=== PATIENT | female | born 1940 | race Caucasian/White ===

== ENCOUNTER 2018-02-19 08:33 | Inpatient (IN) | payer OTHER ==
[2018-01-24 14:17] VITALS: Ht 160 cm; Wt 70.4 kg
--- NOTE | 2018-01-24 14:53 | PAT Medication Instructions ---
Service Date Jan 24, 2018. Current Home Medication List Acetaminophen (Tylenol), 1 TAB PO TID Alendronate Sodium (Fosamax), 70 MG PO WK Aspirin (Aspirin Ec), 81 MG PO QAM Calcium Carbonate (Tums), 1 TAB PO QD PRN for Indigestion Cholecalciferol (Vitamin D3), 1,000 INTER.UNIT PO QAM Fluticasone Propionate (Cutivate), 1 APPLN EX QD PRN for SKIN IRRITATION Gabapentin (Neurontin), 300 MG PO BID Glimepiride (Glimepiride), 1 TAB PO DAILYBL Hctz/Losartan (Hyzaar 25MG/100MG), 1 TAB PO QPM Magnesium Hydroxide (Milk Of Magnesia), 30 ML PO QD PRN for Constipation Magnesium Oxide (Mag-Ox), 400 MG PO BID Metformin Hcl (Glucophage), 500 MG PO BID Metoprolol Succinate (Metoprolol Succinate ER), 50 MG PO QAM Multiple Vitamins W/ Minerals (Centrum Adults), 1 TAB PO QDD Nitroglycerin (Nitrostat), 0.4 MG UT UD Omeprazole (Prilosec), 20 MG PO BID Simvastatin (Zocor), 40 MG PO HS Warfarin Sodium (Warfarin Sodium), 2.5 MG PO QPM Warfarin Sodium (Warfarin Sodium), 1.25 MG PO QPM Medication Instructions For Your Scheduled Surgery -Continue as directed: Alendronate Sodium (Fosamax), 70 MG PO WK Nitroglycerin (Nitrostat), 0.4 MG UT UD -Contact your event marketing intern and/or prescriber for instructions for: Warfarin Sodium (Warfarin Sodium), 2.5 MG PO QPM Warfarin Sodium (Warfarin Sodium), 1.25 MG PO QPM - Hold the following medications 24 hours prior to surgery: Fluticasone Propionate (Cutivate), 1 APPLN EX QD PRN for SKIN IRRITATION - Hold the following medications the night before surgery: Hctz/Losartan (Hyzaar 25MG/100MG), 1 TAB PO QPM - Hold the following medications the morning of surgery: Calcium Carbonate (Tums), 1 TAB PO QD PRN for Indigestion Cholecalciferol (Vitamin D3), 1,000 INTER.UNIT PO QAM Magnesium Hydroxide (Milk Of Magnesia), 30 ML PO QD PRN for Constipation Magnesium Oxide (Mag-Ox), 400 MG PO BID - Take the following medications the morning of surgery with a sip of water: Acetaminophen (Tylenol), 1 TAB PO TID Aspirin (Aspirin Ec), 81 MG PO QAM Gabapentin (Neurontin), 300 MG PO BID Metoprolol Succinate (Metoprolol Succinate ER), 50 MG PO QAM Omeprazole (Prilosec), 20 MG PO BID - Take the following medications as scheduled the night before surgery: Acetaminophen (Tylenol), 1 TAB PO TID Calcium Carbonate (Tums), 1 TAB PO QD PRN for Indigestion (if needed) Gabapentin (Neurontin), 300 MG PO BID Glimepiride (Glimepiride), 1 TAB PO DAILYBL Magnesium Hydroxide (Milk Of Magnesia), 30 ML PO QD PRN for Constipation (if needed) Magnesium Oxide (Mag-Ox), 400 MG PO BID Metformin Hcl (Glucophage), 500 MG PO BID Multiple Vitamins W/ Minerals (Centrum Adults), 1 TAB PO QDD Omeprazole (Prilosec), 20 MG PO BID Simvastatin (Zocor), 40 MG PO HS If you have any questions please call us at [phone] or [phone] or [phone]
[2018-01-24 15:44] LABS: BASO % 0.2 %; BASO ABS # 0.01 K/uL (0-0.2); EOS % 1.4 %; EOS ABS # 0.09 K/uL (0-0.5); HEMATOCRIT 39.1 % (37-47); HEMOGLOBIN 13.4 g/dL (12.0-16.0); LYMPH % 31.8 %; LYMPH ABS # 2.03 K/uL (1.2-3.4); MEAN CELL VOLUME 91.1 fL (80-100); MEAN CORPUSCULAR HEMOGLOBIN 31.2 pg (25-34); MEAN CORPUSCULAR HGB CONC 34.3 g/dl (32-36); MEAN PLATELET VOLUME 9.8 fL (7.4-10.4); MONO % 15.4 %; MONO ABS # 0.98 K/uL (0.11-0.59); NEUT % 51.2 %; NEUT ABS # 3.27 K/uL (1.4-6.5); PLATELET COUNT 373 K/uL (130-400); RED CELL DISTRIBUTION WIDTH CV 12.8 % (11.5-14.5); RED CELL DISTRIBUTION WIDTH SD 42.5 fL (36.4-46.3); WHITE BLOOD COUNT 6.38 K/uL (4.8-10.8)
--- NOTE | 2018-01-24 15:46 | DIAGNOSTIC IMAGING REPORT ---
CHEST 2 VIEWS ROUTINE CLINICAL HISTORY: Preoperative chest COMPARISON STUDY: October 2015 FINDINGS: The heart is borderline enlarged. There is no failure. There is no focal pulmonary consolidation. There are no pleural effusions. There is a suspected small hiatal hernia.[ IMPRESSION: No active disease in the chest. Electronically signed by: Jhon Edwards M.D. 01/24/2018 3:45 PM Dictated Date/Time: 01/24/2018 3:44 PM
[2018-01-24 16:42] LABS: CALCIUM 9.4 mg/dl (8.5-10.1); CREATININE 0.75 mg/dl (0.60-1.20)
[~2018-02-19] VITALS: Ht 160 cm; Wt 70.4 kg
[2018-02-19] VITALS (9 sets, daily range): BP systolic 135–188; BP diastolic 75–89; PULSE 60–82; TEMP 36.3–36.4; O2SAT 93–100
[~2018-02-19 08:33] MED LIST: ACET-1256 PO; ACETAMINOPHEN 500 MG TAB PO SCH; ALEN70TA4 PO; ASPI81TA28 PO; CALC500C3 PO; CHOL1000 PO; CLINDAMYCIN 600 MG/54 ML D5W 54 ML IV SCH; CeleBREX 200 MG CAP PO SCH; FLUT0.0533 EX; GABA-113 PO; GABAPENTIN 300 MG CAP PO SCH; GLC/500 PO; GLIM1TAB2 PO; HYZAAR PO; LACTATED RINGER'S 1000ML 1,000 ML IV SCH; MAGN400T6 PO; MOML PO; MULT-610 PO; NTRGSL/4 UT; PRLSR20 PO; SIMV40TA4 PO; TPRSR/25 PO; WARF-280 PO
[2018-02-19 09:20] LABS: PTT PATIENT 23.7 SECONDS (21.0-31.0)
--- NOTE | 2018-02-19 10:02 | History & Physical Bridge Note ---
H&P Re-Evaluation Bridge Note: I have examined the patient, reviewed the History & Physical and in the interval since the performance of the History & Physical I have noted the following changes of clinical significance: No changes noted
--- NOTE | 2018-02-19 10:03 | History and Physical ---
History & Physical Date Feb 19, 2018. Chief Complaint Back and leg pain History of Present Illness The patient is a 77 year old female with complaints of back and leg pain Past Medical/Surgical History Medical Problems: (1) Atrial fibrillation (2) Diabetes Additional History Hepatic Disease: No Endocrine Disorder: No Kidney Disease: No Hypertension: Yes Heart Disease: No Bleeding Tendencies: No Infectious Diseases: No Allergies Coded Allergies: Morphine (Verified Allergy, Unknown, HALLUCINATES, 02/19/18) Penicillins (Verified Allergy, Unknown, Hives, 02/19/18) Meperidine (Verified Adverse Reaction, Mild, "nausea and vomiting", 02/19/18 ) Home Medications Scheduled Acetaminophen (Tylenol), 1 TAB PO TID Alendronate Sodium (Fosamax), 70 MG PO WK Aspirin (Aspirin Ec), 81 MG PO QAM Cholecalciferol (Vitamin D3), 1,000 INTER.UNIT PO QAM Gabapentin (Neurontin), 300 MG PO BID Glimepiride (Glimepiride), 1 TAB PO DAILYBL Magnesium Oxide (Mag-Ox), 400 MG PO BID Metformin Hcl (Glucophage), 500 MG PO BID Metoprolol Succinate (Metoprolol Succinate ER), 50 MG PO QAM Multiple Vitamins W/ Minerals (Centrum Adults), 1 TAB PO QDD Nitroglycerin (Nitrostat), 0.4 MG UT UD Omeprazole (Prilosec), 20 MG PO BID Simvastatin (Zocor), 40 MG PO HS Warfarin Sodium (Warfarin Sodium), 2.5 MG PO QPM Warfarin Sodium (Warfarin Sodium), 1.25 MG PO QPM [Hyzaar], 1 TAB PO QPM Scheduled PRN Calcium Carbonate (Tums), 1 TAB PO QD PRN for Indigestion Fluticasone Propionate (Cutivate), 1 APPLN EX QD PRN for SKIN IRRITATION Magnesium Hydroxide (Milk Of Magnesia), 30 ML PO QD PRN for Constipation Physical Examination Skin: warm/dry, no rash Eyes: normal inspection, EOMI, sclerae normal ENT: normal ENT inspection, pharynx normal Head: normocephalic, atraumatic Neck: supple, no adenopathy, trachea midline Respiratory/Chest: lungs clear, normal breath sounds, no respiratory distress Cardiovascular: regular rate, rhythm, no edema, no murmur Abdomen / GI: normal bowel sounds, non tender Back: normal inspection Extremities: normal inspection, normal range of motion Neurologic/Psych: no motor/sensory deficits, alert, normal reflexes, oriented x 3 Plan of Treatment Hardware removal L4-S1, L3-L4 decompression and fusion
[2018-02-19] MEDS ORDERED: FENTANYL CITRATE INJ 50 MCG/1 ML 2 ML VIAL ONE ×2 (10:11→10:39)
[2018-02-19] MEDS ORDERED: MIDAZOLAM HCL 1 MG/ML 2ML VIAL ONE (10:11)
[2018-02-19] MEDS ORDERED: BUPIVACAINE/EPINEPHRINE 0.5% MPF 1:200,000 30 ML VIAL ONE (10:12)
[2018-02-19] MEDS ORDERED: BACITRACIN 50000 UNIT VIAL ONE (10:12)
[2018-02-19] MEDS ORDERED: FENTANYL CITRATE INJ 50 MCG/1 ML 2 ML VIAL IV PRN (11:00)
[2018-02-19] MEDS ORDERED: HYDROmorphone INJ 0.5 MG/0.5 ML SYR IV PRN (11:00)
[2018-02-19] MEDS ORDERED: PROMETHAZINE HCL INJ 6.25 MG in SODIUM CHLORIDE 0.9% 50ML 50 ML IV PRN (11:00)
[2018-02-19] MEDS ORDERED: ONDANSETRON INJ 2 MG/ML 2 ML VIAL IV PRN ×2 (11:00→12:30)
[2018-02-19] MEDS ORDERED: EpHEDrine SULFATE INJ 50 MG/ML AMP IV PRN (11:00)
[2018-02-19] MEDS ORDERED: ATROPINE SULFATE 0.1 MG/ML 5ML SYR IV PRN (11:00)
[2018-02-19] MEDS ORDERED: HYDROmorphone INJ 2 MG/ML SYR/VIAL ONE ×2 (11:01→12:09)
[2018-02-19] MEDS ORDERED: DURASEAL DURAL SEALANT 5ML TOP ONE (11:44)
[2018-02-19] MEDS ORDERED: FLOSEAL HEMOSTATIC MATRIX 10ML TOP ONE (11:54)
[2018-02-19] MEDS ORDERED: PROPOFOL IV EMULSION 10 MG/ML 20 ML VIAL IV ONE (12:09)
[2018-02-19] MEDS ORDERED: ESMOLOL HCL 10 MG/ML 10 ML VIAL ONE (12:09)
[2018-02-19] MEDS ORDERED: GLYCOPYRROLATE INJ 0.2 MG/ML VIAL ONE (12:09)
[2018-02-19] MEDS ORDERED: PHENYLEPHRINE 100MCG/ML 5ML SYR ONE (12:09)
[2018-02-19] MEDS ORDERED: ONDANSETRON INJ 2 MG/ML 2 ML VIAL ONE (12:09)
[2018-02-19] MEDS ORDERED: NEOSTIGMINE METHYLSULFATE 1 MG/ML 10ML VIAL ONE (12:09)
[2018-02-19] MEDS ORDERED: DEXAMETHASONE SOD INJ 4 MG/ML VIAL ONE (12:09)
[2018-02-19] MEDS ORDERED: LIDOCAINE HCL 2% 2 ML VIAL (20MG/ML) ONE (12:09)
[2018-02-19] MEDS ORDERED: KETOROLAC TROMETHAMINE 30 MG/ML VIAL ONE (12:09)
[2018-02-19] MEDS ORDERED: ROCURONIUM BROMIDE 10 MG/ML 5 ML VIAL IV ONE (12:09)
--- NOTE | 2018-02-19 12:20 | [facility] Operative Report ---
Operative Report Operative Date Feb 19, 2018. Pre-Operative Diagnosis Previous Lumbar Fusion L4-L5, L5-S1, Spinal Stenosis L3-L4 Post-Operative Diagnosis Previous Lumbar Fusion L4-L5, L5-S1, Spinal Stenosis L3-L4 Procedure(s) Performed 1. Removal posterior segmental instrumentation L4-5 L5-S1. #2 expiration of fusion L4-5 L5-S1. #3 lumbar decompression medial facetectomies foraminotomies L3-4. #4 posterior spinal fusion L3-4. #5 placement of posterior instrumentation L3-4. #6 placement of locally harvested morselized autograft in the posterior lateral gutters. #7 placement of infuse collagen sponge combined with mass graft and ostial amp in the posterior lateral gutters. Surgeon Dr. Hernandez Pipe Finisher Surgeon(s) none Estimated Blood Loss 175 ml Findings Severe spinal stenosis Specimens A. Removed Hardware L4-S1 Anesthesia Type General Description of Procedure Patient was met with preoperatively case discussed all questions addressed. After informed consent obtained patient was taken to the operative suite underwent intubation and placed in a prone position the Randolph table on top of the Kaiser frame. All bony prominences were well-padded the eyes inspected to ensure no external pressure placed upon them. This point the lumbar spine was prepped and draped in normal sterile fashion. Sharp dissection with the assistance of Bovie cautery was performed down to and exposing the lamina of L3 and the instrumentation at the L4-L5 and S1 levels bilaterally. I then proceeded remove the hardware at L4-L5 and S1 explain the fusion mass noted to be intact. I then performed a complete laminectomy of L3 addressing severe lateral recess stenosis and foraminal disease. Marked adhesions to the dura were noted it was extremely thin. Subsequently did elect to place a cc of DuraSeal over this region. After this complete complete pedicle screws were placed in L3 and L4 bilaterally with the assistance of fluoroscopy and appropriately sized teagan placed and locked into position. Transverse processes of L3 and L4 were then burred to subcortical bleeding bone. Infuse collagen sponge master graft and locally harvested Campbell's allograft was then placed in the posterior lateral gutters. This includes ostial amp. A 15 round MAGALI drain inserted. The incision was then closed with 1 Vicryl fascia 2-0 Vicryl subcutaneously and 4-0 Monocryl for final skin closure Steri-Strips sterile dressings placed. Patient would continue to PACU stable condition. I attest to the content of the Intraoperative Record and any orders documented therein. Any exceptions are noted below.
[2018-02-19] MEDS ORDERED: SODIUM CHLORIDE 0.9% 1000ML 1,000 ML IV SCH (12:21)
[2018-02-19] MEDS ORDERED: FAMOTIDINE 20 MG TAB PO PRN (12:30)
[2018-02-19] MEDS ORDERED: ACETAMINOPHEN IV 100 ML IV PRN (12:30)
[2018-02-19] MEDS ORDERED: DO NOT ADMINISTER PNEUMOCOCCAL VACCINE PRN (12:30)
[2018-02-19] MEDS ORDERED: LORAZEPAM INJ 0.5 MG in SYRINGE 0.75 ML IV PRN (12:30)
[2018-02-19] MEDS ORDERED: MAGNESIUM HYDROXIDE SUSP 30 ML UDC PO PRN ×2 (12:30)
[2018-02-19] MEDS ORDERED: NITROGLYCERIN 0.4 MG SL PER TAB CHARGE UT PRN (12:30)
[2018-02-19] MEDS ORDERED: ALUMINUM/MAGNESIUM SUSP 30 ML UDC PO PRN (12:30)
[2018-02-19] MEDS ORDERED: METOCLOPRAMIDE HCL INJ 5 MG/ML 2 ML VIAL IV PRN (12:30)
[2018-02-19] MEDS ORDERED: hydrOXYzine HCL 25 MG TAB PO PRN (12:30)
[2018-02-19] MEDS ORDERED: NALOXONE HCL 0.4 MG/1 ML VIAL/CARP IV PRN ×2 (12:30)
[2018-02-19] MEDS ORDERED: BISACODYL 10 MG SUPP PR PRN (12:30)
[2018-02-19] MEDS ORDERED: DO NOT ADMINISTER FLU VACCINE PRN (12:30)
[2018-02-19] MEDS ORDERED: PROMETHAZINE HCL INJ 12.5 MG in SODIUM CHLORIDE 0.9% 50ML 50 ML IV PRN (12:30)
[2018-02-19] MEDS ORDERED: ACETAMINOPHEN 500 MG TAB PO PRN (12:30)
[2018-02-19] MEDS ORDERED: SOD PHOSPHATE/SOD BIPHOSPHATE ENEMA 132 ML BTL PR PRN (12:30)
[2018-02-19] MEDS ORDERED: LORAZEPAM 0.5 MG TAB PO PRN (12:30)
[2018-02-19] MEDS ORDERED: HYDROmorphone HCL 0.5MG/ML 50 ML CASSETTE ONE (12:31)
--- NOTE | 2018-02-19 13:20 | DIAGNOSTIC IMAGING REPORT ---
INTRAOPERATIVE RADIOGRAPHS CLINICAL HISTORY: L3-L4 spinal fusion. Hardware removal. Fluoroscopy time: 8 seconds. FINDINGS: 2 spot fluoroscopic views of the lumbar spine are presented. There is postlaminectomy change seen throughout the lumbar spine. Interpedicular screws are seen at L3-L4 with fusion at this level. The hardware appears intact. There is been discectomy at L4-L5 and L5-S1. IMPRESSION: Intraoperative images from L3-L4 spinal fusion as above. Electronically signed by: Trent Liz M.D. 02/19/2018 1:18 PM Dictated Date/Time: 02/19/2018 1:17 PM
--- NOTE | 2018-02-19 13:34 | Anesthesiology Progress Note ---
Anesthesia Post Op Note Date & Time Feb 19, 2018 at 13:34 Vital Signs Pain Intensity: 3 Vital Signs Past 12 Hours Date Time Temp Pulse Resp B/P (MAP) Pulse Ox O2 Delivery O2 Flow Rate FiO2 02/19/18 13:19 68 16 136/71 100 Oxymask 4 02/19/18 13:05 36.2 63 14 145/90 100 Oxymask 4 02/19/18 12:55 63 13 153/81 100 Oxymask 4 02/19/18 12:45 70 14 153/91 100 Oxymask 10 02/19/18 12:35 71 14 149/88 100 Oxymask 10 02/19/18 12:26 36.7 66 14 145/77 100 Oxymask 10 02/19/18 09:15 36.3 82 20 188/89 99 Room Air Notes Mental Status: alert / awake / arousable, participated in evaluation Pt Amnestic to Procedure: Yes Nausea / Vomiting: adequately controlled Pain: adequately controlled Airway Patency, RR, SpO2: stable & adequate BP & HR: stable & adequate Hydration State: stable & adequate Anesthetic Complications: no major complications apparent
[2018-02-19] MEDS ORDERED: GLUCOSE 10 TABS/TUBE PO PRN (14:30)
[2018-02-19] MEDS ORDERED: DEXTROSE 50% 50 ML SYR IV PRN (14:30)
[2018-02-19] MEDS ORDERED: GLUCAGON FOR INJ 1 MG VIAL SQ PRN (14:30)
[2018-02-19] MEDS ORDERED: GLUCOSE 40% GEL 15 GM TUBE PO PRN (14:30)
--- NOTE | 2018-02-19 14:34 | Medical Consult ---
Consultation Date of Consultation: Feb 19, 2018. Attending Physician: Otis Hernandez D.O. Reason for Consultation: post-op medical management History of Present Illness This is a 77yo F with a PMH of DM II, HTN, HLD, chronic A Fib and spinal stenosis with neurogenic claudication who is POD #0 s/p L4-S1 hardware removal and L3-L4 decompression fusion by Dr. Hernandez. Patient is doing well post- operatively. States that back pain is a 0/10. Denies any pain, fever, chills, lightheadedness, headache, visual changes, CP, SOB, abdominal pain, nausea, vomiting, dysuria or LE swelling. PCP is Dr. Soler. Has DM II. Most recent hgb a1c was 6.6 in Oct 2017. Takes metformin and glimepiride. Has a history of A fib with a CHADS2 score of 3, for which she is on Coumadin. Was instructed by cardiology clinic to stop Coumadin 5 days pre-operatively without need for Lovenox bridge. Denies any personal history of CHF, DVT/PE or CVA. Past Medical/Surgical History Medical Problems: (1) Atrial fibrillation Status: Chronic (2) Diabetes mellitus, type II Status: Chronic (3) GERD (gastroesophageal reflux disease) Status: Chronic (4) HLD (hyperlipidemia) Status: Chronic (5) HTN (hypertension) Status: Chronic (6) Lumbar stenosis with neurogenic claudication Status: Chronic (7) Osteoarthritis Status: Chronic (8) Osteoporosis Status: Chronic Surgical Problems: (1) H/O Spinal surgery Permanent Comment: Sep 2009: Lumbar decompression and fusion, February 2018: L4-S1 hardware removal, L3-L4 decompression and fusion. Status: Chronic Family History Diabetes mellitus Heart disease Social History Smoking Status: Never Smoker Alcohol Use: none Drug Use: none Marital Status: Housing Status: lives with significant other Occupation Status: retired Allergies Coded Allergies: Penicillins (Verified Allergy, Unknown, Hives, 02/19/18) Meperidine (Verified Adverse Reaction, Mild, "nausea and vomiting", 02/19/18 ) Morphine (Verified Adverse Reaction, Unknown, HALLUCINATES, 02/19/18) Home Medications Reported Home Medications Medications Dose Route/Sig Max Daily Dose Days Date Category Dose Instructions [Hyzaar] 1 Tab PO QPM 02/18/18 Reported 12.5/100 MG DOSE Centrum Adults (Multiple Vitamins W/ Minerals) 1 Tab Tab 1 Tab PO QDD 01/24/18 Reported Tylenol (Acetaminophen) 500 Mg Tab 1 Tab PO TID 3 01/24/18 Reported Milk Of Magnesia (Magnesium Hydroxide) 30 Ml Susp 30 Ml PO QD PRN 01/24/18 Reported Cutivate (Fluticasone Propionate) 0.05 % Cre 1 Appln EX QD PRN 01/24/18 Reported Tums (Calcium Carbonate) 500 Mg Chew 1 Tab PO QD PRN 01/24/18 Reported Mag-Ox (Magnesium Oxide) 400 Mg Tab 400 Mg PO BID 01/24/18 Reported Vitamin D3 (Cholecalciferol) 1,000 Unit Tab 1,000 Inter.unit PO QAM 11/02/15 Reported Glimepiride 1 Mg Tab 1 Tab PO DAILYBL 11/02/15 Reported Warfarin Sodium 2.5 Mg Tab 1.25 Mg PO QPM 11/02/15 Reported TAKE HALF A TABLET (1.25 MG) SUNDAY AND SUNDAY Warfarin Sodium 2.5 Mg Tab 2.5 Mg PO QPM 11/02/15 Reported TAKE 2.5 MG EVERY SUNDAY,SUNDAY,SUNDAY,SUNDAY AND SUNDAY OR OTHERWISE DIRECTED TO TAKE BY ANTICOAGULATION CLINIC//MD. Fosamax (Alendronate Sodium) 70 Mg Tab 70 Mg PO WK 11/02/15 Reported TAKE THIS MEDICATION EVERY SUNDAY 30 MINUTES BEFORE FIRST MEAL OF THE DAY WITH 8 OUNCES OF WATER. REMAIN UPRIGHT FOR 30 MINUTES AFTER TAKING. Metoprolol Succinate ER (Metoprolol Succinate) 25 Mg Tabcr 50 Mg PO QAM 11/02/15 Reported Glucophage (Metformin Hcl) 500 Mg Tab 500 Mg PO BID 11/02/15 Reported Zocor (Simvastatin) 40 Mg Tab 40 Mg PO HS 11/02/15 Reported Aspirin Ec (Aspirin) 81 Mg Tab 81 Mg PO QAM 11/02/15 Reported Prilosec (Omeprazole) 20 Mg Capcr 20 Mg PO BID 08/24/09 Reported TAKES BEFORE BREAKFAST AND DINNER Neurontin (Gabapentin) 300 Mg Cap 300 Mg PO BID 08/24/09 Reported Nitrostat (Nitroglycerin) 0.4 Mg Tab 0.4 Mg UT UD 08/24/[address] ONE TABLET UNDER THE TONGUE EVERY 5 MINUTES FOR UP TO 3 DOSES OVER 15 MINUTES IF NEEDED FOR CHEST PAIN. Current Inpatient Medications Current Inpatient Medications Medications (Trade) Dose Ordered Sig/Aly Route Start Time Stop Time Status Last Admin Dose Admin Fentanyl Citrate (Fentanyl Inj) 50 mcg Q5M PRN IV 02/19/18 11:00 02/19/18 16:00 Hydromorphone HCl (Dilaudid Inj) 0.5 mg Q5M PRN IV 02/19/18 11:00 02/19/18 16:00 Ondansetron HCl (Zofran Inj) 4 mg ONE PRN IV 02/19/18 11:00 02/19/18 16:00 Promethazine HCl 6.25 mg/Sodium Chloride 50.25 ml @ 202 mls/hr ONE PRN IV 02/19/18 11:00 02/19/18 16:00 Ephedrine Sulfate (EpHEDrine SULFATE INJ) 5 mg Q5M PRN IV 02/19/18 11:00 02/19/18 16:00 Atropine Sulfate (Atropine Sulfate 0.1mg/ml Inj) 0.5 mg Q1M PRN IV 02/19/18 11:00 02/19/18 16:00 Clindamycin Phosphate 600 mg/ Dextrose 54 ml @ 100 mls/hr Q8H IV 02/19/18 18:00 02/20/18 02:33 Promethazine HCl 12.5 mg/Sodium Chloride 50.5 ml @ 202 mls/hr Q6H PRN IV 02/19/18 12:30 03/21/18 12:29 Ondansetron HCl (Zofran Inj) 4 mg Q6H PRN IV 02/19/18 12:30 03/21/18 12:29 Metoclopramide HCl (Reglan Inj) 10 mg Q6H PRN IV 02/19/18 12:30 03/21/18 12:29 Lorazepam (Ativan Tab) 0.5 mg Q8H PRN PO 02/19/18 12:30 03/21/18 12:29 Lorazepam 0.5 mg/ Syringe 1 ml @ 1 mls/min Q8H PRN IV 02/19/18 12:30 03/21/18 12:29 Pneumococcal Polysaccharide Vaccine 1 ea PRN PRN N/A 02/19/18 12:30 03/21/18 12:29 Influenza Virus Vacc Triv Types A&B 1 ea PRN PRN N/A 02/19/18 12:30 03/21/18 12:29 Polyethylene (Miralax Powder Packet) 17 gm Q6 PO 02/21/18 06:00 03/23/18 05:59 Bisacodyl (Dulcolax Supp) 10 mg DAILY PRN DC 02/19/18 12:30 03/21/18 12:29 Magnesium Hydroxide (Milk Of Magnesia Susp) 30 ml DAILY PRN PO 02/19/18 12:30 03/21/18 12:29 Hydromorphone HCl (Dilaudid Inj) 0.5 mg Q3H PRN IV 02/20/18 06:00 03/06/18 05:59 Oxycodone HCl (Roxicodone Immediate Rel Tab) 5-10mg prn moderate to sev... Q4H PRN PO 02/20/18 06:00 03/06/18 05:59 Sodium Chloride 1,000 ml @ 150 mls/hr Q6H40M IV 02/19/18 12:21 03/21/18 12:20 Acetaminophen (Tylenol Tab) 1,000 mg Q8H PRN PO 02/19/18 12:30 03/21/18 12:29 Acetaminophen 100 ml @ 400 mls/hr Q8H PRN IV 02/19/18 12:30 03/21/18 12:29 Naloxone HCl (Narcan Inj) 0.1 mg Q5M PRN IV 02/19/18 12:30 03/21/18 12:29 Senna/Docusate Sodium (Senokot S Tab) 2 tab HS PO 02/19/18 21:00 03/21/18 20:59 Sodium Biphosphate/ Sodium Phosphate (Fleet Enema) 132 ml ONE PRN DC 02/19/18 12:30 03/21/18 12:29 Hydroxyzine HCl (Vistaril Tab) 25 mg Q8H PRN PO 02/19/18 12:30 03/21/18 12:29 Al Hydroxide/Mg Hydroxide (Maalox Susp) 30 ml Q6H PRN PO 02/19/18 12:30 03/21/18 12:29 Famotidine (Pepcid Tab) 20 mg Q12 PRN PO 02/19/18 12:30 03/21/18 12:29 Diphenhydramine HCl (Benadryl Cap) 25 mg Q6H PRN PO 02/19/18 12:30 03/21/18 12:29 Miscellaneous Information (Discontinue DIRECT MAIL MARKETER) 1 ea TODAY@0600 N/A 02/20/18 06:00 02/20/18 06:01 Naloxone HCl (Narcan Inj) 0.1 mg Q5M PRN IV 02/19/18 12:30 02/20/18 06:00 Hydromorphone HCl (Dilaudid Roller Repairer) 25 mg PRN PRN IV 02/19/18 12:30 02/20/18 06:00 Sodium Chloride 1,000 ml @ 15 mls/hr Q24H IV 02/19/18 12:21 02/20/18 06:00 Aspirin (Ecotrin Tab) 81 mg QAM PO 02/20/18 09:00 03/22/18 08:59 Gabapentin (Neurontin Cap) 300 mg BID PO 02/19/18 21:00 03/21/18 20:59 Magnesium Oxide (Mag-Ox Tab) 400 mg BID PO 02/19/18 21:00 03/21/18 20:59 Metoprolol Succinate (Toprol Xl Tab) 50 mg QAM PO 02/20/18 09:00 03/22/18 08:59 Nitroglycerin (Nitrostat Tab) 0.4 mg UD PRN UT 02/19/18 12:30 03/21/18 12:29 Simvastatin (Zocor Tab) 40 mg HS PO 02/19/18 21:00 03/21/18 20:59 Pantoprazole Sodium (Protonix Tab) 40 mg BID PO 02/19/18 21:00 03/21/18 20:59 Losartan Potassium (coZAAR TAB) 100 mg QPM PO 02/19/18 21:00 03/21/18 20:59 Hydromorphone HCl (Dilaudid Inj) 1 mg Q3H PRN IV 02/20/18 06:00 03/06/18 05:59 Hydrochlorothiazide (Hydrochlorothiazide Tab) 12.5 mg QPM PO 02/19/18 21:00 03/21/18 20:59 Insulin Glargine (Lantus Solostar Pen) 6 units Q12 SC 02/19/18 21:00 03/21/18 20:59 UNV Insulin Aspart (novoLOG ASPART) SLIDING SCALE If C... ACHS SC 02/19/18 17:15 03/21/18 17:14 UNV Glucose (Glucose 40% Gel) 15-30 GRAMS 15 GRAMS... UD PRN PO 02/19/18 14:30 03/21/18 14:29 UNV Glucose (Glucose Chew Tab) 4-8 Tablets 4 Tabl... UD PRN PO 02/19/18 14:30 03/21/18 14:29 UNV Dextrose (Dextrose 50% 50ML Syringe) 25-50ML OF 50% DW IV FOR... UD PRN IV 02/19/18 14:30 03/21/18 14:29 UNV Glucagon (Glucagon Inj) 1 mg UD PRN SQ 02/19/18 14:30 03/21/18 14:29 UNV Review of Systems Ten systems reviewed and negative except as noted in the HPI. Physical Exam Date Time Temp Pulse Resp B/P (MAP) Pulse Ox O2 Delivery O2 Flow Rate FiO2 02/19/18 14:05 60 17 140/86 (104) 100 02/19/18 13:35 100 Nasal Cannula 4.0 02/19/18 13:35 Nasal Cannula 2.0 02/19/18 13:35 36.4 68 18 152/84 (106) 100 Nasal Cannula 4.0 02/19/18 13:19 68 16 136/71 100 Oxymask 4 02/19/18 13:05 36.2 63 14 145/90 100 Oxymask 4 02/19/18 12:55 63 13 153/81 100 Oxymask 4 02/19/18 12:45 70 14 153/91 100 Oxymask 10 02/19/18 12:35 71 14 149/88 100 Oxymask 10 02/19/18 12:26 36.7 66 14 145/77 100 Oxymask 10 02/19/18 09:15 36.3 82 20 188/89 99 Room Air General Appearance: WD/WN, no apparent distress Head: normocephalic, atraumatic Eyes: normal inspection, PERRL, sclerae normal ENT: normal ENT inspection, hearing grossly normal, pharynx normal (moist mucous membranes ) Neck: supple, no adenopathy, trachea midline Respiratory/Chest: chest non-tender, lungs clear, normal breath sounds, no respiratory distress, no accessory muscle use, + pertinent finding (Normal O2 saturation on 2L NC) Cardiovascular: no murmur, normal peripheral pulses, + irregularly irregular Abdomen/GI: non tender, soft, no organomegaly Back: + pertinent finding (Dressing in place. Clean, dry, intact. Drain visualized. ) Extremities/Musculoskelatal: normal inspection, no calf tenderness, no pedal edema Neurologic/Psych: no motor/sensory deficits, alert, normal mood/affect, oriented x 3 Skin: normal color, warm/dry Laboratory Results Last 24 Hours Test 02/19/18 09:03 02/19/18 09:47 02/19/18 12:30 Prothrombin Time 10.7 SECONDS Prothromb Time International Ratio 1.0 Activated Partial Thromboplast Time 23.7 SECONDS Partial Thromboplastin Ratio 0.9 Bedside Glucose 129 mg/dl 134 mg/dl Assessment & Plan This is a 77yo F with a PMH of DM II, HTN, HLD, chronic A Fib and spinal stenosis with neurogenic claudication who is POD #0 s/p L4-S1 hardware removal and L3-L4 decompression fusion by Dr. Hernandez. Spinal stenosis s/p hardware removal, decompression fusion: -POD #0 -L4-S1 hardware removal and L3-L4 decompression fusion by Dr. Hernandez. -Doing well post-operatively -Per ortho for pain control, wound care, anticoagulation and activities -Monitor H&H, continue incentive spirometry, PT/OT when appropriate DM II: -Hgb a1c was 6.6 in Oct 2017 -Repeat a1c is pending -Hold home oral agents -Received 12mg decadron intraoperatively -Insulin SSI /Basal bolus insulin per protocol while in-patient -BSG check AC HS HTN: -Continue hctz/losartan, metoprolol Chronic A Fib: -Continue metoprolol -Coumadin held 5 days pre-operatively, per cardio -CHADS2 score of 3 -Plan to resume post-operatively, per surgery HLD: -Cont statin PCP: Karlene Dispo: Per ortho Patient seen in collaboration with Dr. Trevizo. Please see addendum. Thank you for this consultation. We will follow the patient with you during their hospital stay. You can reach a member of the [facility] via pager @ . Patient is seen and examined at bedside Post OP. Doing well post operatively. Pain is controlled. Denies chest pain, SOB, dizziness. Medications reviewed. Agree with above management and documentation. Patient care is coordinated with Sari Rojas PA-C. Please call with any questions.
[2018-02-19] MEDS: CLINDAMYCIN IV 600 MG in DEXTROSE 5% 50ML 50 ML IV SCH (17:50)
[2018-02-19] MEDS: SODIUM CHLORIDE 0.9% 1000ML 1,000 ML IV SCH (17:50)
[2018-02-19] MEDS: INSULIN ASPART 100 UNITS/ML 3 ML PEN SC SCH ×2 (18:30→20:52)
[2018-02-19] MEDS: HYDROmorphone HCL 0.5MG/ML 50 ML CASSETTE IV PRN ×2 (19:02→22:58)
[2018-02-19] MEDS: HYDROCHLOROTHIAZIDE 25 MG TAB PO SCH (20:36)
[2018-02-19] MEDS: SIMVASTATIN 40 MG TAB PO SCH (20:43)
[2018-02-19] MEDS: GABAPENTIN 300 MG CAP PO SCH (20:44)
[2018-02-19] MEDS: DOCUSATE SODIUM/SENNA 50/8.6MG TAB PO SCH (20:44)
[2018-02-19] MEDS: PANTOprazole SOD 40 MG TAB PO SCH (20:44)
[2018-02-19] MEDS: LOSARTAN POTASSIUM 50 MG TAB PO SCH (20:44)
[2018-02-19] MEDS: MAGNESIUM OXIDE 400 MG TAB PO SCH (20:45)
[2018-02-19] MEDS: INSULIN GLARGINE SOLOSTAR 100 UNITS/ML 3 ML PEN SC SCH (20:58)
[2018-02-19] MEDS ORDERED: INSULIN GLARGINE SOLOSTAR 100 UNITS/ML 3 ML PEN SC SCH (21:00)
[2018-02-19] MEDS ORDERED: HYZ/10015 PO (21:38)
[2018-02-20] MEDS ORDERED: INSULIN ASPART 100 UNITS/ML 3 ML PEN SC ONE (01:00)
[2018-02-20] MEDS: CLINDAMYCIN IV 600 MG in DEXTROSE 5% 50ML 50 ML IV SCH (01:06)
[2018-02-20] MEDS: SODIUM CHLORIDE 0.9% 1000ML 1,000 ML IV SCH (01:07)
[2018-02-20 03:12] VITALS: BP 147/79; PULSE 88; TEMP 36.6; O2SAT 97
[2018-02-20] MEDS ORDERED: DC PCA SCH (06:00)
[2018-02-20] MEDS ORDERED: HYDROmorphone INJ 2 MG/ML SYR/VIAL IV PRN (06:00)
[2018-02-20] MEDS ORDERED: HYDROmorphone INJ 0.5 MG/0.5 ML SYR IV PRN (06:00)
[2018-02-20] MEDS ORDERED: NURSING DECISION MEDICATION ORDER SCH (06:00)
[2018-02-20 06:36] LABS: HEMATOCRIT 31.8 % (37-47); IG# 0.01 K/uL (0.00-0.02); LYMPH % 6.7 %; LYMPH ABS # 0.67 K/uL (1.2-3.4); MEAN CELL VOLUME 91.4 fL (80-100); MEAN CORPUSCULAR HEMOGLOBIN 31.6 pg (25-34); MEAN CORPUSCULAR HGB CONC 34.6 g/dl (32-36); MEAN PLATELET VOLUME 9.5 fL (7.4-10.4); MONO % 8.5 %; MONO ABS # 0.85 K/uL (0.11-0.59); NEUT % 84.7 %; NEUT ABS # 8.43 K/uL (1.4-6.5); PLATELET COUNT 262 K/uL (130-400); RED CELL DISTRIBUTION WIDTH CV 12.8 % (11.5-14.5); RED CELL DISTRIBUTION WIDTH SD 42.9 fL (36.4-46.3); WHITE BLOOD COUNT 9.96 K/uL (4.8-10.8)
[2018-02-20 07:12] LABS: CREATININE 0.64 mg/dl (0.60-1.20); POTASSIUM 4.2 mmol/L (3.5-5.1)
[2018-02-20 07:56] VITALS: BP 158/88; PULSE 80; TEMP 36.6; O2SAT 95
[2018-02-20] MEDS: OXYCODONE HCL IR 5 MG TAB (IMMEDIATE RELEASE) PO PRN ×3 (07:58→23:35)
[2018-02-20] MEDS: ASPIRIN 81 MG ECTAB PO SCH (08:19)
[2018-02-20] MEDS: MAGNESIUM OXIDE 400 MG TAB PO SCH ×2 (08:20→21:02)
[2018-02-20] MEDS: PANTOprazole SOD 40 MG TAB PO SCH ×2 (08:20→21:02)
[2018-02-20] MEDS: GABAPENTIN 300 MG CAP PO SCH ×2 (08:20→21:02)
[2018-02-20] MEDS: METOPROLOL SUCC 50MG EXT REL TAB PO SCH (08:21)
[2018-02-20 08:31] VITALS: O2SAT 95
[2018-02-20] MEDS: INSULIN ASPART 100 UNITS/ML 3 ML PEN SC SCH ×4 (08:39→21:11)
[2018-02-20] MEDS: INSULIN GLARGINE SOLOSTAR 100 UNITS/ML 3 ML PEN SC SCH ×2 (08:40→21:12)
--- NOTE | 2018-02-20 10:21 | Consultant Recommendations ---
Job Estimator Recommendations Date of Service Feb 20, 2018. Job Estimator Recommendations Subjective: Patient reports she is doing well after her back surgery. Denies acute pain. Physical Exam General: no acute distress, sitting in chair Back: able to lean forward on exam, there is a MAGALI drain collecting blood Lungs: CTABL, no wheezing Heart: heart rate and rhythm sounds regular Abdomen: soft, nontende,r + bowel sounds Extremities: no edema, able to raise both legs on her own power while sitting in chair. Job Estimator recommendations Patient with severe spinal stenosis s/p : Removal posterior segmental instrumentation L4-5 L5-S1. #2 expiration of fusion L4-5 L5-S1. #3 lumbar decompression medial facetectomies foraminotomies L3-4. #4 posterior spinal fusion L3-4. #5 placement of posterior instrumentation L3-4. #6 placement of locally harvested morselized autograft in the posterior lateral gutters. #7 placement of infuse collagen sponge combined with mass graft and ostial amp in the posterior lateral gutters. -Prior to surgery, patient had been on Coumadin at home for anticoagulation because of atrial fibrillation. Patient did stop taking coumadin during the days leading to the surgery. Would recommend that coumadin be restarted after MAGALI drain is removed and when orthopedics service deems that patient will be a low bleeding risk post-op. -Continue metoprolol for heart rate control -HTN history: Continue hctz/losartan -HLD: Cont statin -DM II: continue insulin for now. Restart home oral agents when near time for discharge -mild hyponatremia. outpatient baseline labs of serum sodium 133. in the hospital the serum sodium is 130 and then 129. recommend monitoring serum sodium levels for now. adding serum and urine osmolality labs DVT ppx as per orthopedics, restart coumadin later as per orthopedics
--- NOTE | 2018-02-20 10:47 | Anesthesiology Progress Note ---
Anesthesia Post Op Note Date & Time Feb 20, 2018 at 10:47 Vital Signs Vital Signs Past 12 Hours Date Time Temp Pulse Resp B/P (MAP) Pulse Ox O2 Delivery O2 Flow Rate FiO2 02/20/18 08:31 95 Room Air 02/20/18 08:03 Room Air 02/20/18 07:56 36.6 80 20 158/88 (111) 95 Room Air 02/20/18 03:12 36.6 88 16 147/79 (101) 97 Room Air 02/19/18 23:20 Room Air Notes Mental Status: alert / awake / arousable, participated in evaluation Pt Amnestic to Procedure: Yes Nausea / Vomiting: adequately controlled Pain: adequately controlled Airway Patency, RR, SpO2: stable & adequate BP & HR: stable & adequate Hydration State: stable & adequate Anesthetic Complications: no major complications apparent
[2018-02-20 11:57] VITALS: BP 144/84; PULSE 82; TEMP 36.4; O2SAT 96
[2018-02-20] MEDS ORDERED: RXC5 PO (13:44)
--- NOTE | 2018-02-20 13:45 | Discharge Instructions ---
Discharge Instructions Date of Service Feb 20, 2018. Admission Reason for Admission: Spinal Stenosis Discharge Discharge Diagnosis / Problem: lumbar stenosis Discharge Goals Goal(s): Improve function Activity Recommendations Activity Limitations: per Instructions/Follow-up section . Instructions / Follow-Up Instructions / Follow-Up ACTIVITY RECOMMENDATIONS: SELF CARE INSTRUCTIONS AFTER THORACIC/LUMBAR FUSIONS 1. You may walk to your tolerance. It is good exercise for your legs and back. Expect some back and intermittent leg aches and pains. 2. You may perform "counter-top" level activities (make a sandwich, brian with a project, etc.). 3. No bending or lifting of more than 10 pounds or back twisting of any nature (roll like a log when turning in bed). 4. You may ride in a car for 20-30 minutes at a time. No driving until after your first visit with your doctor. 5. Frequent changes of position and restricting sitting to 30 minutes at a time will help limit the amount of back spasms and stiffness you may experience. 6. You may discontinue the use of ambulatory aids (cane, crutches, etc.) once your strength and confidence allow. 7. You may leaf tinner the shower and let water strike your incision when you arrive home at least once daily. Do not take a tub bath, sit in a hot tub or go into a swimming pool until after your first recheck in the office. SPECIAL CARE INSTRUCTIONS: VERY IMPORTANT TO READ AND REVIEW A. Your surgical incision has been closed with a cosmetic suture under the skin that will dissolve in about 6 weeks. In 14 days, you can use a pair of clean scissors and cut the suture that is left outside of the skin at the ends of your incision. 1. The small skin tapes can be removed 7 days after surgery if they have not fallen off by that point. 2. You may keep the wound open to air as much as possible to promote healing after post-op day number 5 unless told otherwise by your doctor. 3. If you think the wound looks like it is becoming infected (redness or worsening drainage) and/or you are experiencing fever, chill or worsening back pain and muscle spasms, contact the office so that we may evaluate you as soon as possible. B. Complications are uncommon, but please contact us if you have any signs or symptoms of: 1. wound infection (fever higher than 102.5 degrees F, redness, separation of wound, drainage, or increasing pain from the incision) 2. blood clots in legs (pain, swelling, redness and warmth in legs) 3. urinary tract infection (fever higher than 102.5 degrees F, burning upon urination or increased frequency of urination) 4. nerve problems (inability to walk on your toes or heels, numbness, loss of bowel or bladder control) 5. any other symptoms that concern you C. Please call the office at if you have any concerns or questions about your operation or recovery. D. No smoking! Smoking drastically decreases the chance of a solid fusion. E. Do not take any anti-inflammatory medications (Indocin, Advil, Motrin, Aspirin, Naprosyn, etc.) as these may inhibit the chance of a solid fusion. Tylenol is okay to take for pain. MANAGING PAIN AFTER SPINAL SURGERY 1. Narcotic medication is intended for short-term use and will be provided for surgical pain. Surgical pain usually lasts for a period of 4-6 weeks. Narcotic medication includes Percocet, Vicodin, Darvocet, Tylenol #3 or Lortab. 2. Longer-term pain is more appropriately treated with non-narcotic medication such as Tylenol ES. 3. Muscle spasm is not appropriately treated with narcotics. Muscle relaxers such as Soma, Flexeril or Skelaxin can be used along with Tylenol ES. 4. Remember that we all live with some "aches and pains". This is not unusual or uncommon after an injury or as we get older. a. Back pain is expected and may include muscle spasms for 4 to 6 weeks after surgery. The pain should gradually improve. If the pain worsens for no apparent reason, please contact the office. b. Intermittent leg pain may also be experienced and should not be concerned about unless it worsens for no apparent reason. If so, please contact the office. 5. We will provide appropriate medication within the normal guidelines of their prescribed use. We will also be very cautious and aware of potential abuse and extended duration of patients' medication needs. a. Pain medications are for your comfort and to assist with sleep and rest so that the tissue can heal. They are not provided in order to return to normal activity and should not be used through the day. To do so or worsening pain at night can result from ongoing tissue damage and development of tolerance to the prescribed medicine. 6. Please allow 2-3 days to process refills. Prescriptions will not be mailed but must be picked up at the office. FOLLOW UP VISIT: Keep your scheduled follow-up appointment. Any questions, please call the office at . Current Hospital Diet Patient's current hospital diet: Diabetes Type 2 Diet Discharge Diet Recommended Diet: Regular Diet Procedures Procedures Performed: 1. Removal posterior segmental instrumentation L4-5 L5-S1. #2 expiration of fusion L4-5 L5-S1. #3 lumbar decompression medial facetectomies foraminotomies L3-4. #4 posterior spinal fusion L3-4. #5 placement of posterior instrumentation L3-4. #6 placement of locally harvested morselized autograft in the posterior lateral gutters. #7 placement of infuse collagen sponge combined with mass graft and ostial amp in the posterior lateral gutters. Pending Studies Studies pending at discharge: no Laboratory Results Hemoglobin A1c Test 02/20/18 05:55 Range/Units Estimated Average Glucose 154 mg/dl Hemoglobin A1c 7.0 H 4.5-5.6 % Medical Emergencies . Who to Call and When: Medical Emergencies: If at any time you feel your situation is an emergency, please call 911 immediately. . Non-Emergent Contact Non-Emergency issues call your: Primary Care Provider . "Provider Documentation" section prepared by Otis Hernandez. . [employer] Recommendations Line As[employer]er [employer] Recommendations: Subjective: Patient reports she is doing well after her back surgery. Denies acute pain. Physical Exam General: no acute distress, sitting in chair Back: able to lean forward on exam, there is a MAGALI drain collecting blood Lungs: CTABL, no wheezing Heart: heart rate and rhythm sounds regular Abdomen: soft, nontende,r + bowel sounds Extremities: no edema, able to raise both legs on her own power while sitting in chair. Line As[employer]er [employer] recommendations Patient with severe spinal stenosis s/p : Removal posterior segmental instrumentation L4-5 L5-S1. #2 expiration of fusion L4-5 L5-S1. #3 lumbar decompression medial facetectomies foraminotomies L3-4. #4 posterior spinal fusion L3-4. #5 placement of posterior instrumentation L3-4. #6 placement of locally harvested morselized autograft in the posterior lateral gutters. #7 placement of infuse collagen sponge combined with mass graft and ostial amp in the posterior lateral gutters. -Prior to surgery, patient had been on Coumadin at home for anticoagulation because of atrial fibrillation. Patient did stop taking coumadin during the days leading to the surgery. Would recommend that coumadin be restarted after MAGALI drain is removed and when orthopedics service deems that patient will be a low bleeding risk post-op. -Continue metoprolol for heart rate control -HTN history: Continue hctz/losartan -HLD: Cont statin -DM II: continue insulin for now. Restart home oral agents when near time for discharge -mild hyponatremia. outpatient baseline labs of serum sodium 133. in the hospital the serum sodium is 130 and then 129. recommend monitoring serum sodium levels for now. adding serum and urine osmolality labs DVT ppx as per orthopedics, restart coumadin later as per orthopedics
--- NOTE | 2018-02-20 14:22 | Progress Note ---
Progress Note Date of Service Feb 20, 2018. Progress Note Patient's back pain is controlled. Leg symptoms are markedly improved. Vital signs are stable. On exam she is in the chair at the bedside. She is excellent strength testing. She appears comfortable. Assessment status post lumbar decompression fusion. Plan at this time will continue physical therapy advance her bowel regimen anticipate home the next few days with home health.
[2018-02-20 15:07] VITALS: BP 128/72; PULSE 76; TEMP 36.7; O2SAT 95
[2018-02-20] MEDS: SIMVASTATIN 40 MG TAB PO SCH (21:02)
[2018-02-20] MEDS: DOCUSATE SODIUM/SENNA 50/8.6MG TAB PO SCH (21:02)
[2018-02-20] MEDS: LOSARTAN POTASSIUM 50 MG TAB PO SCH (21:03)
[2018-02-20] MEDS: HYDROCHLOROTHIAZIDE 25 MG TAB PO SCH (21:04)
[2018-02-20 22:58] VITALS: BP 143/84; PULSE 72; TEMP 36.9; O2SAT 95
[2018-02-21] MEDS: OXYCODONE HCL IR 5 MG TAB (IMMEDIATE RELEASE) PO PRN ×3 (03:38→18:14)
[2018-02-21] MEDS: POLYETHYLENE (MIRALAX) 17 GM PACK PO SCH ×3 (05:57→17:40)
[2018-02-21 07:07] VITALS: BP 107/66; PULSE 103; TEMP 37.8; O2SAT 96
[2018-02-21 07:45] VITALS: O2SAT 96
[2018-02-21] MEDS ORDERED: KETOROLAC TROMETHAMINE 15 MG/ML VIAL IV PRN (08:00)
[2018-02-21] MEDS ORDERED: KETOROLAC TROMETHAMINE 15 MG/ML VIAL IV. SCH (08:30)
[2018-02-21] MEDS: MAGNESIUM OXIDE 400 MG TAB PO SCH ×2 (08:44→21:04)
[2018-02-21] MEDS: PANTOprazole SOD 40 MG TAB PO SCH ×2 (08:45→21:04)
[2018-02-21] MEDS: METOPROLOL SUCC 50MG EXT REL TAB PO SCH (08:45)
[2018-02-21] MEDS: GABAPENTIN 300 MG CAP PO SCH ×2 (08:45→21:04)
[2018-02-21] MEDS: ASPIRIN 81 MG ECTAB PO SCH (08:46)
[2018-02-21] MEDS: INSULIN GLARGINE SOLOSTAR 100 UNITS/ML 3 ML PEN SC SCH ×2 (09:00→21:07)
[2018-02-21] MEDS: INSULIN ASPART 100 UNITS/ML 3 ML PEN SC SCH ×4 (09:01→21:08)
--- NOTE | 2018-02-21 10:24 | Progress Note ---
Progress Note Date of Service Feb 21, 2018. Progress Note Patient's mostly complaining of back pain. Again her leg symptoms are markedly improved. She is ambulating with assistance. On exam she is good strength testing. Assessment status post lumbar decompression fusion. Plan at this time we will add Toradol to her pain medications hopefully this will help with her lumbar soreness. We will continue to advance physical therapy as tolerated.
[2018-02-21 11:40] VITALS: TEMP 36.3
[2018-02-21 15:05] VITALS: BP 144/82; PULSE 93; TEMP 36.5; O2SAT 97
[2018-02-21] MEDS: SODIUM CHLORIDE 0.9% 1000ML 1,000 ML IV SCH (17:39)
--- NOTE | 2018-02-21 17:53 | Progress Note ---
Progress Note Date of Service Feb 21, 2018. Progress Note Subjective: Patient reports she is doing well after her back surgery. Denies acute pain. Physical Exam General: no acute distress, sitting in chair Back: able to lean forward on exam, there is a MAGALI drain collecting blood Lungs: CTABL, no wheezing Heart: heart rate and rhythm sounds regular Abdomen: soft, nontende,r + bowel sounds Extremities: no edema, able to raise both legs on her own power while sitting in chair. Hospitalist Phosphatic Fertilizer Supervisor recommendations Patient with severe spinal stenosis s/p : Removal posterior segmental instrumentation L4-5 L5-S1. #2 expiration of fusion L4-5 L5-S1. #3 lumbar decompression medial facetectomies foraminotomies L3-4. #4 posterior spinal fusion L3-4. #5 placement of posterior instrumentation L3-4. #6 placement of locally harvested morselized autograft in the posterior lateral gutters. #7 placement of infuse collagen sponge combined with mass graft and ostial amp in the posterior lateral gutters. -Prior to surgery, patient had been on Coumadin at home for anticoagulation because of atrial fibrillation. Patient did stop taking coumadin during the days leading to the surgery. Would recommend that coumadin be restarted after MAGALI drain is removed and when orthopedics service deems that patient will be a low bleeding risk post-op. -Continue metoprolol for heart rate control -HTN history: Continue hctz/losartan -HLD: Cont statin -DM II: continue insulin for now. Restart home oral agents when near time for discharge -mild hyponatremia. outpatient baseline labs of serum sodium 133. in the hospital the serum sodium is 130 and then 129 on 02/20/18. Serum and urine osmolality labs from 02/20/18 reviewed. No labs drawn today. Start IV normal saline 75 cc/hr for now. send comprehensive metabolic panel tomorrow AM -MAGALI drain still in place. send CBC tomorrow AM DVT ppx as per orthopedics, restart coumadin later as per orthopedics
[2018-02-21 21:00] VITALS: BP 157/75; PULSE 99
[2018-02-21] MEDS: DOCUSATE SODIUM/SENNA 50/8.6MG TAB PO SCH (21:00)
[2018-02-21] MEDS: SIMVASTATIN 40 MG TAB PO SCH (21:04)
[2018-02-21] MEDS: HYDROCHLOROTHIAZIDE 25 MG TAB PO SCH (21:04)
[2018-02-21] MEDS: LOSARTAN POTASSIUM 50 MG TAB PO SCH (21:05)
[2018-02-21] MEDS ORDERED: NURSING VERBAL MED ORDER ONE (22:00)
[2018-02-21 23:43] VITALS: BP 153/118; PULSE 94; TEMP 36.6; O2SAT 96
[2018-02-22] MEDS: OXYCODONE HCL IR 5 MG TAB (IMMEDIATE RELEASE) PO PRN ×3 (02:15→16:05)
[2018-02-22 03:50] VITALS: BP 115/66
[2018-02-22] MEDS: SODIUM CHLORIDE 0.9% 1000ML 1,000 ML IV SCH (05:07)
[2018-02-22 06:29] LABS: BASO % 0.1 %; BASO ABS # 0.01 K/uL (0-0.2); EOS ABS # 0.07 K/uL (0-0.5); HEMATOCRIT 28.2 % (37-47); HEMOGLOBIN 9.9 g/dL (12.0-16.0); IG# 0.02 K/uL (0.00-0.02); LYMPH % 20.8 %; LYMPH ABS # 1.51 K/uL (1.2-3.4); MEAN CELL VOLUME 90.7 fL (80-100); MEAN CORPUSCULAR HEMOGLOBIN 31.8 pg (25-34); MEAN CORPUSCULAR HGB CONC 35.1 g/dl (32-36); MEAN PLATELET VOLUME 9.5 fL (7.4-10.4); MONO % 12.5 %; MONO ABS # 0.91 K/uL (0.11-0.59); NEUT % 65.3 %; NEUT ABS # 4.75 K/uL (1.4-6.5); PLATELET COUNT 256 K/uL (130-400); RED CELL DISTRIBUTION WIDTH CV 12.9 % (11.5-14.5); RED CELL DISTRIBUTION WIDTH SD 42.7 fL (36.4-46.3); WHITE BLOOD COUNT 7.27 K/uL (4.8-10.8)
[2018-02-22 07:05] LABS: ALBUMIN 2.4 gm/dl (3.4-5.0); CALCIUM 7.8 mg/dl (8.5-10.1); CREATININE 0.67 mg/dl (0.60-1.20); POTASSIUM 3.5 mmol/L (3.5-5.1)
[2018-02-22 07:07] LABS: TOTAL PROTEIN 5.6 gm/dl (6.4-8.2)
[2018-02-22 07:45] VITALS: BP 146/80; PULSE 88; TEMP 36.8; O2SAT 94
[2018-02-22 08:22] VITALS: O2SAT 94
[2018-02-22] MEDS: INSULIN GLARGINE SOLOSTAR 100 UNITS/ML 3 ML PEN SC SCH ×2 (08:32→20:41)
[2018-02-22] MEDS: INSULIN ASPART 100 UNITS/ML 3 ML PEN SC SCH ×4 (08:40→20:40)
--- NOTE | 2018-02-22 08:43 | Progress Note ---
Progress Note Date of Service Feb 22, 2018. Progress Note Subjective: Patient seen sitting in her chair. Denies pain or lightheadedness Physical Exam General: no acute distress, sitting in chair Back: able to lean forward on exam, there is a MAGALI drain collecting blood Lungs: CTABL, no wheezing Heart: heart rate and rhythm sounds regular Abdomen: soft, nontender, + bowel sounds Extremities: no edema Hospitalist District Wildlife Manager recommendations Patient with severe spinal stenosis s/p : Removal posterior segmental instrumentation L4-5 L5-S1. #2 expiration of fusion L4-5 L5-S1. #3 lumbar decompression medial facetectomies foraminotomies L3-4. #4 posterior spinal fusion L3-4. #5 placement of posterior instrumentation L3-4. #6 placement of locally harvested morselized autograft in the posterior lateral gutters. #7 placement of infuse collagen sponge combined with mass graft and ostial amp in the posterior lateral gutters. -Prior to surgery, patient had been on Coumadin at home for anticoagulation because of atrial fibrillation. Patient did stop taking coumadin during the days leading to the surgery. Would recommend that coumadin be restarted after MAGALI drain is removed and when orthopedics service deems that patient will be a low bleeding risk post-op. -Continue metoprolol for heart rate control -HTN history: Continue hctz/losartan -HLD: Cont statin -DM II: continue insulin for now. Restart home oral agents when near time for discharge -mild hyponatremia. outpatient baseline labs of serum sodium 133. in the hospital the serum sodium is 130 and then 129 on 02/20/18. Serum and urine osmolality labs from 02/20/18 reviewed. serum sodium labs drawn today 131 after IV normal saline 75 cc/hr started yesterday evening. IV fluids now stopped -MAGALI drain still in place and serosanguineous fluid present. CBC with Hgb 11 on and Hgb 9.9 today. No need for blood transfusions at this time DVT ppx as per orthopedics, restart coumadin later as per orthopedics
[2018-02-22] MEDS: ASPIRIN 81 MG ECTAB PO SCH (08:53)
[2018-02-22] MEDS: MAGNESIUM OXIDE 400 MG TAB PO SCH ×2 (08:54→20:30)
[2018-02-22] MEDS: GABAPENTIN 300 MG CAP PO SCH ×2 (08:54→20:30)
[2018-02-22] MEDS: PANTOprazole SOD 40 MG TAB PO SCH ×2 (08:55→20:30)
[2018-02-22] MEDS: METOPROLOL SUCC 50MG EXT REL TAB PO SCH (08:56)
--- NOTE | 2018-02-22 11:53 | Clinical Documentation Query ---
DUNCAN Catalan : CLINICAL DOCUMENTATION QUERY Patient is a 78 year old female, POD #3 from posterior lumbar decompression and instrumented fusion. Preoperative H&H was 13.4 g/dl and 39.1%. This a.m. (02/22), values are 9.9 g/dl and 28.2%. Total blood loss to date of 895 ml's. Additionally, net I/O is positive for 4 liters. No daily weights performed to confirm/refute this finding. She is being monitored with serial hematology and I/O including hemovac outputs. As appropriate, consider documentation as suggested below. Thank you. In your clinical opinion is this patient being managed for: ( ) Acute blood loss and hemodilutional anemia ( ) Not Agree ( ) Other explanation of clinical findings (Please Explain) ( x ) Unable to determine (Please Define) ( ) Need to Discuss The medical record reflects the following clinical findings, treatment, and risk factors. Clinical Indicators: As above Treatment: She is being monitored with serial hematology and I/O including hemovac outputs Risk Factors: Acute perioperative blood loss and IVF administration. Please clarify and document your clinical opinion in the progress notes and discharge summary. Terms such as "probable", "suspected", "likely", "questionable", "possible", or "still to be ruled out" are acceptable. IF IN AGREEMENT, YOU MUST DOCUMENT ABOVE DIAGNOSTIC STATEMENT IN DAILY PROGRESS NOTES AND DISCHARGE SUMMARY. This document is not part of the patient's record. Thank You, Kamari Munoz, COLEMAN [phone]
--- NOTE | 2018-02-22 13:18 | Progress Note ---
Progress Note Date of Service Feb 22, 2018. Progress Note Patient's pain is controll she is ambulating better today. General leg symptoms markedly improved. On exam she is good strength testing. Assessment status post lumbar decompression fusion per plan at this time we will change her dressing today and anticipate discharge home tomorrow.
[2018-02-22 14:54] VITALS: BP 136/79; PULSE 92; TEMP 36.3; O2SAT 98
[2018-02-22] MEDS: HYDROCHLOROTHIAZIDE 25 MG TAB PO SCH (20:30)
[2018-02-22] MEDS: LOSARTAN POTASSIUM 50 MG TAB PO SCH (20:30)
[2018-02-22] MEDS: SIMVASTATIN 40 MG TAB PO SCH (20:30)
[2018-02-22] MEDS: DOCUSATE SODIUM/SENNA 50/8.6MG TAB PO SCH (20:31)
[2018-02-22 22:50] VITALS: BP 139/76; PULSE 89; TEMP 37.9; O2SAT 96
[2018-02-23 00:22] VITALS: TEMP 37
[2018-02-23] MEDS: OXYCODONE HCL IR 5 MG TAB (IMMEDIATE RELEASE) PO PRN (04:35)
[2018-02-23 07:26] VITALS: BP 148/82; PULSE 103; TEMP 36.4; O2SAT 94
[2018-02-23] MEDS: PANTOprazole SOD 40 MG TAB PO SCH (09:17)
[2018-02-23] MEDS: GABAPENTIN 300 MG CAP PO SCH (09:17)
[2018-02-23] MEDS: ASPIRIN 81 MG ECTAB PO SCH (09:17)
[2018-02-23] MEDS: METOPROLOL SUCC 50MG EXT REL TAB PO SCH (09:18)
[2018-02-23] MEDS: INSULIN ASPART 100 UNITS/ML 3 ML PEN SC SCH ×2 (09:21→12:57)
[2018-02-23] MEDS: INSULIN GLARGINE SOLOSTAR 100 UNITS/ML 3 ML PEN SC SCH (09:22)
[2018-02-23] MEDS: MAGNESIUM OXIDE 400 MG TAB PO SCH (09:27)
[2018-02-23 10:07] VITALS: BP 148/82; PULSE 103; TEMP 36.4; O2SAT 94
--- NOTE | 2018-02-23 10:21 | Discharge Summary ---
Orthopedic Discharge Summary Admission Date/Reason Feb 19, 2018 at 10:00 Spinal Stenosis. Discharge Date/Disposition Feb 23, 2018 Home with services Diagnosis Principal Diagnosis: Lumbar spinal stenosis Admission Physical Exam As per Admitting History & Physical. Hospital Course Patient underwent lumbar decompression fusion tolerated this well was taken to the orthopedic floor postoperatively. Postop day #1 she was up and ambulatory progress through postop day #2 and 3 was subsequently discharged home with home health. Discharge orders and instructions can be found in the chart for further review. Discharge Instructions Please refer to the electronic Patient Visit Report (Discharge Instructions) for additional information.
== END 2018-02-23 13:46 | disposition home health service (06) | DRG 460 ==
LOC: C.ACU 08:33 → C.3E 10:00 → ENRESERV 12:45
PROVIDERS: ADMIT Orthopaedic Surgery Orthopaedic Surgery of the Spine; ATTEND Orthopaedic Surgery Orthopaedic Surgery of the Spine
PROC: 0SP304Z Removal of Internal Fixation Device from Lumbosacral Joint, Open Approach (ICD-10-PCS; principal; 2018-02-19 10:15)
PROC: 0SP004Z Removal of Internal Fixation Device from Lumbar Vertebral Joint, Open Approach (ICD-10-PCS; principal; 2018-02-19 10:15)
PROC: 00UT0JZ Supplement Spinal Meninges with Synthetic Substitute, Open Approach (ICD-10-PCS; principal; 2018-02-19 10:15)
PROC: 0SG0071 Fusion of Lumbar Vertebral Joint with Autologous Tissue Substitute, Posterior Approach, Posterior Column, Open Approach (ICD-10-PCS; principal; 2018-02-19 10:15)
DX: M48.062 Spinal stenosis, lumbar region with neurogenic claudication (principal); E87.1 Hypo-osmolality and hyponatremia; I48.2 Chronic atrial fibrillation; E11.9 Type 2 diabetes mellitus without complications; E78.5 Hyperlipidemia, unspecified; I10 Essential (primary) hypertension; Z79.01 Long term (current) use of anticoagulants; Z79.82 Long term (current) use of aspirin; Z79.84 Long term (current) use of oral hypoglycemic drugs; Z79.899 Other long term (current) drug therapy; Z88.0 Allergy status to penicillin; Z88.5 Allergy status to narcotic agent; Z98.1 Arthrodesis status

== ENCOUNTER 2019-05-30 21:51 | Inpatient (IN) ==
[2019-05-30] MEDS ORDERED: ONDANSETRON INJ 2 MG/ML 2 ML VIAL IV STA (23:01)
[2019-05-30 23:13] LABS: Eosinophils # (auto) 0.13 K/uL (0-0.5); Eosinophils % (auto) 3.8 %; Hematocrit (blood only) 28.8 % (37-47); Hemoglobin 10.1 g/dL (12.0-16.0); Lymphocytes # (auto) 0.66 K/uL (1.2-3.4); Lymphocytes % (auto) 19.2 %; Mean Corpuscular Hgb Conc 35.1 g/dL (32-36); Mean Corpuscular Volume 88.9 fL (80-100); Mean Platelet Volume 11.4 fL (7.4-10.4); Monocytes # (auto) 0.01 K/uL (0.11-0.59); Monocytes % (auto) 0.3 %; Neutrophils # (auto) 2.63 K/uL (1.4-6.5); Neutrophils % (auto) 76.7 %; Platelet Count 163 K/uL (130-400); RDW Coefficient of Variation 12.2 % (11.5-14.5); RDW Standard Deviation 39.4 fL (36.4-46.3); Red Blood Count 3.24 M/uL (4.2-5.4); White Blood Count 3.43 K/uL (4.8-10.8)
[2019-05-30] MEDS ORDERED: SODIUM CHLORIDE 0.9% 1000ML 2,000 ML IV SCH (23:15)
[2019-05-30 23:22] LABS: Alanine Aminotransferase 55 U/L (12-78); Albumin Level 2.8 gm/dl (3.4-5.0); Aspartate Aminotransferase 27 U/L (15-37); BUN Creatinine Ratio 32.7 (10-20); Blood Urea Nitrogen 19 mg/dl (7-18); Calcium 8.3 mg/dl (8.5-10.1); Carbon Dioxide 25 mmol/L (21-32); Chloride 97 mmol/L (98-107); Est GFR (African American) 102.3; Est GFR (Non-African American) 88.3; Glucose 240 mg/dl (70-99); Potassium 3.9 mmol/L (3.5-5.1); Sodium 131 mmol/L (136-145)
[2019-05-30 23:33] LABS: Albumin Globulin Ratio 0.8 (0.9-2); Alkaline Phosphatase 328 U/L (45-117); Globulin 3.4 gm/dl (2.5-4.0); Total Protein 6.2 gm/dl (6.4-8.2); Troponin I < 0.015 ng/ml (0-0.045)
[2019-05-30 23:45] LABS: T4 Free Thyroxine 1.71 ng/dl (0.8-1.6)
[2019-05-31] MEDS ORDERED: OPTIRAY 320 125ml IV PRN
[2019-05-31] MEDS ORDERED: POTASSIUM CHLORIDE 20 MEQ TABCR PO STA (00:46)
[2019-05-31 01:13] LABS: Appearance Urine Clear (Clear); Bacteria Urine Automated 1+ (Negative); Bilirubin Urine Negative (Negative); Color Urine Yellow; Glucose Urine UA 2+ (Negative); Ketones Urine Trace (Negative); Leukocyte Esterase Urine 2+ (Negative); Nitrite Urine Negative (Negative); Protein Urine Negative (Negative); Specific Gravity Urine 1.037 (1.000-1.030); Urobilinogen Urine Negative (Negative); WBC Urine Automated >30 /hpf (0-5)
[2019-05-31] MEDS ORDERED: PROMETHAZINE HCL 12.5 MG in SODIUM CHLORIDE 0.9% 50 ML IV PRN ×2 (01:34→03:47)
[2019-05-31] MEDS ORDERED: KETOROLAC TROMETHAMINE 15 MG/ML VIAL IV STA (01:35)
--- NOTE | 2019-05-31 01:38 | History & Physical Report ---
Date of Service May 31, 2019 Assessment & Plan (1) Diarrhea: Likely secondary to chemotherapy regimen, history pancreatic cancer Rule out C. difficile A. fib on Coumadin, rate controlled, INR slightly subtherapeutic Abnormal EKG, diffuse T wave inversions signs chest pain/sob complaints, unclear significance hypertension, stable Chronic anemia, hemoglobin stable from last outpatient draw DM 2 on oral medications, suboptimal control as of recent outpatient hemoglobin A1c of 9 last May 2018 Abnormal TFTs, possible hyperthyroidism chronic hyponatremia skin cancer as per records OBS Medical telemetry for abnormal EKG stool. Cdifficile IVF ISS BG goal 1 40-1 80, basal Lantus to attain goal, carb count coverage Check T3, outpatient Endocrinology consultation for possible new onset hyperthyroidism PT OT eval DVT prophylaxis Coumadin INR goal between 2 and 3 Full code History of Present Illness Chief Complaint: Diarrhea Primary Care Provider: Jes Soler, History obtained from patient, family, and records. Medical history significant for pancreatic cancer ongoing chemotherapy, A. fib on Coumadin, hypertension, DM 2 on oral medications, chronic hyponatremia, skin cancer as per records. Recent confinement February 2018 for back surgery under Orthopedics service. Patient had her second chemotherapy session a few days ago. Nonbloody loose stools subsequently noted with abdominal cramping. No chest pain, no S OB. Appetite not too good. Patient feels very tired. 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 Allergies Allergy/AdvReac Type Severity Reaction Status Date / Time Penicillins Allergy Intermediate Hives Verified 05/31/19 00:33 morphine AdvReac Intermediate HALLUCINATE Verified 05/31/19 00:33 S meperidine AdvReac Mild "nausea Verified 05/31/19 00:33 and vomiting" Home Medications Home Medications Medication Instructions Recorded Confirmed Type aspirin [Aspir-81] 81 mg PO QAM 10/16/18 05/31/19 History cholecalciferol (vitamin D3) 1,000 unit PO QAM 10/16/18 05/31/19 History [Vitamin D3] gabapentin 300 mg PO BID 10/16/18 05/31/19 History glimepiride 2 mg PO QPM 10/16/18 05/31/19 History losartan 50 mg PO QAM 10/16/18 05/31/19 History metformin 500 mg PO BID 10/16/18 05/31/19 History metoprolol succinate 75 mg PO QAM 10/16/18 05/31/19 History warfarin 2.5 mg PO DAILY 10/16/18 05/31/19 History Slow-Mag 143 mg PO TID 03/30/19 05/31/19 History amlodipine 5 mg PO QAM 03/30/19 05/31/19 History nitroglycerin [Nitrostat] 0.4 mg SUBLINGUAL UD 03/30/19 05/31/19 History oxycodone 5 mg PO Q6H PRN #10 tab 03/30/19 05/31/19 Rx ranitidine HCl 150 mg PO BID 03/30/19 05/31/19 History rosuvastatin 20 mg PO QAM 03/30/19 05/31/19 History multivitamin 1 tab PO DAILY 05/14/19 05/31/19 History omeprazole 40 mg PO DAILY 05/31/19 05/31/19 History ondansetron HCl 8 mg PO Q8 PRN 05/31/19 05/31/19 History prochlorperazine maleate 10 mg PO Q6 PRN 05/31/19 05/31/19 History Past Med/Surg History Medical History Atrial fibrillation ON WARFARIN Lumbar stenosis with neurogenic claudication HTN (hypertension) GERD (gastroesophageal reflux disease) HLD (hyperlipidemia) Osteoarthritis Osteoporosis Diabetes mellitus, type II NIDDM Pancreas carcinoma RECENT DIAGNOSIS; REASON FOR UPCOMING PROCEDURE Skin cancer Spinal stenosis Surgical History History of difficult intubation Lumbar hardware removal, L3-L4 decompression fusion: 02/19/18: Glidescope#3, ETT 7.0 at [facility] Fusion of spine LUMBAR AND REVISION (2 SURGERIES) History of biopsy PANCREAS History of cataract surgery History of colonoscopy History of hysterectomy History of tonsillectomy History of total knee replacement LEFT Family History Other Family history non-contributory Social History Preferred Language: Maori Communication Ability: Effective 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 Beliefs That Will Affect Care: None Current Living Situation: Spouse Other Information That Helps Us Care for You: No Feels Safe at Home: Yes Safety Concerns: Feels Safe At This Time Smoking Status: Unknown if ever smoked Hx Alcohol Use: No Hx Substance Use: No Review of Systems Review of Systems: As per HPI, all 10 systems reviewed, all other ROS negative Physical Exam Physical Exam: GENERAL: Slightly uncomfortable, no respiratory distress, lying on the left lateral decubitus position covered in blankets SKIN: Pallor , warm HEENT: pale palpebral conjunctivae, no ptosis, dry buccal mucosa NECK : Supple, no tenderness CHEST : Decreased breath sounds , no tenderness HEART : Irregular , tachycardic, systolic murmur ABDOMEN: Some distention, hypogastric tenderness EXTREMITIES : No LE swelling/tenderness, no other conspicuous deformities noted NEUROLOGIC : Coherent, no facial asymmetry, no other gross focality Results & Data Vital Signs (Past 12 Hours) Vital Signs Temp Pulse Pulse Resp BP BP Pulse Ox 05/31/19 01:00 89 18 120/78 97 05/30/19 23:52 89 18 138/72 98 05/30/19 21:57 36.3 C L 115 H 20 110/63 89 L Laboratory Results Laboratory Results WBC 3.43 K/uL (4.8-10.8) L 05/30/19 22:43 RBC 3.24 M/uL (4.2-5.4) L 05/30/19 22:43 Hgb 10.1 g/dL (12.0-16.0) L 05/30/19 22:43 Hct 28.8 % (37-47) L 05/30/19 22:43 MCV 88.9 fL (80-100) 05/30/19 22:43 MCH 31.2 pg (25-34) 05/30/19 22:43 MCHC 35.1 g/dL (32-36) 05/30/19 22:43 RDW Std Deviation 39.4 fL (36.4-46.3) 05/30/19 22:43 RDW Coeff of Sukhwinder 12.2 % (11.5-14.5) 05/30/19 22:43 Plt Count 163 K/uL (130-400) 05/30/19 22:43 MPV 11.4 fL (7.4-10.4) H 05/30/19 22:43 Immature Gran % (Auto) 0.0 % 05/30/19 22:43 Neut % (Auto) 76.7 % 05/30/19 22:43 Lymph % (Auto) 19.2 % 05/30/19 22:43 [place] % (Auto) 0.3 % 05/30/19 22:43 Eos % (Auto) 3.8 % 05/30/19 22:43 Baso % (Auto) 0.0 % 05/30/19 22:43 Immature Gran # (Auto) 0.00 K/uL (0.00-0.02) 05/30/19 22:43 Neut # (Auto) 2.63 K/uL (1.4-6.5) 05/30/19 22:43 Lymph # (Auto) 0.66 K/uL (1.2-3.4) L 05/30/19 22:43 [place] # (Auto) 0.01 K/uL (0.11-0.59) L 05/30/19 22:43 Eos # (Auto) 0.13 K/uL (0-0.5) 05/30/19 22:43 Baso # (Auto) 0.00 K/uL (0-0.2) 05/30/19 22:43 Sodium 131 mmol/L (136-145) L 05/30/19 22:43 Potassium 3.9 mmol/L (3.5-5.1) 05/30/19 22:43 Chloride 97 mmol/L (98-107) L 05/30/19 22:43 Carbon Dioxide 25 mmol/L (21-32) 05/30/19 22:43 Anion Gap 9.0 (3-11) 05/30/19 22:43 BUN 19 mg/dl (7-18) H 05/30/19 22:43 Creatinine 0.58 mg/dl (0.6-1.2) L 05/30/19 22:43 Est Cr Clr Drug Dosing Not Reportable 05/30/19 22:43 Est GFR ( Amer) 102.3 05/30/19 22:43 Est GFR (Non-Af Amer) 88.3 05/30/19 22:43 BUN/Creatinine Ratio 32.7 (10-20) H 05/30/19 22:43 Glucose 240 mg/dl (70-99) H 05/30/19 22:43 Calcium 8.3 mg/dl (8.5-10.1) L 05/30/19 22:43 Total Bilirubin 1.0 mg/dl (0.2-1) 05/30/19 22:43 AST 27 U/L (15-37) 05/30/19 22:43 ALT 55 U/L (12-78) 05/30/19 22:43 Alkaline Phosphatase 328 U/L (45-117) H 05/30/19 22:43 Troponin I < 0.015 ng/ml (0-0.045) 05/30/19 22:43 Total Protein 6.2 gm/dl (6.4-8.2) L 05/30/19 22:43 Albumin 2.8 gm/dl (3.4-5.0) L 05/30/19 22:43 Globulin 3.4 gm/dl (2.5-4.0) 05/30/19 22:43 Albumin/Globulin Ratio 0.8 (0.9-2) L 05/30/19 22:43 TSH 0.071 uIu/ml (0.300-4.500) L 05/30/19 22:43 Free T4 1.71 ng/dl (0.8-1.6) H 05/30/19 22:43 Urine Color Yellow 05/31/19 00:58 Urine Appearance Clear (Clear) 05/31/19 00:58 Urine pH 5.0 (4.5-7.5) 05/31/19 00:58 Ur Specific [place] 1.037 (1.000-1.030) H 05/31/19 00:58 Urine Protein Negative (Negative) 05/31/19 00:58 Urine Glucose (UA) 2+ (Negative) H 05/31/19 00:58 Urine Ketones Trace (Negative) H 05/31/19 00:58 Urine Blood Trace (Negative) H 05/31/19 00:58 Urine Nitrite Negative (Negative) 05/31/19 00:58 Urine Bilirubin Negative (Negative) 05/31/19 00:58 Urine Urobilinogen Negative (Negative) 05/31/19 00:58 Ur Leukocyte Esterase 2+ (Negative) H 05/31/19 00:58 Urine WBC (Auto) >30 /hpf (0-5) H 05/31/19 00:58 Urine RBC (Auto) 5-10 /hpf (0-4) H 05/31/19 00:58 U Hyaline Cast (Auto) 1-5 /lpf (0-5) 05/31/19 00:58 U Epithel Cells (Auto) 10-20 /lpf (0-5) H 05/31/19 00:58 Urine Bacteria (Auto) 1+ (Negative) H 05/31/19 00:58 Diagnostic Findings CTA initial read no pleural embolism CT abdomen pelvis initial read Small hiatal hernia, pancreatic head mass measuring 4.5 cm. Pancreatic ductal dilatation. Cholecystectomy, biliary duct dilatation, hysterectomy. Unremarkable appendix. Small mesenteric nodes/haziness. Spinal hardware EKG as per my interpretation rate 100, A. fib, diffuse T wave inversion
[2019-05-31 01:48] LABS: Magnesium 1.8 mg/dl (1.8-2.4)
--- NOTE | 2019-05-31 01:49 | Emergency Department Note ---
Entered by Carlos Robledo acting as a scribe for Miguelito Lim DO History of Present Illness General Chief complaint: Dehydration Stated complaint: DIARRHEA, DEHYDRATED Source: patient Limitations: no limitations History of Present Illness Onset (ago): hour(s) (today) Location: buttocks Pain Consistency: + intermittent Maximum Pain Intensity: 4 Quality: + other (uncontrollable) Associated symptoms: + denies other symptoms (abdominal pain); no nausea/vomiting Treatments prior to arrival: other (warfarin) The patient is a 79 white female w/ PMHx A-Fib, HTN, HLD, diabetes, pancreas carcinoma, and arthritis who presents to the ED w/ CC of intermittent diarrhea beginning today. The patient states she started chemotherapy 3 days ago. The patient's daughter states the patient had a sodium level of 128 3 days ago and 132 yesterday. The patient states she has had uncontrollable diarrhea today and has been having it a couple times a hour. The patient's daughter states the patient takes Warfarin. The patient denies abdominal pain, nausea, and vomiting. The patient notes she has a back ache but states that is unchanged. The patient states she follows with Dr. Gomes. Home Medications Home Medications Medication Instructions Recorded Confirmed Type aspirin [Aspir-81] 81 mg PO QAM 10/16/18 05/31/19 History cholecalciferol (vitamin D3) 1,000 unit PO QAM 10/16/18 05/31/19 History [Vitamin D3] gabapentin 300 mg PO BID 10/16/18 05/31/19 History glimepiride 2 mg PO QPM 10/16/18 05/31/19 History losartan 50 mg PO QAM 10/16/18 05/31/19 History metformin 500 mg PO BID 10/16/18 05/31/19 History metoprolol succinate 75 mg PO QAM 10/16/18 05/31/19 History warfarin 2.5 mg PO DAILY 10/16/18 05/31/19 History Slow-Mag 143 mg PO TID 03/30/19 05/31/19 History amlodipine 5 mg PO QAM 03/30/19 05/31/19 History nitroglycerin [Nitrostat] 0.4 mg SUBLINGUAL UD 03/30/19 05/31/19 History oxycodone 5 mg PO Q6H PRN #10 tab 03/30/19 05/31/19 Rx ranitidine HCl 150 mg PO BID 03/30/19 05/31/19 History rosuvastatin 20 mg PO QAM 03/30/19 05/31/19 History multivitamin 1 tab PO DAILY 05/14/19 05/31/19 History omeprazole 40 mg PO DAILY 05/31/19 05/31/19 History ondansetron HCl 8 mg PO Q8 PRN 05/31/19 05/31/19 History prochlorperazine maleate 10 mg PO Q6 PRN 05/31/19 05/31/19 History Allergies Allergy/AdvReac Type Severity Reaction Status Date / Time Penicillins Allergy Intermediate Hives Verified 05/31/19 00:33 morphine AdvReac Intermediate HALLUCINATE Verified 05/31/19 00:33 S meperidine AdvReac Mild "nausea Verified 05/31/19 00:33 and vomiting" Past Med/Surg History Medical History Atrial fibrillation ON WARFARIN Lumbar stenosis with neurogenic claudication HTN (hypertension) GERD (gastroesophageal reflux disease) HLD (hyperlipidemia) Osteoarthritis Osteoporosis Diabetes mellitus, type II NIDDM Pancreas carcinoma RECENT DIAGNOSIS; REASON FOR UPCOMING PROCEDURE Skin cancer Spinal stenosis Surgical History History of difficult intubation Lumbar hardware removal, L3-L4 decompression fusion: 02/19/18: Glidescope#3, ETT 7.0 at [facility] Fusion of spine LUMBAR AND REVISION (2 SURGERIES) History of biopsy PANCREAS History of cataract surgery History of colonoscopy History of hysterectomy History of tonsillectomy History of total knee replacement LEFT Family History Other Family history non-contributory Social History Preferred Language: Yi Communication Ability: Effective Beliefs That Will Affect Care: None Current Living Situation: Spouse Feels Safe at Home: Yes Smoking Status: Never smoker Second Hand Exposure: No Hx Alcohol Use: No Hx Substance Use: No Review of Systems See HPI for pertinent positives & negatives. and A total of 10 systems reviewed and were otherwise negative Physical Exam Vital Signs Vital Signs - 24 hr 05/30/19 21:57 05/30/19 23:02 05/30/19 23:52 Temperature 36.3 C L Temperature Source Oral Sepsis Recent Fever Within 48 Hours No Sepsis New/Unexplained Change in Mental Status No Sepsis Action Taken by Nursing No Action Required Pulse Rate 115 H Pulse Rate [Left Radial] 89 Respiratory Rate 20 18 Respiratory Effort / Characteristics Non-Labored Respiratory Depth Normal Respiratory Pattern Regular Blood Pressure 110/63 Blood Pressure [Left Arm] 138/72 Blood Pressure Mean 78 Blood Pressure Mean [Left Arm] 94 Blood Pressure Position [Left Arm] Lying Pulse Oximetry 89 L 98 Oxygen Delivery Method Room Air Room Air Room Air 05/31/19 01:00 Temperature Temperature Source Sepsis Recent Fever Within 48 Hours Sepsis New/Unexplained Change in Mental Status Sepsis Action Taken by Nursing Pulse Rate Pulse Rate [Left Radial] 89 Respiratory Rate 18 Respiratory Effort / Characteristics Respiratory Depth Respiratory Pattern Blood Pressure Blood Pressure [Left Arm] 120/78 Blood Pressure Mean Blood Pressure Mean [Left Arm] 92 Blood Pressure Position [Left Arm] Pulse Oximetry 97 Oxygen Delivery Method Room Air GENERAL: alert. Laying in bed. Cachetic. Slightly ill appearing. Disheveled. EYE EXAM: normal conjunctiva, PERRL and EOM's grossly intact OROPHARYNX: no exudate, no erythema, lips, buccal mucosa, and tongue normal and mucous membranes are dry. NECK: supple, no nuchal rigidity, no adenopathy, non-tender LUNGS: Clear to auscultation. Normal chest wall mechanics HEART: no murmurs, S1 normal and S2 normal ABDOMEN: abdomen soft, non-tender, normo-active bowel sounds, no masses, no rebound or guarding. BACK: Back is symmetrical on inspection and there is no deformity, no midline tenderness, no CVA tenderness. SKIN: no rashes and no bruising UPPER EXTREMITIES: upper extremities are grossly normal. LOWER EXTREMITIES: No pitting edema. NEURO EXAM: Normal sensorium, cranial nerves II-XII grossly intact, normal speech, no gross weakness of arms, no gross weakness of legs. Course ED COURSE: Vital signs were reviewed. Vitals are normal. The patients medical record was reviewed The above diagnostic studies were performed and reviewed. ED treatments and interventions as stated above. 2049: The patient was evaluated in room C7. A complete history and physical examination was performed. 0045: [facility] will evaluate the patient for further management. 0050: Upon reevaluation, the patient is getting admitted. I discussed my findings with the patient and she understands and agrees with the treatment plan. Based on the patients age, coexisting illnesses, exam and lab findings the decision to treat as an inpatient was made. The patient remained stable while under my care. The patient will be evaluated for further management. Administered Medications Ioversol (Optiray 320 125ml) 119 ml IV ONCE PRN PRN Reason: Interaction Checking Stop: 06/04/19 00:00 Last Admin: 05/31/19 00:00 Dose: 1 ml Documented by: [id number] Discontinued Medications Sodium Chloride (Nss 1000ml) 2,000 mls @ 999 mls/hr IV .Q2H1M ALBA Stop: 05/31/19 01:15 Last Admin: 05/30/19 23:38 Dose: 999 mls/hr Documented by: [id number] Ondansetron HCl (Zofran) 4 mg IV NOW STA Stop: 05/30/19 23:02 Last Admin: 05/30/19 23:38 Dose: 4 mg Documented by: [id number] Potassium Chloride (Klor-Con M20) 20 meq PO NOW STA Stop: 05/31/19 00:47 Last Admin: 05/31/19 01:44 Dose: 20 meq Documented by: [id number] Medical Decision Making Differential Diagnosis Differential Diagnosis includes but is not limited to dehydration, stroke, anemia, hypoglycemia, hyponatremia, hypernatremia, urinary tract infection, pneumonia, bronchitis, sepsis, gastroenteritis, additional abdominal pathology, metabolic abnormalities and infections. Medical Records Attestation: I reviewed the patient's medical records. Home Medications Current Medication List: was personally reviewed by me Laboratory Data Attestation: I reviewed the patient's lab results. Result diagrams: 05/30/19 22:43 05/30/19 22:43 Lab Results 05/30/19 05/30/19 05/31/19 Range/Units 22:43 22:43 00:58 WBC 3.43 L (4.8-10.8) K/uL RBC 3.24 L (4.2-5.4) M/uL Hgb 10.1 L (12.0-16.0) g/dL Hct 28.8 L (37-47) % MCV 88.9 (80-100) fL MCH 31.2 (25-34) pg MCHC 35.1 (32-36) g/dL RDW Std Deviation 39.4 (36.4-46.3) fL RDW Coeff of Sukhwinder 12.2 (11.5-14.5) % Plt Count 163 (130-400) K/uL MPV 11.4 H (7.4-10.4) fL Immature Gran % (Auto) 0.0 % Neut % (Auto) 76.7 % Lymph % (Auto) 19.2 % [place] % (Auto) 0.3 % Eos % (Auto) 3.8 % Baso % (Auto) 0.0 % Immature Gran # (Auto) 0.00 (0.00-0.02) K/uL Neut # (Auto) 2.63 (1.4-6.5) K/uL Lymph # (Auto) 0.66 L (1.2-3.4) K/uL [place] # (Auto) 0.01 L (0.11-0.59) K/uL Eos # (Auto) 0.13 (0-0.5) K/uL Baso # (Auto) 0.00 (0-0.2) K/uL Sodium 131 L (136-145) mmol/L Potassium 3.9 (3.5-5.1) mmol/L Chloride 97 L (98-107) mmol/L Carbon Dioxide 25 (21-32) mmol/L Anion Gap 9.0 (3-11) BUN 19 H (7-18) mg/dl Creatinine 0.58 L (0.6-1.2) mg/dl Est Cr Clr Drug Dosing Not Reportable Est GFR ( Amer) 102.3 Est GFR (Non-Af Amer) 88.3 BUN/Creatinine Ratio 32.7 H (10-20) Glucose 240 H (70-99) mg/dl Calcium 8.3 L (8.5-10.1) mg/dl Total Bilirubin 1.0 (0.2-1) mg/dl AST 27 (15-37) U/L ALT 55 (12-78) U/L Alkaline Phosphatase 328 H (45-117) U/L Troponin I < 0.015 (0-0.045) ng/ml Total Protein 6.2 L (6.4-8.2) gm/dl Albumin 2.8 L (3.4-5.0) gm/dl Globulin 3.4 (2.5-4.0) gm/dl Albumin/Globulin Ratio 0.8 L (0.9-2) TSH 0.071 L (0.300-4.500) uIu/ml Free T4 1.71 H (0.8-1.6) ng/dl Urine Color Yellow Urine Appearance Clear (Clear) Urine pH 5.0 (4.5-7.5) Ur Specific [place] 1.037 H (1.000-1.030) Urine Protein Negative (Negative) Urine Glucose (UA) 2+ H (Negative) Urine Ketones Trace H (Negative) Urine Blood Trace H (Negative) Urine Nitrite Negative (Negative) Urine Bilirubin Negative (Negative) Urine Urobilinogen Negative (Negative) Ur Leukocyte Esterase 2+ H (Negative) Urine WBC (Auto) >30 H (0-5) /hpf Urine RBC (Auto) 5-10 H (0-4) /hpf U Hyaline Cast (Auto) 1-5 (0-5) /lpf U Epithel Cells (Auto) 10-20 H (0-5) /lpf Urine Bacteria (Auto) 1+ H (Negative) Imaging Data Attestation: I personally reviewed and interpreted this imaging study as follows: My Impression: Chest X-Ray portable AP upright: Port in left chest. No focal infiltrate. No pneumothroax. Radiologist's Impression: Radiology results as stated below per my review and the radiologist's interpretation: CTA CHEST: No pulmonary embolus. No consolidation Port-A-Cath. Small hiatal hernia-thickening in the distal esophagus. Radiologist: Joel Chang M.D. Study ready at 00:02 and initial results transmitted at 00:39 ECG Data Attestation: I personally reviewed and interpreted this ECG as follows: Indication: weakness Rate (beats per minute): 97 Rhythm: atrial fibrillation Findings: + ST depression (anterior and lateral) and + T-wave inversion (septal, anteroir, lateral, and inferior ) Comparison ECG Date: from (10/16/18) Change: the following changes noted (TWI and ST depression in all the leads are new) Blood Pressure Blood Pressure Findings: Normal blood pressure Blood Pressure Disposition: further management by hospitalist SARATH Narrative Patient is a 79-year-old female who presents the ER who is receiving chemo past 2 Tuesdays for weakness associated with persistent diarrhea today. Upon arrival she is found to be slightly hypoxic at 80% on room air. IV was established b lood work was obtained. Labs show mild leukopenia 3.4 thousand. No significant anemia 10. BMP with a sodium of 131. Glucose is slightly elevated 240. TSH was slightly low at 0.071. Troponin was negative. UA was contaminated with multiple epithelial cells. CT PE was performed although she is on Coumadin as she was recently reversed was concerned that she could have gone low which would cause the diffuse ST wave changes in the anterior and lateral leads along associated with T wave inversions. CT was unremarkable. Patient and family were updated bedside. Patient was admitted to the hospitalist for diffuse EKG changes associate with persistent diarrhea and weakness. Family was updated bedside. Did discuss with the hospitalist as well. Impression & Plan Diarrhea, Weakness, Acute electrocardiogram changes, Hypoxia Discharge Plan Visit Data Chief Complaint: Dehydration Stated Complaint: DIARRHEA, DEHYDRATED ED Provider: Miguelito Lim Discharge Problem: Diarrhea, Weakness, Acute electrocardiogram changes, Hypoxia Patient Disposition: Being Evaluated by Hospitalist Forms Stand Alone Forms: [facility], [facility] Prescriptions Prescriptions: No Action warfarin 2.5 mg tablet 2.5 mg PO DAILY RF: 0 aspirin [Aspir-81] 81 mg Tablet,Delayed Release (Dr/Ec) 81 mg PO QAM RF: 0 glimepiride 1 mg tablet 2 mg PO QPM RF: 0 gabapentin 300 mg capsule 300 mg PO BID RF: 0 metoprolol succinate 25 mg tablet extended release 24 hr 75 mg PO QAM RF: 0 losartan 100 mg tablet 50 mg PO QAM RF: 0 metformin 500 mg tablet extended release 24 hr 500 mg PO BID RF: 0 cholecalciferol (vitamin D3) [Vitamin D3] 1,000 unit Capsule 1,000 unit PO QAM RF: 0 amlodipine 5 mg tablet 5 mg PO QAM RF: 0 ranitidine HCl 150 mg tablet 150 mg PO BID RF: 0 nitroglycerin [Nitrostat] 0.4 mg Tablet, Sublingual 0.4 mg sublingual UD RF: 0 rosuvastatin 20 mg tablet 20 mg PO QAM RF: 0 Slow-Mag 71.5 mg tablet,delayed release (DR/EC) 143 mg PO TID RF: 0 oxycodone 5 mg tablet 5 mg PO Q6H PRN (Reason: pain) Qty: 10 RF: 0 omeprazole 40 mg capsule,delayed release(DR/EC) 40 mg PO DAILY RF: 0 ondansetron HCl 8 mg tablet 8 mg PO Q8 PRN (Reason: Nausea) RF: 0 prochlorperazine maleate 10 mg tablet 10 mg PO Q6 PRN (Reason: Nausea) RF: 0 multivitamin Tablet 1 tab PO DAILY RF: 0 Referrals Referrals: Jes Soler, [Primary Care Provider] - The scribe's documentation has been prepared under my direction and personally reviewed by me in its entirety. I confirm that the note above accurately reflects all work, treatment, procedures, and medical decision making performed by me.
[2019-05-31 01:58] LABS: INR 1.8 (0.9-1.1); Prothrombin Time 17.4 Seconds (9.0-12.0)
[2019-05-31] MEDS ORDERED: GLUCOSE 40% GEL 15 GM TUBE PO PRN (03:47)
[2019-05-31] MEDS ORDERED: GLUCAGON FOR INJ 1 MG VIAL SQ PRN (03:47)
[2019-05-31] MEDS ORDERED: SODIUM CHLORIDE 0.9% 1000ML 1,000 ML IV SCH (03:47)
[2019-05-31] MEDS ORDERED: GLUCOSE 10 TABS/TUBE PO PRN (03:47)
[2019-05-31] MEDS ORDERED: NITROGLYCERIN SL 0.4 MG/TAB TAB SL PRN (03:47)
[2019-05-31] MEDS ORDERED: DEXTROSE 50% 50 ML SYRINGE IV PRN (03:47)
[2019-05-31] MEDS ORDERED: INSULIN GLARGINE SOLOSTAR 100 UNITS/ML 3 ML PEN SQ STA (03:47)
[2019-05-31] MEDS ORDERED: NSS + 20MEQ KCL 20 MEQ/1,000 ML BAG IV STA (03:47)
[2019-05-31] MEDS ORDERED: WARFARIN SOD 5 MG TAB PO ONE (04:00)
[2019-05-31] MEDS: INSULIN ASPART 100 UNITS/ML 3 ML PEN SC SCH ×5 (04:17→21:15)
[2019-05-31] MEDS ORDERED: MAGNESIUM SULFATE / D5W 1 GM/100 ML BAG IV ONE (05:01)
--- NOTE | 2019-05-31 05:35 | XRay Report ---
XR chest 1V portable CLINICAL HISTORY: 79 years-old Female presenting with weakness, severe diarrhea. TECHNIQUE: Portable upright AP view of the chest was obtained. COMPARISON: 05/19/[address] from 2014. FINDINGS: Left subclavian Mediport terminates in the lower SVC. Atherosclerosis of the aortic arch. Cardiac luis houette mildly enlarged. Double density noted along the right heart border possibly related to patien t rotation or atrial enlargement. Lungs are hyperinflated. No focal opacity. No pleural effusion or p neumothorax. Osteopenia suspected. Degenerative changes of the thoracic spine. IMPRESSION: 1. Findings suggest emphysema. No focal infiltrate to suggest pneumonia. 2. Cardiomegaly. Electronically signed by: Jim Zamarripa M.D. 05/31/2019 5:33 AM
--- NOTE | 2019-05-31 05:53 | CT Scan Report ---
CT angio chest PE protocol CLINICAL HISTORY: 79 years-old Female presenting with EKG changes, hypoxia, clinical concern for pulm onary embolus. TECHNIQUE: Multidetector CT angiography of the chest was performed after administration of intravenou s contrast. 3-D volumetric and/or maximum intensity projection (MIP) images were subsequently reconst ructed for review. IV contrast: 119 mL of Optiray 320. One or more dose lowering techniques were used consistent with the principles of ALARA (as low as reasonably achievable), including automatic expos ure control, mA or kV adjustment to individual patient size, and/or use of iterative reconstruction. COMPARISON: Noncontrast CT chest from 2015. CT DOSE (mGy.cm): The estimated cumulative dose is 277.16 mGy.cm. FINDINGS: Theatrical Performer topogram: Orthopedic hardware. Cholecystectomy clips also noted. Pulmonary vasculature: The study is adequate for assessment of the pulmonary vascular tree. No filling defect within the pul monary arteries to suggest embolus. Main pulmonary artery is not enlarged. No flattening of the inter ventricular septum. No intracardiac filling defect. Reflux of contrast into the intrahepatic IVC. Remaining chest: Soft tissues: Normal thyroid. Left subclavian Mediport terminates in the lower SVC. No axillary, supr aclavicular, internal mammary, mediastinal, or hilar lymphadenopathy. Atherosclerosis of the aorta. N ormal heart size. Coronary artery calcification. No pericardial or pleural effusion. Small sliding-ty pe hiatal hernia. Lungs and airways: No pneumothorax. Central airways patent. Pulmonary arteries are not significantly enlarged relative to adjacent bronchi. No interlobular septal thickening. No focal infiltrate or nodu le. Musculoskeletal: Degenerative changes of the spine. IMPRESSION: 1. No evidence of pulmonary embolus. No acute intrathoracic pathology. Electronically signed by: Jim Zamarripa M.D. 05/31/2019 5:52 AM
--- NOTE | 2019-05-31 07:08 | CT Scan Report ---
CT abd pelvis wo con CLINICAL HISTORY: 79 years-old Female presenting with generalized abdominal pain, hypoxia. TECHNIQUE: Multidetector CT of the abdomen and pelvis was performed without the use of intravenous co ntrast. IV contrast: None. One or more dose lowering techniques were used consistent with the princip les of ALARA (as low as reasonably achievable), including automatic exposure control, mA or kV adjust ment to individual patient size, and/or use of iterative reconstruction. COMPARISON: 03/30/2019. CT DOSE (mGy.cm): The estimated cumulative dose is 244.53 mGy.cm. FINDINGS: Ampoule Examiner topogram: Orthopedic hardware. Cholecystectomy clips. Lung bases: Normal heart size. Coronary artery and aortic valve calcification. No pericardial or pleu ral effusion. Minimal dependent changes likely atelectasis. Liver: Normal morphology. Normal density. Biliary: Mild biliary ductal prominence likely a reservoir effect in the post cholecystectomy state. Gallbladder surgically absent. Pancreas: Atrophy of the pancreatic body and tail with pancreatic ductal dilatation and redemonstrati on of the pancreatic head mass. Effaced fat plane adjacent to the superior mesenteric vein and artery . Spleen: Normal noncontrast appearance. Adrenal glands: Normal noncontrast appearance. Kidneys and ureters: Excreted contrast noted in the urinary collecting systems. Normal noncontrast ap pearance of the kidneys otherwise. Evaluation for nephrolithiasis limited. Apparent resolution of suman or right urothelial thickening. Bladder: The bladder is opacified with excreted contrast. Pelvic organs: Uterus surgically absent. Bowel: Mild wall thickening of the mid to distal sigmoid colon may be present. Alternatively, this co uld be due to underdistention. Mild scattered colonic wall thickening may be noted elsewhere as well. The appendix is normal. No bowel obstruction. Small sliding type hiatal hernia. Peritoneal cavity: No free fluid or intraperitoneal gas. Lymph nodes: No gross lymphadenopathy allowing for noncontrast technique. Few subcentimeter lymph nod es in the root of the small bowel mesentery with associated stranding in the mesentery, nonspecific a nd possibly related to mesenteric panniculitis rather than a metastatic source. Vasculature: Atherosclerosis of the normal caliber abdominal aorta. Abdominal wall: Normal. Musculoskeletal: Osteopenia suspected. Degenerative changes of the spine. Postsurgical changes of figueroa inectomies as well as posterior lumbar fusion. IMPRESSION: 1. Allowing for noncontrast technique, findings suggest scattered areas of mild colonic wall thicken ing, which raise concern for mild colitis likely on an infectious or inflammatory basis. 2. Redemonstration of the pancreatic head mass consistent with malignancy. Evaluation for metastatic disease limited on this noncontrast exam. 3. Resolution of the urothelial inflammatory change of the prior CT. Electronically signed by: Jim Zamarripa M.D. 05/31/2019 7:06 AM
[2019-05-31 07:09] LABS: Basophils # (auto) 0.01 K/uL (0-0.2); Basophils % (auto) 0.5 %; Eosinophils # (auto) 0.13 K/uL (0-0.5); Eosinophils % (auto) 6.3 %; Hematocrit (blood only) 27.6 % (37-47); Hemoglobin 9.6 g/dL (12.0-16.0); Lymphocytes # (auto) 0.78 K/uL (1.2-3.4); Lymphocytes % (auto) 37.5 %; Mean Corpuscular Hgb Conc 34.8 g/dL (32-36); Mean Corpuscular Volume 88.7 fL (80-100); Mean Platelet Volume 11.3 fL (7.4-10.4); Monocytes # (auto) 0.02 K/uL (0.11-0.59); Neutrophils # (auto) 1.14 K/uL (1.4-6.5); Neutrophils % (auto) 54.7 %; Platelet Count 142 K/uL (130-400); RDW Coefficient of Variation 12.2 % (11.5-14.5); RDW Standard Deviation 39.2 fL (36.4-46.3); Red Blood Count 3.11 M/uL (4.2-5.4); White Blood Count 2.08 K/uL (4.8-10.8)
[2019-05-31 07:16] LABS: INR 1.5 (0.9-1.1); Prothrombin Time 14.8 Seconds (9.0-12.0)
[2019-05-31 07:51] LABS: Alanine Aminotransferase 45 U/L (12-78); Albumin Globulin Ratio 0.8 (0.9-2); Albumin Level 2.4 gm/dl (3.4-5.0); Alkaline Phosphatase 282 U/L (45-117); Aspartate Aminotransferase 21 U/L (15-37); BUN Creatinine Ratio 25.7 (10-20); Bilirubin,Total 0.7 mg/dl (0.2-1); Blood Urea Nitrogen 10 mg/dl (7-18); Calcium 7.7 mg/dl (8.5-10.1); Carbon Dioxide 23 mmol/L (21-32); Chloride 103 mmol/L (98-107); Creatinine Clr Calc Pharmacy 100.9 ml/min; Est GFR (African American) 117.6; Est GFR (Non-African American) 101.5; Globulin 3.1 gm/dl (2.5-4.0); Glucose 187 mg/dl (70-99); Potassium 3.6 mmol/L (3.5-5.1); Sodium 133 mmol/L (136-145); Total Protein 5.5 gm/dl (6.4-8.2); Troponin I < 0.015 ng/ml (0-0.045)
[2019-05-31] MEDS: PANTOprazole 40 MG TAB PO SCH (08:56)
[2019-05-31] MEDS: AMLODIPINE BESYLATE 5 MG TAB PO SCH (08:57)
[2019-05-31] MEDS: ASPIRIN 81 MG ECTAB PO SCH ×3 (08:57→17:23)
[2019-05-31] MEDS: LOSARTAN POTASSIUM 50 MG TAB PO SCH (08:57)
[2019-05-31] MEDS: MULTIVITAMIN TAB PO SCH (08:57)
[2019-05-31] MEDS: GABAPENTIN 300 MG CAP PO SCH ×2 (08:57→21:15)
[2019-05-31] MEDS: ROSUVASTATIN CALCIUM 20 MG TAB PO SCH (08:58)
[2019-05-31] MEDS ORDERED: METOPROLOL SUCC 25MG EXT REL TAB PO SCH (09:00)
[2019-05-31] MEDS ORDERED: LOPERAMIDE HCL 2 MG CAP PO PRN (17:51)
[2019-05-31] MEDS ORDERED: HYDROmorphone INJ 1 MG/ML SYRINGE IV STA (18:16)
[2019-05-31] MEDS: OXYCODONE HCL IR 5 MG TAB (IMMEDIATE RELEASE) PO PRN (23:57)
[2019-06-01] MEDS: ACETAMINOPHEN 325 MG TAB PO PRN (01:17)
[2019-06-01] MEDS ORDERED: METOPROLOL TARTRATE 1 MG/ML VIAL IV STA (01:33)
[2019-06-01] MEDS ORDERED: KETOROLAC TROMETHAMINE 15 MG/ML VIAL IV ONE (01:33)
[2019-06-01] MEDS ORDERED: LACTATED RINGER'S 1,000 ML IV ONE ×3 (01:33→20:46)
[2019-06-01] MEDS ORDERED: POTASSIUM CHLORIDE 20 MEQ TABCR PO STA ×4 (01:35→23:29)
[2019-06-01 02:42] LABS: INR 2.9 (0.9-1.1); Partial Thromboplastin Ratio 1.3; Partial Thromboplastin Time 34.9 Seconds (21.0-31.0); Prothrombin Time 27.2 Seconds (9.0-12.0)
[2019-06-01 02:48] LABS: BUN Creatinine Ratio 13.2 (10-20); Calcium 7.6 mg/dl (8.5-10.1); Creatinine Clr Calc Pharmacy 109.6 ml/min; Est GFR (African American) 120.8; Est GFR (Non-African American) 104.2; Magnesium 1.2 mg/dl (1.8-2.4); Potassium 3.2 mmol/L (3.5-5.1)
[2019-06-01 03:08] LABS: Eosinophils # (auto) 0.04 K/uL (0-0.5); Eosinophils % (auto) 4.4 %; Hematocrit (blood only) 27.1 % (37-47); Hemoglobin 9.6 g/dL (12.0-16.0); Lymphocytes # (auto) 0.65 K/uL (1.2-3.4); Lymphocytes % (auto) 72.2 %; Mean Corpuscular Hgb Conc 35.4 g/dL (32-36); Mean Corpuscular Volume 88.3 fL (80-100); Mean Platelet Volume 10.7 fL (7.4-10.4); Monocytes # (auto) 0.02 K/uL (0.11-0.59); Monocytes % (auto) 2.2 %; Neutrophils # (auto) 0.19 K/uL (1.4-6.5); Neutrophils % (auto) 21.2 %; Platelet Count 150 K/uL (130-400); RDW Coefficient of Variation 12.1 % (11.5-14.5); RDW Standard Deviation 38.8 fL (36.4-46.3); Red Blood Count 3.07 M/uL (4.2-5.4)
[2019-06-01] MEDS ORDERED: CEFEPIME 2,000 MG in SYRINGE 7.5 ML IV STA (03:37)
--- NOTE | 2019-06-01 03:37 | Hospitalist Progress Note ---
Date of Service June 01, 2019 Subjective Made aware by RN of WBC of 0.9. Abdominal complaints overnight with intermittent tachycardia. AP Neutropenic colitis Cefepime, Flagyl GI consult RE neutropenic colitis Hematology consult RE neutropenia Will relay to AM provider. Results & Data Vital Signs (Past 12 Hours) Vital Signs Temp Pulse Pulse Resp BP BP Pulse Ox 06/01/19 01:51 108 H 130/78 05/31/19 23:22 37.0 C 20 118/67 97 05/31/19 19:17 37 C 100 H 16 129/75 98 05/31/19 15:53 37.0 C 100 H 20 111/64 99 05/31/19 15:39 97 H
[2019-06-01] MEDS: MAGNESIUM SULFATE / D5W 1 GM/100 ML BAG IV SCH ×5 (03:47→10:36)
[2019-06-01 03:56] LABS: Albumin Level 2.4 gm/dl (3.4-5.0)
[2019-06-01] MEDS: METOPROLOL SUCC 25MG EXT REL TAB PO SCH (04:15)
[2019-06-01] MEDS: metroNIDAZOLE 500 MG/100 ML BAG IV SCH ×3 (04:31→19:51)
[2019-06-01] MEDS: GABAPENTIN 300 MG CAP PO SCH ×2 (08:48→21:10)
[2019-06-01] MEDS: AMLODIPINE BESYLATE 5 MG TAB PO SCH (08:48)
[2019-06-01] MEDS: LOSARTAN POTASSIUM 50 MG TAB PO SCH (08:48)
[2019-06-01] MEDS: ASPIRIN 81 MG ECTAB PO SCH (08:49)
[2019-06-01] MEDS: MULTIVITAMIN TAB PO SCH (08:49)
[2019-06-01] MEDS: PANTOprazole 40 MG TAB PO SCH (08:49)
[2019-06-01] MEDS: ROSUVASTATIN CALCIUM 20 MG TAB PO SCH (08:49)
[2019-06-01] MEDS ORDERED: INSULIN GLARGINE SOLOSTAR 100 UNITS/ML 3 ML PEN SQ SCH (09:00)
[2019-06-01] MEDS ORDERED: CEFEPIME CONSULT ACTIVE PRN (09:00)
[2019-06-01] MEDS: INSULIN ASPART 100 UNITS/ML 3 ML PEN SC SCH ×4 (09:30→21:05)
[2019-06-01] MEDS ORDERED: OCTREOTIDE ACETATE 100 MCG/ML VIAL SQ STA (10:38)
--- NOTE | 2019-06-01 10:56 | Gastrointestinal Consultation ---
Date of Consultation June 01, 2019 Assessment & Plan (1) Diarrhea: Likely Chemotherapy induced diarrhea. Her Urine Cx is positive for Klebsiella Pneumonia. She has significant neutropenia. Currently covered with IV ABx. Dilated CBD with elevated ALP related to Pancreatic head cancer. Recommend: Stool Cx. IV Hydration. If no response to antidiarrheal agents and Cx is negative then can consider Octreotide SQ injections. Oncology consult to assist in correcting her neutropenia. If any rectal bleeding or worsening diarrhea then will consider Flex Sig. Obtain MRCP to evaluate for biliary stricture and need for Biliary stenting, in view of her chemotherapy she is at risk for cholangitis. (2) Pancreatic cancer: History of Present Illness Attending Physician: Alejandro Montalvo MD 79 years old female patient with medical comorboids of AFIB on Coumadin, HTN, DM, Recently diagnosed with early stage Pancreatic cancer, started on neoadjuvent chemotherapy, planned for 3 cycles then repeat imaging to decide if tumor is resectable, presented to the hospital with diarrhea and dehydration. Diarrhea was 4-5 times a day, liquid brown stool. No fever or chills. No abdominal pain, nausea or vomiting. CT scan showed nonspecific colitis. C.diff negative and just started on Imodium. Today had 3 liquid BM. Allergies Allergy/AdvReac Type Severity Reaction Status Date / Time Penicillins Allergy Intermediate Hives Verified 05/31/19 00:33 morphine AdvReac Intermediate HALLUCINATE Verified 05/31/19 00:33 S meperidine AdvReac Mild "nausea Verified 05/31/19 00:33 and vomiting" Home Medications Home Medications Medication Instructions Recorded Confirmed Type aspirin [Aspir-81] 81 mg PO QAM 10/16/18 05/31/19 History cholecalciferol (vitamin D3) 1,000 unit PO QAM 10/16/18 05/31/19 History [Vitamin D3] gabapentin 300 mg PO BID 10/16/18 05/31/19 History glimepiride 2 mg PO QPM 10/16/18 05/31/19 History losartan 50 mg PO QAM 10/16/18 05/31/19 History metformin 500 mg PO BID 10/16/18 05/31/19 History metoprolol succinate 75 mg PO QAM 10/16/18 05/31/19 History warfarin 2.5 mg PO DAILY 10/16/18 05/31/19 History Slow-Mag 143 mg PO TID 03/30/19 05/31/19 History amlodipine 5 mg PO QAM 03/30/19 05/31/19 History nitroglycerin [Nitrostat] 0.4 mg SUBLINGUAL UD 03/30/19 05/31/19 History oxycodone 5 mg PO Q6H PRN #10 tab 03/30/19 05/31/19 Rx ranitidine HCl 150 mg PO BID 03/30/19 05/31/19 History rosuvastatin 20 mg PO QAM 03/30/19 05/31/19 History multivitamin 1 tab PO DAILY 05/14/19 05/31/19 History omeprazole 40 mg PO DAILY 05/31/19 05/31/19 History ondansetron HCl 8 mg PO Q8 PRN 05/31/19 05/31/19 History prochlorperazine maleate 10 mg PO Q6 PRN 05/31/19 05/31/19 History Patient History Medical History Atrial fibrillation ON WARFARIN Lumbar stenosis with neurogenic claudication HTN (hypertension) GERD (gastroesophageal reflux disease) HLD (hyperlipidemia) Osteoarthritis Osteoporosis Diabetes mellitus, type II NIDDM Pancreas carcinoma RECENT DIAGNOSIS; REASON FOR UPCOMING PROCEDURE Skin cancer Spinal stenosis Surgical History History of difficult intubation Lumbar hardware removal, L3-L4 decompression fusion: 02/19/18: Glidescope#3, ETT 7.0 at [facility] Fusion of spine LUMBAR AND REVISION (2 SURGERIES) History of biopsy PANCREAS History of cataract surgery History of colonoscopy History of hysterectomy History of tonsillectomy History of total knee replacement LEFT Family History Other Family history non-contributory Social History Preferred Language: Argentine Communication Ability: lethargic/ Underwriting Analyst Required: No Beliefs That Will Affect Care: None marital status: Current Living Situation: Spouse Other Information That Helps Us Care for You: No Feels Safe at Home: Yes Safety Concerns: Feels Safe At This Time Smoking Status: Unknown if ever smoked Hx Alcohol Use: No Hx Substance Use: No Review of Systems Constitutional: no fever, no chills, no fatigue and no weight loss Eyes: no eye pain and no worsening vision Ear, Nose, Mouth, Throat: no tinnitus, no dizziness, no nasal discharge and no epistaxis Respiratory: no cough, no dyspnea, no dyspnea on exertion and no wheezing Cardiovascular: no chest pain, no orthopnea, no palpitations and no edema Gastrointestinal: as per Subjective / HPI Genitourinary: no dysuria, no urinary frequency, no urinary incontinence and no hematuria Musculoskeletal: no stiffness and no myalgia Neurologic: no localized weakness, no paralysis, no tremor(s) and no h eadache(s) Endocrine: no polydipsia and no polyuria Hematologic / Lymphatic: no easy bleeding and no night sweats Physical Exam Constitutional: + well hydrated, cooperative and comfortable Eyes: PERRL, conjunctivae normal, anicteric sclerae ENMT: external ear and nose normal, oropharynx normal Neck: normal visual inspection and trachea midline Respiratory: normal respiratory effort, lungs clear to auscultation Auscultation: no wheezes Cardiovascular: RRR, no murmur, no edema Gastrointestinal (Abdomen): normal bowel sounds, soft, nontender, no hepatosplenomegaly Musculoskeletal: no cyanosis or clubbing, extremities motor strength 5/5 Skin: no rashes, warm and dry Neurologic: awake; no focal motor deficits Motor/Sensory: no tremor Results & Data Vital Signs (Past 12 Hours) Vital Signs Temp Pulse Pulse Resp BP BP Pulse Ox 06/01/19 07:00 36.6 C 120 H 18 136/76 98 06/01/19 04:44 36.9 C 64 18 115/74 96 06/01/19 01:51 108 H 130/78 06/01/19 00:00 92 H 05/31/19 23:22 37.0 C 20 118/67 97 Laboratory Results Laboratory Results - last 24 hr 05/31/19 05/31/19 05/31/19 09:55 11:36 16:48 WBC RBC Hgb Hct MCV MCH MCHC RDW Std Deviation RDW Coeff of Sukhwinder Plt Count MPV Immature Gran % (Auto) Neut % (Auto) Lymph % (Auto) [place] % (Auto) Eos % (Auto) Baso % (Auto) Immature Gran # (Auto) Neut # (Auto) Lymph # (Auto) [place] # (Auto) Eos # (Auto) Baso # (Auto) Blood Smear Review PT INR APTT PTT Ratio Sodium Potassium Chloride Carbon Dioxide Anion Gap BUN Creatinine Est Cr Clr Drug Dosing Est GFR ( Amer) Est GFR (Non-Af Amer) BUN/Creatinine Ratio Glucose POC Glucose 259 H 237 H Lactate Calcium Magnesium Albumin Stl C. diff Tox B Gene Negative Cdiff Gene 05/31/19 06/01/19 06/01/19 20:56 01:57 01:57 WBC 0.90 L* RBC 3.07 L Hgb 9.6 L Hct 27.1 L MCV 88.3 MCH 31.3 MCHC 35.4 RDW Std Deviation 38.8 RDW Coeff of Sukhwinder 12.1 Plt Count 150 MPV 10.7 H Immature Gran % (Auto) 0.0 Neut % (Auto) 21.2 Lymph % (Auto) 72.2 [place] % (Auto) 2.2 Eos % (Auto) 4.4 Baso % (Auto) 0.0 Immature Gran # (Auto) 0.00 Neut # (Auto) 0.19 L* Lymph # (Auto) 0.65 L [place] # (Auto) 0.02 L Eos # (Auto) 0.04 Baso # (Auto) 0.00 Blood Smear Review Pending PT INR APTT PTT Ratio Sodium 131 L Potassium 3.2 L Chloride 98 Carbon Dioxide 27 Anion Gap 6.0 BUN 5 L D Creatinine 0.35 L Est Cr Clr Drug Dosing 109.6 Est GFR ( Amer) 120.8 Est GFR (Non-Af Amer) 104.2 BUN/Creatinine Ratio 13.2 Glucose 151 H POC Glucose 211 H Lactate Calcium 7.6 L Magnesium 1.2 L Albumin 2.4 L Stl C. diff Tox B Gene 06/01/19 06/01/19 06/01/19 01:57 01:57 07:29 WBC RBC Hgb Hct MCV MCH MCHC RDW Std Deviation RDW Coeff of Sukhwinder Plt Count MPV Immature Gran % (Auto) Neut % (Auto) Lymph % (Auto) [place] % (Auto) Eos % (Auto) Baso % (Auto) Immature Gran # (Auto) Neut # (Auto) Lymph # (Auto) [place] # (Auto) Eos # (Auto) Baso # (Auto) Blood Smear Review PT 27.2 H INR 2.9 H APTT 34.9 H PTT Ratio 1.3 Sodium Potassium Chloride Carbon Dioxide Anion Gap BUN Creatinine Est Cr Clr Drug Dosing Est GFR ( Amer) Est GFR (Non-Af Amer) BUN/Creatinine Ratio Glucose POC Glucose 206 H Lactate 0.8 Calcium Magnesium Albumin Stl C. diff Tox B Gene
[2019-06-01] MEDS: CEFEPIME 2,000 MG in SYRINGE 7.5 ML IV SCH ×2 (12:13→19:51)
[2019-06-01] MEDS: KETOROLAC TROMETHAMINE 15 MG/ML VIAL IV PRN (15:34)
--- NOTE | 2019-06-01 16:33 | Hospitalist Progress Note ---
Date of Service June 01, 2019 Assessment & Plan (1) Diarrhea: Likely secondary to chemotherapy regimen, history pancreatic cancer Rule out C. difficile-has been ruled out CT scan of the abdomen and pelvis revealed nonspecific colitis Has been started on intravenous antibiotic-intravenous cefepime and Flagyl Appreciate GI input and recommendation. Octreotide subcu twice daily has been added on top of Imodium as needed for control of diarrhea Will get MRCP to document biliary tree further, the patient may have cholangi (2) Nonspecific colitis: As above (3) Pancreatic cancer: Has been getting chemotherapy with Gemzar, paclitaxel and Aloxi Received about 1 to 2 weeks ago (4) Acute electrocardiogram changes: Has history of atrial fibrillation on Coumadin EKG on admission did show significant widespread inversion without any increase in troponin and no chest pain EKG changes were thought to be secondary to chemotherapeutic he has not likely secondary to use of paclitaxel Echocardiogram: There is mild concentric LV hypertrophy, EF is 55 to 60%, RV systolic function is normal, left atrium and right atrium are mildly dilated and mild to moderate tricuspid regurgitation. No cardiac symptoms (5) Neutropenia: White count cell on admission unremarkable Went down 0.97 this morning Will monitor white cell count and get advice from oncologist for further management of this problem She is on neutropenic precautions now CODE STATUS Full Subjective 06/01 The patient was seen and examined in medical telemetry unit She looks much worse today and complained to have abdominal pain last night Abdominal pain is better and the diarrhea is not yet controlled Denies any blood per rectum Review of Systems Review of Systems: All systems reviewed and are unremarkable except as noted below Constitutional: + fatigue, + malaise, + weakness, + anorexia and + weight loss Respiratory: no cough and no dyspnea Cardiovascular: no chest pain Gastrointestinal: + abdominal pain (Lower quadrant) Neurologic: + generalized weakness Physical Exam Physical Exam: Moderate discomfort at rest due to abdominal discomfort and susan n Constitutional: + acute distress (Moderate distress), + ill appearing, + well hydrated, cooperative and comfortable Eyes: PERRL, conjunctivae normal, anicteric sclerae ENMT: external ear and nose normal, oropharynx normal Neck: normal visual inspection and trachea midline Respiratory: normal respiratory effort Auscultation: lungs clear to auscultation bilaterally; no wheezes Cardiovascular: Rate/Rhythm: regular rate and regular rhythm Heart Sounds: no murmur Gastrointestinal (Abdomen): Inspection/Auscultation: + abdomen distended and normal bowel sounds Percussion/Palpation: + abdomen tender (Lower quadrants) and abdomen soft; no guarding Musculoskeletal: no cyanosis or clubbing, extremities motor strength 5/5 Skin: no rashes, warm and dry Neurologic: awake; no focal motor deficits Motor/Sensory: no tremor Alert, awake and oriented x3. Generally very weak and lethargic Lymphatic: no cervical or axillary lymphadenopathy Results & Data Vital Signs (Past 12 Hours) Vital Signs Temp Pulse Resp BP BP Pulse Ox 06/01/19 15:45 36.6 C 113 H 18 144/87 H 98 06/01/19 11:48 36.8 C 111 H 16 137/67 99 06/01/19 07:00 36.6 C 120 H 18 136/76 98 06/01/19 04:44 36.9 C 64 18 115/74 96 Laboratory Results Short CBC 06/01/19 Range/Units 01:57 WBC 0.90 L* (4.8-10.8) K/uL Hgb 9.6 L (12.0-16.0) g/dL Hct 27.1 L (37-47) % Plt Count 150 (130-400) K/uL BMP 06/01/19 01:57 Sodium 131 L Potassium 3.2 L Chloride 98 Carbon Dioxide 27 BUN 5 L D Creatinine 0.35 L Glucose 151 H Calcium 7.6 L Liver Function 06/01/19 Range/Units 01:57 Albumin 2.4 L (3.4-5.0) gm/dl Medications Administered Current Inpatient Medications Acetaminophen (Tylenol) 650 mg PO Q4H PRN PRN Reason: Pain or Fever Stop: 06/30/19 03:46 Last Admin: 06/01/19 01:17 Dose: 650 mg Documented by: Amlodipine Besylate (Norvasc) [facility] [place] Stop: 06/30/19 08:59 Last Admin: 06/01/19 08:48 Dose: 5 mg Documented by: Aspirin (Ecotrin Ectab) 81 mg PO QAM [facility] Stop: 06/30/19 16:59 Last Admin: 06/01/19 08:49 Dose: 81 mg Documented by: Dextrose (Dextrose 50%) 25 - 50 ml IV UD PRN; Protocol PRN Reason: Hypoglycemia Protocol Stop: 06/30/19 03:46 Gabapentin (Neurontin) 300 mg PO BID [facility] Stop: 06/30/19 08:59 Last Admin: 06/01/19 08:48 Dose: 300 mg Documented by: Glucagon (Glucagen) 1 mg SQ UD PRN; Protocol PRN Reason: Hypoglycemia Protocol Stop: 06/30/19 03:46 Glucose (Dex4 Glucose) 4 - 8 tabs PO UD PRN; Protocol PRN Reason: Hypoglycemia Protocol Stop: 06/30/19 03:46 Glucose (Glucose 40%) 15 - 30 gm PO UD PRN; Protocol PRN Reason: Hypoglycemia Protocol Stop: 06/30/19 03:46 Heparin Sodium (Porcine) (Heparin Sod 100 Unit/Ml Flush) 5 ml FLUSH PRN PRN PRN Reason: Flush Stop: 07/01/19 00:59 Promethazine HCl 12.5 mg/ (Sodium Chloride) 50.5 mls @ 202 mls/hr IV Q6H PRN PRN Reason: Nausea And Vomiting Stop: 06/30/19 01:33 Last Infusion: 06/01/19 10:58 Dose: Infused Documented by: Metronidazole (Flagyl) 500 mg in 100 mls @ 100 mls/hr IV Q8H [facility] Stop: 06/11/19 03:59 Last Infusion: 06/01/19 14:43 Dose: Infused Documented by: Cefepime HCl 2,000 mg/ Syringe 20 mls @ 5 mls/min IV Q8H [facility]; Protocol Stop: 06/11/19 11:59 Last Admin: 06/01/19 12:13 Dose: 5 mls/min Documented by: Insulin Aspart (Novolog Flexpen) 0 units SC ACHS [facility] Stop: 06/30/19 03:46 Last Admin: 06/01/19 12:23 Dose: 4 units Documented by: Insulin Glargine (Lantus Solostar Pen) 5 units SQ DAILY [facility] Stop: 07/01/19 08:59 Last Admin: 05/31/19 08:58 Dose: 5 units Documented by: Ketorolac Tromethamine (Toradol) 15 mg IV Q6H PRN PRN Reason: Pain Stop: 06/05/19 03:46 Last Admin: 06/01/19 15:34 Dose: 15 mg Documented by: Loperamide HCl (Imodium) 2 mg PO Q4H PRN PRN Reason: Diarrhea Stop: 06/30/19 17:50 Losartan Potassium (Cozaar) 50 mg PO QAM [facility] Stop: 06/30/19 08:59 Last Admin: 06/01/19 08:48 Dose: 50 mg Documented by: Metoprolol Succinate (Toprol Xl) 75 mg PO QAM [facility] Stop: 07/01/19 03:44 Last Admin: 06/01/19 04:15 Dose: 75 mg Documented by: Miscellaneous (Carbohydrates For Hypoglycemia) 15 - 30 gm PO UD PRN PRN Reason: Hypoglycemia Treatment Stop: 06/30/19 03:46 Miscellaneous Information (Cefepime Consult Active) 1 ea N/A UD PRN PRN Reason: Consult Stop: 07/01/19 08:59 Multivitamins (Multivitamin Tab) 1 tab PO DAILY [facility] Stop: 06/30/19 08:59 Last Admin: 06/01/19 08:49 Dose: 1 tab Documented by: Nitroglycerin (Nitrostat) 0.4 mg SL UD PRN PRN Reason: Chest Pain Stop: 06/30/19 03:46 Octreotide Acetate (Sandostatin) 50 mcg SQ BID [facility] Stop: 07/01/19 20:59 Oxycodone HCl (Roxicodone Immediate Rel) 5 mg PO Q6H PRN PRN Reason: pain Stop: 06/14/19 03:46 Last Admin: 05/31/19 23:57 Dose: 5 mg Documented by: Pantoprazole Sodium (Protonix) 40 mg PO DAILY [facility] Stop: 06/30/19 08:59 Last Admin: 06/01/19 08:49 Dose: 40 mg Documented by: Ranitidine HCl (Zantac) 150 mg PO BID [facility] Stop: 06/30/19 08:59 Last Admin: 06/01/19 08:49 Dose: 150 mg Documented by: Rosuvastatin Calcium (Crestor) 20 mg PO QAM [facility] Stop: 06/30/19 08:59 Last Admin: 06/01/19 08:49 Dose: 20 mg Documented by:
--- NOTE | 2019-06-01 17:11 | Magnetic Resonance Report ---
MRCP CLINICAL HISTORY: Dilated common bile duct. Pancreatic cancer. COMPARISON STUDY: Abdominal CT dated 05/31/2019. TECHNIQUE: Abdominal MRCP is performed utilizing various T2-weighted sequences in the axial and coron al planes. IV contrast was not administered for this examination. 3-D reformats are created and asses sed. The examination is compromised by motion artifact. FINDINGS: The gallbladder is surgically absent. The common bile duct is dilated, measuring up to 14 mm. The com mon duct is narrowed at the level of a pancreatic head mass. The distal common duct is normal in enio nilson and measures up to 5 mm. No intraluminal filling defects are identified to suggest choledocholith iasis. There is mild intrahepatic biliary ductal dilatation. There is marked dilatation of the mid to distal pancreatic duct to the level of the pancreatic head mass. This measures up to 9 mm diameter. The pancreatic duct at the ampulla is normal in caliber. The unenhanced liver is grossly unremarkable. Again seen is a large infiltrative mass lesion the baldomero on of the pancreatic head. This is not well delineated. The pancreatic body and tail are markedly atr ophic. The spleen and adrenal glands are grossly normal. The kidneys demonstrate cortical atrophy and are without hydronephrosis. There is no abdominal ascites. No evidence of bowel obstruction is ident ified. There are trace pleural effusions. The heart is normal in size. A hiatal hernia is noted. Exte nsive postoperative change is seen throughout the lumbar spine. This degrades assessment for osseous lesions. IMPRESSION: 1. There is marked dilatation of the pancreatic duct as well as the common bile duct secondary to a l arge infiltrative pancreatic head mass. This is unchanged from recent prior CT scans. 2. The gallbladder is surgically absent. 3. There is no evidence of choledocholithiasis. 4. Trace pleural effusions. Electronically signed by: Trent Liz M.D. 06/01/2019 5:10 PM
[2019-06-01] MEDS ORDERED: PHYTONADIONE 10 MG in SODIUM CHLORIDE 0.9% 50 ML IV ONE (18:08)
[2019-06-01] MEDS ORDERED: METOPROLOL TARTRATE 25 MG TAB PO STA (20:33)
[2019-06-01] MEDS ORDERED: INSULIN GLARGINE SOLOSTAR 100 UNITS/ML 3 ML PEN SQ STA (20:35)
[2019-06-01] MEDS ORDERED: methIMAzole 5 MG TABLET PO SCH (21:00)
[2019-06-01] MEDS: OCTREOTIDE ACETATE 100 MCG/ML VIAL SQ SCH (21:09)
[2019-06-01] MEDS: HEPARIN 100 UNIT/ML 5ML FLUSH FLUSH PRN (21:10)
[2019-06-01 22:43] LABS: BUN Creatinine Ratio 11.2 (10-20); Calcium 7.8 mg/dl (8.5-10.1); Creatinine Clr Calc Pharmacy 89.6 ml/min; Est GFR (African American) 113.8; Est GFR (Non-African American) 98.2; Magnesium 1.6 mg/dl (1.8-2.4)
[2019-06-01 22:44] LABS: Potassium 3.7 mmol/L (3.5-5.1)
[2019-06-01] MEDS: OXYCODONE HCL IR 5 MG TAB (IMMEDIATE RELEASE) PO PRN (23:17)
[2019-06-01] MEDS ORDERED: MAGNESIUM SULFATE / D5W 1 GM/100 ML BAG IV ONE (23:29)
[2019-06-02] MEDS: POTASSIUM CHLORIDE / WTR 10 MEQ/100 ML PLCT IV SCH ×3 (00:43→02:46)
[2019-06-02] MEDS: KETOROLAC TROMETHAMINE 15 MG/ML VIAL IV PRN (01:48)
[2019-06-02] MEDS: metroNIDAZOLE 500 MG/100 ML BAG IV SCH ×3 (04:19→22:10)
[2019-06-02] MEDS: CEFEPIME 2,000 MG in SYRINGE 7.5 ML IV SCH ×3 (05:20→22:06)
[2019-06-02 05:40] LABS: Hematocrit (blood only) 27.2 % (37-47); Hemoglobin 9.6 g/dL (12.0-16.0); Mean Corpuscular Hgb Conc 35.3 g/dL (32-36); Mean Corpuscular Volume 88.9 fL (80-100); Mean Platelet Volume 10.4 fL (7.4-10.4); Nucleated RBC # (auto) 0.02 K/uL (0-0); Nucleated RBC % (auto) 1.3 %; Platelet Count 136 K/uL (130-400); RDW Standard Deviation 38.8 fL (36.4-46.3); Red Blood Count 3.06 M/uL (4.2-5.4); White Blood Count 1.68 K/uL (4.8-10.8)
[2019-06-02 05:48] LABS: INR 2.6 (0.9-1.1); Prothrombin Time 24.9 Seconds (9.0-12.0)
[2019-06-02 06:12] LABS: Albumin Globulin Ratio 0.7 (0.9-2); Albumin Level 2.1 gm/dl (3.4-5.0); BUN Creatinine Ratio 11.3 (10-20); Bilirubin,Total 0.4 mg/dl (0.2-1); Calcium 7.6 mg/dl (8.5-10.1); Creatinine Clr Calc Pharmacy 94.1 ml/min; Est GFR (African American) 115.6; Est GFR (Non-African American) 99.8; Globulin 3.2 gm/dl (2.5-4.0); Magnesium 1.8 mg/dl (1.8-2.4); Total Protein 5.3 gm/dl (6.4-8.2)
[2019-06-02 06:29] LABS: Dohle Bodies 1+; Eosinophils # (auto) 0.04 K/uL (0-0.5); Eosinophils % (auto) 2.4 %; Lymphocytes # (auto) 0.93 K/uL (1.2-3.4); Lymphocytes % (auto) 55.4 %; Monocytes # (auto) 0.05 K/uL (0.11-0.59); Neutrophils # (auto) 0.66 K/uL (1.4-6.5); Neutrophils % (auto) 39.2 %
[2019-06-02 06:34] LABS: Phosphorus 1.5 mg/dl (2.5-4.9)
[2019-06-02] MEDS ORDERED: SODIUM PHOSPHATE 3 MMOL/1 ML 5 ML VIAL IV STA (06:39)
[2019-06-02] MEDS ORDERED: MAGNESIUM SULFATE / D5W 1 GM/100 ML BAG IV ONE (07:00)
[2019-06-02] MEDS ORDERED: SODIUM PHOSPHATE 30 MMOL in SODIUM CHLORIDE 0.9% 500 ML IV ONE (07:00)
[2019-06-02] MEDS: OCTREOTIDE ACETATE 100 MCG/ML VIAL SQ SCH ×2 (09:24→22:06)
[2019-06-02] MEDS: GABAPENTIN 300 MG CAP PO SCH ×2 (09:36→22:06)
[2019-06-02] MEDS: LOSARTAN POTASSIUM 50 MG TAB PO SCH (09:36)
[2019-06-02] MEDS: METOPROLOL SUCC 25MG EXT REL TAB PO SCH (09:36)
[2019-06-02] MEDS: ASPIRIN 81 MG ECTAB PO SCH (09:37)
[2019-06-02] MEDS: PANTOprazole 40 MG TAB PO SCH (09:37)
[2019-06-02] MEDS: MULTIVITAMIN TAB PO SCH (09:37)
[2019-06-02] MEDS: ROSUVASTATIN CALCIUM 20 MG TAB PO SCH (09:38)
[2019-06-02] MEDS: AMLODIPINE BESYLATE 5 MG TAB PO SCH (09:38)
[2019-06-02] MEDS: INSULIN GLARGINE SOLOSTAR 100 UNITS/ML 3 ML PEN SQ SCH (09:39)
[2019-06-02] MEDS: INSULIN ASPART 100 UNITS/ML 3 ML PEN SC SCH ×4 (09:42→22:05)
--- NOTE | 2019-06-02 10:22 | Gastroenterology Progress Note ---
Date of Service June 02, 2019 Assessment & Plan (1) Neutropenia: 79 year old female with AFIB on Coumadin, HTN, DM, recently diagnosed with early stage Pancreatic CA on kris-adjuvent chemotherapy to follow as an OP to decide if tumor is resectable who presented with chemotherapy associated di arrhea, clinically improving. MRI reviewed and labs reviewed. She remains afebrile. Pancreatic mass, elevated ALKP, abnormal MRI Currently neutropenic Discussed risk/benefits of ERCP She defers this at this point in time I offered to call her family to discuss She asked me not to call, she will call them later tonight Chemotherapy induced diarrhea c.diff negative send stool culture if diarrhea returns continue symptomatic management for now Thank you for allowing us to participate in the care of this patient. Please call with any acute changes, questions or concerns. Please see addendum below with additional recommendation from my supervising physician. Present on Admission?: Yes (2) Pancreatic cancer: Supervising Physician Co-Signing Physician Notes I have personally seen and examined the patient with MAURI Huitron. Her note reflects my exam and findings. I agree with her impression and plan. Patient w/o signs of active infection. Has neutropenia on chemo. She does not want to pursue ERCP at this point and I agree given low percentage that it would change current treatment. Discussed with daughter at bedside as well. Ryan Pan M.D. Subjective Pt was seen and evaluated, chart reviewed. Was made NPO for possible ERCP today. Pt notes she is feeling well. Denies abd pain No nausea, vomiting No diarrhea today. She is very overwhelmed Review of Systems Constitutional: no fever, no chills and no fatigue Respiratory: no cough, no chest congestion and no dyspnea Cardiovascular: no chest pain, no radiating jaw, neck or arm pain and no dyspnea on exertion Gastrointestinal: no abdominal pain, no belching, no vomiting, no coffee ground emesis, no blood in stools and no melena Physical Exam Constitutional: WD/WN, vitals as above Respiratory: normal respiratory effort, lungs clear to auscultation Cardiovascular: RRR, no murmur, no edema Gastrointestinal (Abdomen): normal bowel sounds, soft, nontender, no hepatosplenomegaly Skin: no rashes, warm and dry Results & Data Vital Signs (Past 12 Hours) Vital Signs Temp Pulse Resp BP BP Pulse Ox 06/02/19 07:49 36.7 C 93 H 18 118/70 99 06/02/19 04:23 37.3 C 96 H 18 114/66 98 06/01/19 23:08 36.7 C 101 H 18 120/70 97 Laboratory Results 06/02/19 06/02/19 06/02/19 Range/Units 07:35 05:20 05:20 WBC 1.68 L (4.8-10.8) K/uL RBC 3.06 L (4.2-5.4) M/uL Hgb 9.6 L (12.0-16.0) g/dL Hct 27.2 L (37-47) % MCV 88.9 (80-100) fL MCH 31.4 (25-34) pg MCHC 35.3 (32-36) g/dL RDW Std Deviation 38.8 (36.4-46.3) fL RDW Coeff of Sukhwinder 12.0 (11.5-14.5) % Plt Count 136 (130-400) K/uL MPV 10.4 (7.4-10.4) fL Immature Gran % (Auto) 0.0 % Neut % (Auto) 39.2 % Lymph % (Auto) 55.4 % [place] % (Auto) 3.0 % Eos % (Auto) 2.4 % Baso % (Auto) 0.0 % Immature Gran # (Auto) 0.00 (0.00-0.02) K/uL Neut # (Auto) 0.66 L* (1.4-6.5) K/uL Lymph # (Auto) 0.93 L (1.2-3.4) K/uL [place] # (Auto) 0.05 L (0.11-0.59) K/uL Eos # (Auto) 0.04 (0-0.5) K/uL Baso # (Auto) 0.00 (0-0.2) K/uL Absolute Nucleated RBC 0.02 H (0-0) K/uL Nucleated RBC % (auto) 1.3 % Blood Smear Review Dohle Bodies 1+ Giant Platelets 1+ PT 24.9 H (9.0-12.0) Seconds INR 2.6 H (0.9-1.1) Sodium (136-145) mmol/L Potassium (3.5-5.1) mmol/L Chloride (98-107) mmol/L Carbon Dioxide (21-32) mmol/L Anion Gap (3-11) BUN (7-18) mg/dl Creatinine (0.6-1.2) mg/dl Est Cr Clr Drug Dosing ml/min Est GFR ( Amer) Est GFR (Non-Af Amer) BUN/Creatinine Ratio (10-20) Glucose (70-99) mg/dl POC Glucose 144 H (70-99) Calcium (8.5-10.1) mg/dl Phosphorus (2.5-4.9) mg/dl Magnesium (1.8-2.4) mg/dl Total Bilirubin (0.2-1) mg/dl AST (15-37) U/L ALT (12-78) U/L Alkaline Phosphatase (45-117) U/L Total Protein (6.4-8.2) gm/dl Albumin (3.4-5.0) gm/dl Globulin (2.5-4.0) gm/dl Albumin/Globulin Ratio (0.9-2) Thyroid Stim Immunoglob Thyroid Antimicrosomal Thyroglobulin Antibody 06/02/19 06/02/19 06/01/19 Range/Units 05:20 05:19 22:15 WBC (4.8-10.8) K/uL RBC (4.2-5.4) M/uL Hgb (12.0-16.0) g/dL Hct (37-47) % MCV (80-100) fL MCH (25-34) pg MCHC (32-36) g/dL RDW Std Deviation (36.4-46.3) fL RDW Coeff of Sukhwinder (11.5-14.5) % Plt Count (130-400) K/uL MPV (7.4-10.4) fL Immature Gran % (Auto) % Neut % (Auto) % Lymph % (Auto) % [place] % (Auto) % Eos % (Auto) % Baso % (Auto) % Immature Gran # (Auto) (0.00-0.02) K/uL Neut # (Auto) (1.4-6.5) K/uL Lymph # (Auto) (1.2-3.4) K/uL [place] # (Auto) (0.11-0.59) K/uL Eos # (Auto) (0-0.5) K/uL Baso # (Auto) (0-0.2) K/uL Absolute Nucleated RBC (0-0) K/uL Nucleated RBC % (auto) % Blood Smear Review Dohle Bodies Giant Platelets PT (9.0-12.0) Seconds INR (0.9-1.1) Sodium 130 L 129 L (136-145) mmol/L Potassium 4.0 3.7 D (3.5-5.1) mmol/L Chloride 98 96 L (98-107) mmol/L Carbon Dioxide 27 25 (21-32) mmol/L Anion Gap 5.0 8.0 (3-11) BUN 5 L 5 L (7-18) mg/dl Creatinine 0.40 L 0.42 L (0.6-1.2) mg/dl Est Cr Clr Drug Dosing 94.1 89.6 ml/min Est GFR ( Amer) 115.6 113.8 Est GFR (Non-Af Amer) 99.8 98.2 BUN/Creatinine Ratio 11.3 11.2 (10-20) Glucose 155 H 177 H (70-99) mg/dl POC Glucose (70-99) Calcium 7.6 L 7.8 L (8.5-10.1) mg/dl Phosphorus 1.5 L* (2.5-4.9) mg/dl Magnesium 1.8 1.6 L (1.8-2.4) mg/dl Total Bilirubin 0.4 (0.2-1) mg/dl AST 16 (15-37) U/L ALT 29 (12-78) U/L Alkaline Phosphatase 210 H (45-117) U/L Total Protein 5.3 L (6.4-8.2) gm/dl Albumin 2.1 L (3.4-5.0) gm/dl Globulin 3.2 (2.5-4.0) gm/dl Albumin/Globulin Ratio 0.7 L (0.9-2) Thyroid Stim Immunoglob Pending Thyroid Antimicrosomal Pending Thyroglobulin Antibody Pending 06/01/19 06/01/19 06/01/19 Range/Units 20:21 16:49 11:26 WBC (4.8-10.8) K/uL RBC (4.2-5.4) M/uL Hgb (12.0-16.0) g/dL Hct (37-47) % MCV (80-100) fL MCH (25-34) pg MCHC (32-36) g/dL RDW Std Deviation (36.4-46.3) fL RDW Coeff of Sukhwinder (11.5-14.5) % Plt Count (130-400) K/uL MPV (7.4-10.4) fL Immature Gran % (Auto) % Neut % (Auto) % Lymph % (Auto) % [place] % (Auto) % Eos % (Auto) % Baso % (Auto) % Immature Gran # (Auto) (0.00-0.02) K/uL Neut # (Auto) (1.4-6.5) K/uL Lymph # (Auto) (1.2-3.4) K/uL [place] # (Auto) (0.11-0.59) K/uL Eos # (Auto) (0-0.5) K/uL Baso # (Auto) (0-0.2) K/uL Absolute Nucleated RBC (0-0) K/uL Nucleated RBC % (auto) % Blood Smear Review Dohle Bodies Giant Platelets PT (9.0-12.0) Seconds INR (0.9-1.1) Sodium (136-145) mmol/L Potassium (3.5-5.1) mmol/L Chloride (98-107) mmol/L Carbon Dioxide (21-32) mmol/L Anion Gap (3-11) BUN (7-18) mg/dl Creatinine (0.6-1.2) mg/dl Est Cr Clr Drug Dosing ml/min Est GFR ( Amer) Est GFR (Non-Af Amer) BUN/Creatinine Ratio (10-20) Glucose (70-99) mg/dl POC Glucose 204 H 234 H 257 H (70-99) Calcium (8.5-10.1) mg/dl Phosphorus (2.5-4.9) mg/dl Magnesium (1.8-2.4) mg/dl Total Bilirubin (0.2-1) mg/dl AST (15-37) U/L ALT (12-78) U/L Alkaline Phosphatase (45-117) U/L Total Protein (6.4-8.2) gm/dl Albumin (3.4-5.0) gm/dl Globulin (2.5-4.0) gm/dl Albumin/Globulin Ratio (0.9-2) Thyroid Stim Immunoglob Thyroid Antimicrosomal Thyroglobulin Antibody 06/01/19 Range/Units 01:57 WBC (4.8-10.8) K/uL RBC (4.2-5.4) M/uL Hgb (12.0-16.0) g/dL Hct (37-47) % MCV (80-100) fL MCH (25-34) pg MCHC (32-36) g/dL RDW Std Deviation (36.4-46.3) fL RDW Coeff of Sukhwinder (11.5-14.5) % Plt Count (130-400) K/uL MPV (7.4-10.4) fL Immature Gran % (Auto) % Neut % (Auto) % Lymph % (Auto) % [place] % (Auto) % Eos % (Auto) % Baso % (Auto) % Immature Gran # (Auto) (0.00-0.02) K/uL Neut # (Auto) (1.4-6.5) K/uL Lymph # (Auto) (1.2-3.4) K/uL [place] # (Auto) (0.11-0.59) K/uL Eos # (Auto) (0-0.5) K/uL Baso # (Auto) (0-0.2) K/uL Absolute Nucleated RBC (0-0) K/uL Nucleated RBC % (auto) % Blood Smear Review Dohle Bodies Giant Platelets PT (9.0-12.0) Seconds INR (0.9-1.1) Sodium (136-145) mmol/L Potassium (3.5-5.1) mmol/L Chloride (98-107) mmol/L Carbon Dioxide (21-32) mmol/L Anion Gap (3-11) BUN (7-18) mg/dl Creatinine (0.6-1.2) mg/dl Est Cr Clr Drug Dosing ml/min Est GFR ( Amer) Est GFR (Non-Af Amer) BUN/Creatinine Ratio (10-20) Glucose (70-99) mg/dl POC Glucose (70-99) Calcium (8.5-10.1) mg/dl Phosphorus (2.5-4.9) mg/dl Magnesium (1.8-2.4) mg/dl Total Bilirubin (0.2-1) mg/dl AST (15-37) U/L ALT (12-78) U/L Alkaline Phosphatase (45-117) U/L Total Protein (6.4-8.2) gm/dl Albumin (3.4-5.0) gm/dl Globulin (2.5-4.0) gm/dl Albumin/Globulin Ratio (0.9-2) Thyroid Stim Immunoglob Thyroid Antimicrosomal Thyroglobulin Antibody
[2019-06-02] MEDS: HEPARIN 100 UNIT/ML 5ML FLUSH FLUSH PRN (15:34)
[2019-06-03] MEDS: metroNIDAZOLE 500 MG/100 ML BAG IV SCH ×2 (05:04→12:54)
[2019-06-03] MEDS: CEFEPIME 2,000 MG in SYRINGE 7.5 ML IV SCH ×2 (05:04→12:54)
[2019-06-03 06:44] LABS: Creatinine Clr Calc Pharmacy 91.7 ml/min; Est GFR (African American) 115.6; Est GFR (Non-African American) 99.8
--- NOTE | 2019-06-03 07:18 | Hospitalist Progress Note ---
Date of Service delayed entry date of service 06/02/19 June 03, 2019 Assessment & Plan (1) Diarrhea: Likely secondary to chemotherapy regimen, history pancreatic cancer Rule out C. difficile-has been ruled out CT scan of the abdomen and pelvis revealed nonspecific colitis improving on Cefepime and Flagyl GI consulted (2) Nonspecific colitis: As above (3) Pancreatic cancer: Has been getting chemotherapy with Gemzar, paclitaxel and Aloxi Received about 1 to 2 weeks ago (4) Acute electrocardiogram changes: No cardiac symptoms (5) Neutropenia: ANC still low monitor CODE STATUS Full (6) UTI (urinary tract infection): Subjective ff up for diarrhea seen resting in bed, appears weak but alert still has some diarrhea, but improving no abdominal pain, nausea no other symptoms Review of Systems Review of Systems: All systems reviewed & are unremarkable except as noted in HPI & below Physical Exam Physical Exam: General- oriented x 3, not in distress, speaks in sentences with no effort or accessory muscle use Head- atraumatic Eyes- PERRL, EOMI, anicteric ENT- oropharynx clear Neck- supple, no JVD, no adenopathy, no thyromegaly; carotids +2/2, no bruits appreciated Lungs- clear to auscultation bilaterally, no rales/wheezes Heart- normal rate, regular rhythm; no murmur, no gallop, no rub appreciated Abdomen- mild hyperactive bowel sounds, nondistended, soft, nontender, no masses or hepatosplenomegaly Extremities- no pretibial edema, no calf tenderness; peripheral pulses intact Neuro- alert, oriented x 3; CN 2-12 grossly intact; motor 5/5 bilaterally;sensation 100% on all extremities; no other gross focal neurologic deficits Skin- warm & dry Results & Data Vital Signs (Past 12 Hours) Vital Signs Temp Pulse Resp BP Pulse Ox 06/03/19 04:17 36.6 C 90 20 100/62 97 06/02/19 23:59 36.8 C 84 20 108/51 L 97 06/02/19 19:53 36.7 C 82 18 134/73 100
[2019-06-03] MEDS: INSULIN ASPART 100 UNITS/ML 3 ML PEN SC SCH ×4 (08:48→21:06)
[2019-06-03] MEDS: LOSARTAN POTASSIUM 50 MG TAB PO SCH (08:50)
[2019-06-03] MEDS: GABAPENTIN 300 MG CAP PO SCH ×2 (08:50→21:05)
[2019-06-03] MEDS: ROSUVASTATIN CALCIUM 20 MG TAB PO SCH (08:50)
[2019-06-03] MEDS: ASPIRIN 81 MG ECTAB PO SCH (08:50)
[2019-06-03] MEDS: AMLODIPINE BESYLATE 5 MG TAB PO SCH (08:50)
[2019-06-03] MEDS: MULTIVITAMIN TAB PO SCH (08:50)
[2019-06-03] MEDS: METOPROLOL SUCC 25MG EXT REL TAB PO SCH (08:51)
[2019-06-03] MEDS: PANTOprazole 40 MG TAB PO SCH (08:51)
[2019-06-03] MEDS: INSULIN GLARGINE SOLOSTAR 100 UNITS/ML 3 ML PEN SQ SCH (08:52)
[2019-06-03] MEDS: OCTREOTIDE ACETATE 100 MCG/ML VIAL SQ SCH ×2 (08:56→21:15)
--- NOTE | 2019-06-03 09:18 | Gastroenterology Progress Note ---
Date of Service June 03, 2019 Assessment & Plan (1) Neutropenia: 79 year old female with AFIB on Coumadin, HTN, DM, recently diagnosed with early stage Pancreatic CA on kris-adjuvent chemotherapy to follow as an OP to decide if tumor is resectable who presented with chemotherapy associated di arrhea, clinically improving. MRI reviewed and labs reviewed. She remains afebrile. Pancreatic mass, elevated ALKP, abnormal MRI Currently neutropenic Discussed risk/benefits of ERCP She defers this at this point in time Chemotherapy induced diarrhea c.diff negative send stool culture if diarrhea returns continue symptomatic management for now as bowels are controlled on imodium. Anxiety related to underlying illness Discussed goals of care at bedside Pt unsure of her wishes Encouraged ongoing discussion w/ primary service, oncologist, family Thank you for allowing us to participate in the care of this patient. Please call with any acute changes, questions or concerns. Please see addendum below with additional recommendation from my supervising physician. (2) Pancreatic cancer: Supervising Physician Co-Signing Physician Notes I have personally seen and examined the patient with MAURI Huitron. Her note reflects my exam and findings. I agree with her impression and plan. Bowels improved. No indication for ERCP at this point. Ryan Pan M.D. Subjective Pt was seen and evaluated, chart reviewed. No acute events noted Upon entering pt room she was crying She tells me she was up all night, upset, worrying about her diagnosis and moving forward She is overwhelmed She is unsure of what her goals of care are and what her wishes are Denies abd pain Is tolerating breakfast this AM, no nausea, vomiting Moving bowels No diarrhea since yesterday Semi-formed, brown/green No fever, chills, CP, SOB Review of Systems Constitutional: no fever, no body aches and no weakness Respiratory: no cough, no dyspnea and no wheezing Cardiovascular: no chest pain, no radiating jaw, neck or arm pain and no claudication Gastrointestinal: no abdominal pain, no early satiety, no nausea, no vomiting, no blood in stools and no melena Physical Exam Constitutional: WD/WN, vitals as above + ill appearing; no acute distress Respiratory: normal respiratory effort, lungs clear to auscultation Cardiovascular: RRR, no murmur, no edema Gastrointestinal (Abdomen): normal bowel sounds, soft, nontender, no hepatosplenomegaly Skin: no rashes, warm and dry Results & Data Vital Signs (Past 12 Hours) Vital Signs Temp Pulse Resp BP BP Pulse Ox 06/03/19 07:34 36.8 C 104 H 20 91/48 L 98 06/03/19 04:17 36.6 C 90 20 100/62 97 06/02/19 23:59 36.8 C 84 20 108/51 L 97 Laboratory Results 06/03/19 06/03/19 06/02/19 Range/Units 07:42 05:35 20:31 Blood Smear Review Creatinine 0.40 L (0.6-1.2) mg/dl Est Cr Clr Drug Dosing 91.7 ml/min Est GFR ( Amer) 115.6 Est GFR (Non-Af Amer) 99.8 POC Glucose 94 226 H (70-99) 06/02/19 06/02/19 06/01/19 Range/Units 16:44 11:41 01:57 Blood Smear Review Creatinine (0.6-1.2) mg/dl Est Cr Clr Drug Dosing ml/min Est GFR ( Amer) Est GFR (Non-Af Amer) POC Glucose 128 H 196 H (70-99)
[2019-06-03 11:57] LABS: Hematocrit (blood only) 26.4 % (37-47); Hemoglobin 9.3 g/dL (12.0-16.0); Mean Corpuscular Hgb Conc 35.2 g/dL (32-36); Mean Corpuscular Volume 87.1 fL (80-100); Mean Platelet Volume 10.9 fL (7.4-10.4); Platelet Count 125 K/uL (130-400); RDW Coefficient of Variation 12.2 % (11.5-14.5); RDW Standard Deviation 38.6 fL (36.4-46.3); Red Blood Count 3.03 M/uL (4.2-5.4); White Blood Count 2.05 K/uL (4.8-10.8)
[2019-06-03 11:57] LABS: INR 2.3 (0.9-1.1); Prothrombin Time 22.6 Seconds (9.0-12.0)
[2019-06-03 12:00] LABS: BUN Creatinine Ratio 13.7 (10-20); Calcium 7.9 mg/dl (8.5-10.1); Creatinine Clr Calc Pharmacy 87.3 ml/min; Est GFR (African American) 113.8; Est GFR (Non-African American) 98.2; Potassium 3.2 mmol/L (3.5-5.1)
[2019-06-03 12:53] LABS: Eosinophils # (auto) 0.13 K/uL (0-0.5); Eosinophils % (auto) 6.3 %; Immature Granulocytes # (auto) 0.03 K/uL (0.00-0.02); Immature Granulocytes % (auto) 1.5 %; Lymphocytes # (auto) 1.08 K/uL (1.2-3.4); Lymphocytes % (auto) 52.7 %; Monocytes # (auto) 0.22 K/uL (0.11-0.59); Monocytes % (auto) 10.7 %; Neutrophils # (auto) 0.59 K/uL (1.4-6.5); Neutrophils % (auto) 28.8 %; Smudge Cells Present
[2019-06-03] MEDS: HEPARIN 100 UNIT/ML 5ML FLUSH FLUSH PRN ×2 (14:32→17:40)
[2019-06-03] MEDS ORDERED: SODIUM CHLORIDE 0.9% 500 ML IV SCH (16:00)
--- NOTE | 2019-06-03 18:46 | Hospitalist Progress Note ---
Date of Service June 03, 2019 Assessment & Plan (1) Diarrhea: Likely secondary to chemotherapy regimen, history pancreatic cancer C. difficile ruled out CT scan of the abdomen and pelvis revealed nonspecific colitis Has been started on intravenous antibiotic-intravenous cefepime and Flagyl Appreciate GI input and recommendation. Octreotide subcu twice daily has been added on top of Imodium as needed for control of diarrhea MRCP noted: Possible compression of pancreatic and CBD by necrotic head mass Diarrhea resolved On cefepime and Flagyl We will need to discuss with oncologist (2) Nonspecific colitis: As above (3) Pancreatic cancer: Has been getting chemotherapy with Gemzar, paclitaxel and Aloxi Received about 1 to 2 weeks ago (4) Acute electrocardiogram changes: Has history of atrial fibrillation on Coumadin EKG on admission did show significant widespread inversion without any increase in troponin and no chest pain EKG changes were thought to be secondary to chemotherapeutic he has not likely secondary to use of paclitaxel Echocardiogram: There is mild concentric LV hypertrophy, EF is 55 to 60%, RV systolic function is normal, left atrium and right atrium are mildly dilated and mild to moderate tricuspid regurgitation. No cardiac symptoms (5) Neutropenia: ANC still low, today 590, will discuss with oncology CODE STATUS Full Disposition Pending PT OT in progress, anticipate discharge home medically stable This with patient and her daughter at the bedside, detail and at length All questions answered They are comfortable and agreeable with plan of care. (6) UTI (urinary tract infection): Subjective Follow-up for diarrhea, neutropenia Seen resting bedside chair, sitting up, comfortable, not in distress Appears brighter, more alert Has been emotional today, inquired, patient states she is fearful of any more procedures, including possible endoscopy during this admission Clarified with patient that there are no plans for endoscopies, reassured, she seemed to be better after explanation States she feels improved compared to yesterday Diarrhea since last night, no abdominal pain, nausea vomiting Denies fever chills, shortness of breath, chest pain, dizziness, palpitations No other symptoms Review of Systems Review of Systems: All systems reviewed & are unremarkable except as noted in HPI & below Physical Exam Physical Exam: General- oriented x 3, not in distress, speaks in sentences with no effort or accessory muscle use Eyes- anicteric Neck- no JVD Lungs- clear breath sounds bilaterally, no crackles or wheezing Heart- normal rate, regular rhythm; no murmurs Abdomen- normal bowel sounds, nondistended, soft, nontender Extremities- no pretibial edema, no calf tenderness Neuro- alert, oriented x 3; no gross focal neurologic deficits Skin- warm & dry Results & Data Vital Signs (Past 12 Hours) Vital Signs Temp Pulse Pulse Resp BP BP Pulse Ox 06/03/19 16:04 79 06/03/19 15:38 37.0 C 81 18 89/54 L 98 06/03/19 12:13 36.6 C 83 18 101/62 98 06/03/19 07:34 36.8 C 104 H 20 91/48 L 98
[2019-06-03] MEDS ORDERED: POTASSIUM CHLORIDE 20 MEQ TABCR PO STA (18:47)
[2019-06-03] MEDS ORDERED: ZOLPIDEM TARTRATE 5 MG TAB PO PRN (18:47)
[2019-06-03] MEDS: WARFARIN SOD 2.5 MG TAB PO SCH (19:45)
[2019-06-03] MEDS: POTASSIUM CHLORIDE / WTR 10 MEQ/100 ML PLCT IV SCH ×4 (19:49→23:17)
[2019-06-03] MEDS: cefTRIAXone SODIUM 2,000 MG in DEXTROSE 5% 50 ML IV SCH (20:59)
[2019-06-04 06:44] LABS: INR 2.3 (0.9-1.1); Prothrombin Time 22.4 Seconds (9.0-12.0)
[2019-06-04 06:50] LABS: Creatinine Clr Calc Pharmacy 79.7 ml/min; Est GFR (African American) 110.4; Est GFR (Non-African American) 95.3
[2019-06-04] MEDS: CARBOHYDRATES FOR HYPOGLYCEMIA PO PRN ×2 (07:54→08:10)
[2019-06-04 08:45] LABS: Basophils # (auto) 0.01 K/uL (0-0.2); Basophils % (auto) 0.3 %; Eosinophils # (auto) 0.18 K/uL (0-0.5); Eosinophils % (auto) 4.9 %; Hematocrit (blood only) 28.4 % (37-47); Immature Granulocytes # (auto) 0.09 K/uL (0.00-0.02); Immature Granulocytes % (auto) 2.5 %; Mean Corpuscular Hgb Conc 35.2 g/dL (32-36); Mean Corpuscular Volume 87.9 fL (80-100); Mean Platelet Volume 10.3 fL (7.4-10.4); Monocytes # (auto) 0.74 K/uL (0.11-0.59); Monocytes % (auto) 20.3 %; Neutrophils # (auto) 1.02 K/uL (1.4-6.5); Platelet Count 126 K/uL (130-400); RDW Coefficient of Variation 12.4 % (11.5-14.5); Red Blood Count 3.23 M/uL (4.2-5.4); White Blood Count 3.64 K/uL (4.8-10.8)
[2019-06-04] MEDS: GABAPENTIN 300 MG CAP PO SCH ×2 (08:57→20:13)
[2019-06-04] MEDS: ROSUVASTATIN CALCIUM 20 MG TAB PO SCH (08:57)
[2019-06-04] MEDS: PANTOprazole 40 MG TAB PO SCH (08:57)
[2019-06-04] MEDS: MULTIVITAMIN TAB PO SCH (08:57)
[2019-06-04] MEDS: ASPIRIN 81 MG ECTAB PO SCH (08:58)
[2019-06-04] MEDS: METOPROLOL SUCC 25MG EXT REL TAB PO SCH (08:59)
[2019-06-04] MEDS: INSULIN ASPART 100 UNITS/ML 3 ML PEN SC SCH ×4 (09:04→20:58)
[2019-06-04] MEDS: INSULIN GLARGINE SOLOSTAR 100 UNITS/ML 3 ML PEN SQ SCH (09:05)
[2019-06-04 09:15] LABS: BUN Creatinine Ratio 10.8 (10-20); Creatinine Clr Calc Pharmacy 74.8 ml/min; Est GFR (African American) 108.2; Est GFR (Non-African American) 93.3; Potassium 3.2 mmol/L (3.5-5.1)
[2019-06-04] MEDS ORDERED: POTASSIUM CHLORIDE 20 MEQ/15 ML UDC PO SCH (11:30)
[2019-06-04] MEDS: OCTREOTIDE ACETATE 100 MCG/ML VIAL SQ SCH (12:39)
[2019-06-04] MEDS: WARFARIN SOD 2.5 MG TAB PO SCH (15:36)
[2019-06-04] MEDS ORDERED: PHARMACY GLYCEMIC MGMT CONSULT PRN (17:31)
--- NOTE | 2019-06-04 18:13 | Hospitalist Progress Note ---
Date of Service June 04, 2019 Assessment & Plan (1) Diarrhea: Likely secondary to chemotherapy regimen, history pancreatic cancer C. difficile ruled out CT scan of the abdomen and pelvis revealed nonspecific colitis Has been started on intravenous antibiotic-intravenous cefepime and Flagyl Appreciate GI input and recommendation. Octreotide subcu twice daily has been added on top of Imodium as needed for control of diarrhea MRCP noted: Possible compression of pancreatic and CBD by necrotic head mass Diarrhea resolved Continue to monitor on soft diet DC octreotide (2) Neutropenia: ANC improved, now 1020 Rosita with oncologist, does not recommend Neupogen at this time Continue to monitor trend (3) UTI (urinary tract infection): Now on day 5 of IV antibiotic, ceftriaxone IV (4) Pancreatic cancer: Has been getting chemotherapy with Gemzar, paclitaxel and Aloxi Received about 1 to 2 weeks ago Discussed with patient's oncologist (5) Acute electrocardiogram changes: Has history of atrial fibrillation on Coumadin EKG on admission did show significant widespread inversion without any increase in troponin and no chest pain EKG changes were thought to be secondary to chemotherapeutic he has not likely secondary to use of paclitaxel Echocardiogram: There is mild concentric LV hypertrophy, EF is 55 to 60%, RV sy stolic function is normal, left atrium and right atrium are mildly dilated and mild to moderate tricuspid regurgitation. No cardiac symptoms Atrial fibrillation INR 2.3, continue Coumadin Hypertension Stable, continue amlodipine and losartan Diabetes type 2 Patient is hypoglycemic this morning, asymptomatic Pharmacist consulted for glycemic control Patient takes metformin and Levemir right at home DVT prophylaxis On Coumadin, INR 2.3 Disposition PT OT in progress, recommending rehab Anticipate discharge to rehab when neutropenia resolves Subjective Follow-up for diarrhea, neutropenia Seen resting in bed, comfortable States she feels better today compared to yesterday Diarrhea resolved, tolerating diet well No urinary symptoms Denies other symptoms Review of Systems Review of Systems: All systems reviewed & are unremarkable except as noted in HPI & below Physical Exam Physical Exam: General- oriented x 3, not in distress, speaks in sentences with no effort or accessory muscle use Eyes- anicteric Neck- no JVD Lungs- clear BS bilaterally, no crackles or wheezing Heart- normal rate, regular rhythm; no murmurs Abdomen- normal bowel sounds, nondistended, soft, nontender Extremities- no pretibial edema, no calf tenderness Neuro- alert, oriented x 3; no gross focal neurologic deficits Skin- warm & dry Results & Data Vital Signs (Past 12 Hours) Vital Signs Temp Pulse Resp BP BP Pulse Ox 06/04/19 14:50 36.7 C 84 20 109/66 99 06/04/19 11:15 36.7 C 85 19 101/52 L 98 06/04/19 09:00 128/77 06/04/19 07:25 37 C 81 16 98/57 L 96
[2019-06-04] MEDS: POTASSIUM CHLORIDE / WTR 10 MEQ/100 ML PLCT IV SCH ×4 (19:14→22:36)
[2019-06-04] MEDS: OXYCODONE HCL IR 5 MG TAB (IMMEDIATE RELEASE) PO PRN (20:12)
[2019-06-04] MEDS: cefTRIAXone SODIUM 2,000 MG in DEXTROSE 5% 50 ML IV SCH (21:21)
[2019-06-05] MEDS: ACETAMINOPHEN 325 MG TAB PO PRN (00:06)
[2019-06-05 05:54] LABS: Hematocrit (blood only) 27.7 % (37-47); Hemoglobin 9.6 g/dL (12.0-16.0); Mean Corpuscular Hgb Conc 34.7 g/dL (32-36); Mean Corpuscular Volume 87.4 fL (80-100); Mean Platelet Volume 10.7 fL (7.4-10.4); Nucleated RBC # (auto) 0.02 K/uL (0-0); Nucleated RBC % (auto) 0.6 %; Platelet Count 162 K/uL (130-400); RDW Coefficient of Variation 12.5 % (11.5-14.5); RDW Standard Deviation 39.9 fL (36.4-46.3); Red Blood Count 3.17 M/uL (4.2-5.4); White Blood Count 4.35 K/uL (4.8-10.8)
[2019-06-05 06:07] LABS: INR 3.1 (0.9-1.1)
[2019-06-05 06:30] LABS: BUN Creatinine Ratio 12.2 (10-20); Calcium 7.9 mg/dl (8.5-10.1); Creatinine Clr Calc Pharmacy 93.7 ml/min; Est GFR (African American) 115.6; Est GFR (Non-African American) 99.8; Potassium 3.5 mmol/L (3.5-5.1)
[2019-06-05 06:37] LABS: Basophils # (auto) 0.03 K/uL (0-0.2); Basophils % (auto) 0.7 %; Echinocytes 1+; Eosinophils # (auto) 0.26 K/uL (0-0.5); Immature Granulocytes # (auto) 0.17 K/uL (0.00-0.02); Immature Granulocytes % (auto) 3.9 %; Lymphocytes # (auto) 2.25 K/uL (1.2-3.4); Lymphocytes % (auto) 51.7 %; Monocytes % (auto) 18.4 %; Neutrophils # (auto) 0.84 K/uL (1.4-6.5); Neutrophils % (auto) 19.3 %; Toxic Granulation Occasional
[2019-06-05] MEDS: PANTOprazole 40 MG TAB PO SCH (08:43)
[2019-06-05] MEDS: MULTIVITAMIN TAB PO SCH (08:43)
[2019-06-05] MEDS: METOPROLOL SUCC 25MG EXT REL TAB PO SCH (08:44)
[2019-06-05] MEDS: GABAPENTIN 300 MG CAP PO SCH ×2 (08:44→20:55)
[2019-06-05] MEDS: ROSUVASTATIN CALCIUM 20 MG TAB PO SCH (08:44)
[2019-06-05] MEDS: ASPIRIN 81 MG ECTAB PO SCH (08:45)
[2019-06-05] MEDS: INSULIN ASPART 100 UNITS/ML 3 ML PEN SC SCH ×4 (08:48→20:58)
[2019-06-05] MEDS: INSULIN GLARGINE SOLOSTAR 100 UNITS/ML 3 ML PEN SQ SCH (08:53)
--- NOTE | 2019-06-05 10:15 | Pharmacy Report ---
Glycemic Control Consultation - Date of Service June 05, 2019 - Scope Scope: Glycemic Pharmacist consulted by Dr Elizabeth on 06/04/19 for glycemic control and to write orders per [facility] inpatient glycemic control protocol - Objective Weight: 51.2 kg Accuchecks BSG (last 24hrs): 06/04/19 06/04/19 06/04/19 11:50 16:39 20:21 Glucose POC Glucose 285 H 81 134 H 06/05/19 06/05/19 05:42 07:57 Glucose 78 POC Glucose 80 Laboratory Data (last 24hrs): 06/05/19 05:42 Potassium 3.5 Carbon Dioxide 26 Anion Gap 5.0 Creatinine 0.40 L Est Cr Clr Drug Dosing 93.7 - Recent Pertinent Medications Outpatient Anti-diabetic Regimen: * Glimepiride 2mg PO Daily * Metformin 500mg PO BID * A1c = 7.0 % 02/20/18, new A1c ordered The patient is currently receiving: * Basal insulin: Lantus 10 units every 24 hours * Correctional Insulin: Novolog Correction per scale ACHS Goal Range: Low 120 mg/dL - High 160 mg/dL Correction Factor: 30 mg/dL/unit * Prandial insulin: Per carb ratio of 1 unit per 15 grams CHO consumed Risk Factors for Insulin Resistance: * Infection: UTI - IV Rocephin * Diet: PO - Assessment & Plan Assessment & Plan: ASSESSMENT: * 79 year old female type 2 diabetic, admitted for [place] induced diarrhea, UTI, experiencing low blood sugars as inpatient, pharmacy consulted. * Will reduce Lantus at this time for low fasting blood sugar. * Pt did have high blood sugar prior to lunch time check yesterday, but likely d/t hypoglycemia treatment x2, pt is having a poor appetite w/ nausea overall. PLAN FOR INPATIENT GLYCEMIC CONTROL: * Holding outpatient oral diabetes medications * Basal insulin - DECREASE * Lantus 7 units SQ Daily * Bolus insulin * NovoLog per scale ACHS or Q6hrs while NPO * Goal Range: Low 120 mg/dL - High 160 mg/dL - higher goal range to prevent hypoglycemia * Correction Factor: 30 mg/dL/unit * Nutritional / Prandial insulin per carb ratio of 1 unit per 15 grams CHO consumed * Please note that the plan above was derived based on current level of insulin resistance and hospital stress. These recommendations are appropriate for inpatient admission only. Plan of care upon discharge will need to be reassessed to avoid potential outpatient hypo/hyperglycemia. Thank you.
[2019-06-05 14:50] LABS: Microsomal Ab <1 IU/ML (<9); TSI <89 % baseline (<140); Thyroglobulin Antibodies <1 IU/ML (<OR=1)
[2019-06-05] MEDS: LIDOCAINE 5% 1 PATCH TD SCH (15:51)
--- NOTE | 2019-06-05 18:57 | Hospitalist Progress Note ---
Date of Service June 05, 2019 Assessment & Plan (1) Diarrhea: Likely secondary to chemotherapy regimen, history pancreatic cancer C. difficile ruled out CT scan of the abdomen and pelvis revealed nonspecific colitis Has been started on intravenous antibiotic-intravenous cefepime and Flagyl Appreciate GI input and recommendation. Octreotide subcu twice daily has been added on top of Imodium as needed for control of diarrhea MRCP noted: Possible compression of pancreatic and CBD by necrotic head mass Diarrhea resolved Continue to monitor on soft diet DC octreotide (2) Neutropenia: ANC improved, no 890 Had a discussion with oncologist, does not recommend Neupogen at this time Continue to monitor trend (3) UTI (urinary tract infection): Now on day 6 of IV antibiotic, ceftriaxone IV (4) Pancreatic cancer: Has been getting chemotherapy with Gemzar, paclitaxel and Aloxi Received about 1 to 2 weeks ago Discussed with patient's oncologist (5) Acute electrocardiogram changes: Has history of atrial fibrillation on Coumadin EKG on admission did show significant widespread inversion without any increase in troponin and no chest pain EKG changes were thought to be secondary to chemotherapeutic he has not likely secondary to use of paclitaxel Echocardiogram: There is mild concentric LV hypertrophy, EF is 55 to 60%, RV systolic function is normal, left atrium and right atrium are mildly dilated and mild to moderate tricuspid regurgitation. No cardiac symptoms Atrial fibrillation INR 3.1, hold Coumadin Hypertension Stable, continue amlodipine and losartan Diabetes type 2 Pharmacist consulted for glycemic control Patient takes metformin and Levemir right at home DVT prophylaxis INR 3.1 Disposition PT OT in progress, recommending rehab but patient declining at this time Anticipate discharge to rehab when neutropenia improves Subjective Follow-up for diarrhea, neutropenia Resting in bed, comfortable Reports mid back pain, chronic bed flares up occasionally as per patient No diarrhea today, no abdominal pain tolerating diet well No fevers or chills No other symptoms Review of Systems Review of Systems: All systems reviewed & are unremarkable except as noted in HPI & below Physical Exam Physical Exam: General- oriented x 3, not in distress, speaks in sentences with no effort or accessory muscle use Eyes- anicteric Neck- no JVD Lungs- clear breath sounds bilaterally, no crackles or wheezing Heart- normal rate, regular rhythm; no murmurs Abdomen- normal bowel sounds, nondistended, soft, nontender Extremities- no pretibial edema, no calf tenderness Neuro- alert, oriented x 3; no gross focal neurologic deficits Skin- warm & dry Results & Data Vital Signs (Past 12 Hours) Vital Signs Temp Pulse Resp BP BP Pulse Ox 06/05/19 16:35 36.7 C 75 19 98/57 L 97 06/05/19 12:05 36.5 C 76 18 99/63 L 99 06/05/19 07:41 36.6 C 86 18 130/72 98 Laboratory Results Laboratory Results - last 24 hr 06/02/19 06/04/19 06/05/19 05:19 20:21 05:42 WBC RBC Hgb Hct MCV MCH MCHC RDW Std Deviation RDW Coeff of Sukhwinder Plt Count MPV Immature Gran % (Auto) Neut % (Auto) Lymph % (Auto) [place] % (Auto) Eos % (Auto) Baso % (Auto) Immature Gran # (Auto) Neut # (Auto) Lymph # (Auto) [place] # (Auto) Eos # (Auto) Baso # (Auto) Absolute Nucleated RBC Nucleated RBC % (auto) Toxic Granulation Giant Platelets Echinocytes PT 29.0 H INR 3.1 H Sodium Potassium Chloride Carbon Dioxide Anion Gap BUN Creatinine Est Cr Clr Drug Dosing Est GFR ( Amer) Est GFR (Non-Af Amer) BUN/Creatinine Ratio Glucose POC Glucose 134 H Calcium Thyroid Stim Immunoglob <89 Thyroid Antimicrosomal <1 Thyroglobulin Antibody <1 06/05/19 06/05/19 06/05/19 05:42 05:42 07:57 WBC 4.35 L RBC 3.17 L Hgb 9.6 L Hct 27.7 L MCV 87.4 MCH 30.3 MCHC 34.7 RDW Std Deviation 39.9 RDW Coeff of Sukhwinder 12.5 Plt Count 162 MPV 10.7 H Immature Gran % (Auto) 3.9 Neut % (Auto) 19.3 Lymph % (Auto) 51.7 [place] % (Auto) 18.4 Eos % (Auto) 6.0 Baso % (Auto) 0.7 Immature Gran # (Auto) 0.17 H Neut # (Auto) 0.84 L* Lymph # (Auto) 2.25 [place] # (Auto) 0.80 H Eos # (Auto) 0.26 Baso # (Auto) 0.03 Absolute Nucleated RBC 0.02 H Nucleated RBC % (auto) 0.6 Toxic Granulation Occasional Giant Platelets 1+ Echinocytes 1+ PT INR Sodium 135 L Potassium 3.5 Chloride 104 Carbon Dioxide 26 Anion Gap 5.0 BUN 5 L Creatinine 0.40 L Est Cr Clr Drug Dosing 93.7 Est GFR ( Amer) 115.6 Est GFR (Non-Af Amer) 99.8 BUN/Creatinine Ratio 12.2 Glucose 78 POC Glucose 80 Calcium 7.9 L Thyroid Stim Immunoglob Thyroid Antimicrosomal Thyroglobulin Antibody 06/05/19 06/05/19 11:37 17:06 WBC RBC Hgb Hct MCV MCH MCHC RDW Std Deviation RDW Coeff of Sukhwinder Plt Count MPV Immature Gran % (Auto) Neut % (Auto) Lymph % (Auto) [place] % (Auto) Eos % (Auto) Baso % (Auto) Immature Gran # (Auto) Neut # (Auto) Lymph # (Auto) [place] # (Auto) Eos # (Auto) Baso # (Auto) Absolute Nucleated RBC Nucleated RBC % (auto) Toxic Granulation Giant Platelets Echinocytes PT INR Sodium Potassium Chloride Carbon Dioxide Anion Gap BUN Creatinine Est Cr Clr Drug Dosing Est GFR ( Amer) Est GFR (Non-Af Amer) BUN/Creatinine Ratio Glucose POC Glucose 225 H 92 Calcium Thyroid Stim Immunoglob Thyroid Antimicrosomal Thyroglobulin Antibody
[2019-06-05] MEDS: cefTRIAXone SODIUM 2,000 MG in DEXTROSE 5% 50 ML IV SCH (21:02)
[2019-06-05] MEDS: OXYCODONE HCL IR 5 MG TAB (IMMEDIATE RELEASE) PO PRN (21:03)
[2019-06-06 05:48] LABS: Hematocrit (blood only) 27.7 % (37-47); Hemoglobin 9.6 g/dL (12.0-16.0); Mean Corpuscular Hgb Conc 34.7 g/dL (32-36); Mean Corpuscular Volume 87.7 fL (80-100); Mean Platelet Volume 10.4 fL (7.4-10.4); Platelet Count 207 K/uL (130-400); RDW Coefficient of Variation 12.8 % (11.5-14.5); RDW Standard Deviation 40.7 fL (36.4-46.3); Red Blood Count 3.16 M/uL (4.2-5.4); White Blood Count 5.49 K/uL (4.8-10.8)
[2019-06-06 06:05] LABS: INR 3.3 (0.9-1.1); Prothrombin Time 31.1 Seconds (9.0-12.0)
[2019-06-06 06:11] LABS: Estimated Average Glucose 235 mg/dl
[2019-06-06 06:20] LABS: BUN Creatinine Ratio 6.2 (10-20); Calcium 7.8 mg/dl (8.5-10.1); Creatinine Clr Calc Pharmacy 76.1 ml/min; Est GFR (African American) 110.4; Est GFR (Non-African American) 95.3; Potassium 3.1 mmol/L (3.5-5.1)
[2019-06-06 08:13] LABS: Basophils # (auto) 0.03 K/uL (0-0.2); Basophils % (auto) 0.5 %; Echinocytes 1+; Eosinophils % (auto) 5.5 %; Immature Granulocytes # (auto) 0.34 K/uL (0.00-0.02); Immature Granulocytes % (auto) 6.2 %; Lymphocytes # (auto) 2.47 K/uL (1.2-3.4); Monocytes % (auto) 23.7 %; Neutrophils # (auto) 1.05 K/uL (1.4-6.5); Neutrophils % (auto) 19.1 %
[2019-06-06] MEDS: GABAPENTIN 300 MG CAP PO SCH (09:05)
[2019-06-06] MEDS: ASPIRIN 81 MG ECTAB PO SCH (09:05)
[2019-06-06] MEDS: METOPROLOL SUCC 25MG EXT REL TAB PO SCH (09:05)
[2019-06-06] MEDS: LIDOCAINE 5% 1 PATCH TD SCH (09:06)
[2019-06-06] MEDS: INSULIN GLARGINE SOLOSTAR 100 UNITS/ML 3 ML PEN SQ SCH (09:07)
[2019-06-06] MEDS: INSULIN ASPART 100 UNITS/ML 3 ML PEN SC SCH ×2 (09:09→14:05)
[2019-06-06] MEDS: MULTIVITAMIN TAB PO SCH (09:49)
[2019-06-06] MEDS: ROSUVASTATIN CALCIUM 20 MG TAB PO SCH (09:49)
[2019-06-06] MEDS: PANTOprazole 40 MG TAB PO SCH (09:49)
--- NOTE | 2019-06-06 12:04 | Pharmacy Report ---
Pharmacy Glycemic Short Note 2 - Date of Service June 06, 2019 - Glycemic Short BSG Results (Last 24 hours): 06/05/19 06/05/19 06/06/19 17:06 20:30 05:25 Glucose 111 H POC Glucose 92 216 H 06/06/19 06/06/19 07:40 11:39 Glucose POC Glucose 133 H 263 H OUTPATIENT ANTIDIABETIC REGIMEN: * Glimepiride 2 mg daily * Metformin 500 mg BID * A1c 9.8% on 06/06/19 ASSESSMENT: * Patient rec'd 15 units of insulin yesterday (7 of this was basal) * No change to causes of insulin resistance * Fasting = 111; continue basal dose * Postprandials elevated but some of the Novolog administrations were later PLAN FOR INPATIENT GLYCEMIC CONTROL: * Hold outpatient oral diabetes medications * Basal insulin - no change * Lantus 7 units SQ qAM * Bolus insulin - tighten CR slightly * NovoLog per scale ACHS or Q6hrs while NPO * Goal Range: Low 120 mg/dL - High 160 mg/dL * Correction Factor: 35 mg/dL/unit * Nutritional / Prandial insulin per carb ratio of 1 unit per 12 grams CHO consumed PLAN FOR DISCHARGE: * A1c increased. Patient would benefit from increasing her metformin dose or adding another oral agent such as Januvia. May have to consider insulin if A1c remains elevated in the future.
--- NOTE | 2019-06-11 12:55 | Discharge Summary ---
Date of Service June 11, 2019 Admission HPI Per Admitting Provider History obtained from patient, family, and records. Medical history significant for pancreatic cancer ongoing chemotherapy, A. fib on Coumadin, hypertension, DM 2 on oral medications, chronic hyponatremia, skin cancer as per records. Recent confinement February 2018 for back surgery under Orthopedics service. Patient had her second chemotherapy session a few days ago. Nonbloody loose stools subsequently noted with abdominal cramping. No chest pain, no S OB. Appetite not too good. Patient feels very tired. 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 Admission Exam Per Admitting Provider GENERAL: Slightly uncomfortable, no respiratory distress, lying on the left lateral decubitus position covered in blankets SKIN: Pallor , warm HEENT: pale palpebral conjunctivae, no ptosis, dry buccal mucosa NECK : Supple, no tenderness CHEST : Decreased breath sounds , no tenderness HEART : Irregular , tachycardic, systolic murmur ABDOMEN: Some distention, hypogastric tenderness EXTREMITIES : No LE swelling/tenderness, no other conspicuous deformities noted NEUROLOGIC : Coherent, no facial asymmetry, no other gross focality Principal Diagnosis Diarrhea, neutropenia, likely secondary to chemotherapy; UTI Klebsiella, medical advice patient Discharge Exam General- oriented x 3, not in distress, speaks in sentences with no effort or accessory muscle use Eyes- anicteric Neck- no JVD Lungs- clear breath sounds bilaterally, no wheezing, crackles bilaterally Heart- normal rate, regular rhythm; no murmurs Abdomen- normal bowel sounds, nondistended, soft, nontender Extremities- no pretibial edema, no calf tenderness Neuro- alert, oriented x 3; no gross focal neurologic deficits Skin- warm & dry Discharge Data Allergies Allergy/AdvReac Type Severity Reaction Status Date / Time Penicillins Allergy Intermediate Hives Verified 05/31/19 00:33 morphine AdvReac Intermediate HALLUCINATE Verified 05/31/19 00:33 S meperidine AdvReac Mild "nausea Verified 05/31/19 00:33 and vomiting" Consultations 05/31/19 00:45 ED Decision to Admit Stat 05/31/19 03:47 Consult Case Management - Discharge Planning Routine 06/01/19 03:37 Consult Gastroenterology Routine 06/01/19 07:52 Consult Hematology Routine Procedures Performed Operation Date: 06/02/19 15:10 <No data on this case meets the specified criteria> Ordered Studies 05/30/19 23:35 CT angio chest PE protocol Urgent CT angio chest PE protocol CLINICAL HISTORY: 79 years-old Female presenting with EKG changes, hypoxia, clinical concern for pulmonary embolus. TECHNIQUE: Multidetector CT angiography of the chest was performed after administration of intravenous contrast. 3-D volumetric and/or maximum intensity projection (MIP) images were subsequently reconstructed for review. IV contrast: 119 mL of Optiray 320. One or more dose lowering techniques were used consistent with the principles of ALARA (as low as reasonably achievable), including automatic exposure control, mA or kV adjustment to individual patient size, and/or use of iterative reconstruction. COMPARISON: Noncontrast CT chest from 2015. CT DOSE (mGy.cm): The estimated cumulative dose is 277.16 mGy.cm. FINDINGS: Policy Adviser topogram: Orthopedic hardware. Cholecystectomy clips also noted. Pulmonary vasculature: The study is adequate for assessment of the pulmonary vascular tree. No filling defect within the pulmonary arteries to suggest embolus. Main pulmonary artery is not enlarged. No flattening of the interventricular septum. No intracardiac filling defect. Reflux of contrast into the intrahepatic IVC. Remaining chest: Soft tissues: Normal thyroid. Left subclavian Mediport terminates in the lower SVC. No axillary, supraclavicular, internal mammary, mediastinal, or hilar lymphadenopathy. Atherosclerosis of the aorta. Normal heart size. Coronary artery calcification. No pericardial or pleural effusion. Small sliding-type hiatal hernia. Lungs and airways: No pneumothorax. Central airways patent. Pulmonary arteries are not significantly enlarged relative to adjacent bronchi. No interlobular septal thickening. No focal infiltrate or nodule. Musculoskeletal: Degenerative changes of the spine. IMPRESSION: 1. No evidence of pulmonary embolus. No acute intrathoracic pathology. 05/31/19 01:34 CT abd pelvis wo con Urgent FINDINGS: Policy Adviser topogram: Orthopedic hardware. Cholecystectomy clips. Lung bases: Normal heart size. Coronary artery and aortic valve calcification. No pericardial or pleural effusion. Minimal dependent changes likely atelectasis. Liver: Normal morphology. Normal density. Biliary: Mild biliary ductal prominence likely a reservoir effect in the post cholecystectomy state. Gallbladder surgically absent. Pancreas: Atrophy of the pancreatic body and tail with pancreatic ductal dilatation and redemonstration of the pancreatic head mass. Effaced fat plane adjacent to the superior mesenteric vein and artery. Spleen: Normal noncontrast appearance. Adrenal glands: Normal noncontrast appearance. Kidneys and ureters: Excreted contrast noted in the urinary collecting systems. Normal noncontrast appearance of the kidneys otherwise. Evaluation for nephrolithiasis limited. Apparent resolution of prior right urothelial thickening. Bladder: The bladder is opacified with excreted contrast. Pelvic organs: Uterus surgically absent. Bowel: Mild wall thickening of the mid to distal sigmoid colon may be present. Alternatively, this could be due to underdistention. Mild scattered colonic wall thickening may be noted elsewhere as well. The appendix is normal. No bowel obstruction. Small sliding type hiatal hernia. Peritoneal cavity: No free fluid or intraperitoneal gas. Lymph nodes: No gross lymphadenopathy allowing for noncontrast technique. Few subcentimeter lymph nodes in the root of the small bowel mesentery with assoc iated stranding in the mesentery, nonspecific and possibly related to mesenteric panniculitis rather than a metastatic source. Vasculature: Atherosclerosis of the normal caliber abdominal aorta. Abdominal wall: Normal. Musculoskeletal: Osteopenia suspected. Degenerative changes of the spine. Postsurgical changes of laminectomies as well as posterior lumbar fusion. IMPRESSION: 1. Allowing for noncontrast technique, findings suggest scattered areas of mild colonic wall thickening, which raise concern for mild colitis likely on an infectious or inflammatory basis. 2. Redemonstration of the pancreatic head mass consistent with malignancy. Evaluation for metastatic disease limited on this noncontrast exam. 3. Resolution of the urothelial inflammatory change of the prior CT. 06/01/19 11:09 MR MRCP Routine FINDINGS: The gallbladder is surgically absent. The common bile duct is dilated, measuring up to 14 mm. The common duct is narrowed at the level of a pancreatic head mass. The distal common duct is normal in caliber and measures up to 5 mm. No intraluminal filling defects are identified to suggest choledocholithiasis. There is mild intrahepatic biliary ductal dilatation. There is marked dilatation of the mid to distal pancreatic duct to the level of the pancreatic head mass. This measures up to 9 mm diameter. The pancreatic duct at the ampulla is normal in caliber. The unenhanced liver is grossly unremarkable. Again seen is a large infiltrative mass lesion the region of the pancreatic head. This is not well delineated. The pancreatic body and tail are markedly atrophic. The spleen and adrenal glands are grossly normal. The kidneys demonstrate cortical atrophy and are without hydronephrosis. There is no abdominal ascites. No evidence of bowel obstruction is identified. There are trace pleural effusions. The heart is normal in size. A hiatal hernia is noted. Extensive postoperative change is seen throughout the lumbar spine. This degrades assessment for osseous lesions. IMPRESSION: 1. There is marked dilatation of the pancreatic duct as well as the common bile duct secondary to a large infiltrative pancreatic head mass. This is unchanged from recent prior CT scans. 2. The gallbladder is surgically absent. 3. There is no evidence of choledocholithiasis. 4. Trace pleural effusions. Hospital Course (1) Diarrhea: Likely secondary to chemotherapy regimen, history pancreatic cancer C. 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 Landon (2) Neutropenia: ANC improved, stable at around 1000 Had a discussion with oncologist Dr. Landon, does not recommend Neupogen at this time Continue to monitor trend repeat CBC on ff up with PCP (3) UTI (urinary tract infection): Cultures: Positive for Klebsiella In light of recent chemotherapy, patient is immune compromised Received ceftriaxone IV while admitted Cefdinir x 7 days ordered (4) Pancreatic cancer: Has been getting chemotherapy with Gemzar, paclitaxel and Aloxi Received about 1 to 2 weeks ago Discussed with patient's oncologist (5) Acute electrocardiogram changes: Has history of atrial fibrillation on Coumadin EKG on admission did show significant widespread inversion without any increase in troponin and no chest pain EKG changes were thought to be secondary to chemotherapeutic he has not likely secondary to use of paclitaxel Echocardiogram: There is mild concentric LV hypertrophy, EF is 55 to 60%, RV systolic function is normal, left atrium and right atrium are mildly dilated and mild to moderate tricuspid regurgitation. No cardiac symptoms Atrial fibrillation INR 3.3 Advised to hold Coumadin Coumadin clinic to follow patient Hypertension Stable, continue amlodipine and losartan Diabetes type 2 Pharmacist consulted for glycemic control Patient takes metformin and Levemir right at home Disposition Discharge to home, follow-up with PCP as outlined in discharge instructions Follow-up with oncologist as scheduled Total Time Total Time Spent Total Time Spent (In Minutes): 40 minutes Discharge Plan Discharge Items Patient Disposition: Home - Home Health Services Reason For Visit: ABNORMAL EKG, ABDOMINAL PAIN Discharge Diagnosis: DIARRHEA, URINARY TRACT INFECTION Discharge Goals: Diagnostic testing and Therapeutic intervention Activity: As commented below Activity Comment: RESUME ACTIVITY GRADUALLY TOLERATED, ALWAYS AMBULATE WITH CAUTION Lifting: Wait until after follow-up appointment Exercise/Sports: Wait until after follow-up appointment Exercise Comment: CONTINUE PT/OT AT HOME Driving/Machine Use Comment: NO DRIVING Non-emergency contact: Primary Care Provider and Oncologist Call non-emergency contact if: you have any medication questions, your symptoms worsen, your pain is not controlled and you have a fever Diet: Heart Healthy Addtl Provider Instructions: PLEASE FOLLOW UP WITH [facility] PRIMARY CARE PHYSICIAN DR. MURPHY ON Sunday06/11/19 12:45PM AT THE [facility]ICE. FOLLOW UP WITH YOUR ONCOLOGIST SCHEDULED. DO NOT TAKE COUMADIN UNTIL FURTHER NOTICE BY [facility] PHARMACIST/COUMADIN CLINIC ON Sunday06/09/19. REPEAT BLOODWORK/INR ON Sunday06/09/19. STAY AWAY FROM PUBLIC PLACES, SICK CONTACTS. ALWAYS WASH YOUR HANDS THOROUGHLY. INCLUDE BANANA, ORANGES, TOMATOES IN YOUR DAILY DIET. DRINK PLENTY OF FLUIDS. PLEASE CALL PRIMARY CARE PHYSICIAN OR RETURN TO THE ER IMMEDIATELY IF WITH WORSENING OF SYMPTOMS, FEVER/CHILLS, WEAKNESS, NAUSEA/VOMITING. Prescriptions: New cefdinir 300 mg capsule 300 mg PO BID 7 Days Qty: 14 RF: 0 Continued aspirin [Aspir-81] 81 mg Tablet,Delayed Release (Dr/Ec) 81 mg PO QAM RF: 0 glimepiride 1 mg tablet 2 mg PO QPM RF: 0 gabapentin 300 mg capsule 300 mg PO BID RF: 0 metoprolol succinate 25 mg tablet extended release 24 hr 75 mg PO QAM RF: 0 losartan 100 mg tablet 50 mg PO QAM RF: 0 metformin 500 mg tablet extended release 24 hr 500 mg PO BID RF: 0 cholecalciferol (vitamin D3) [Vitamin D3] 1,000 unit Capsule 1,000 unit PO QAM RF: 0 amlodipine 5 mg tablet 5 mg PO QAM RF: 0 ranitidine HCl 150 mg tablet 150 mg PO BID RF: 0 nitroglycerin [Nitrostat] 0.4 mg Tablet, Sublingual 0.4 mg sublingual UD RF: 0 rosuvastatin 20 mg tablet 20 mg PO QAM RF: 0 Slow-Mag 71.5 mg tablet,delayed release (DR/EC) 143 mg PO TID RF: 0 oxycodone 5 mg tablet 5 mg PO Q6H PRN (Reason: pain) Qty: 10 RF: 0 omeprazole 40 mg capsule,delayed release(DR/EC) 40 mg PO DAILY RF: 0 ondansetron HCl 8 mg tablet 8 mg PO Q8 PRN (Reason: Nausea) RF: 0 prochlorperazine maleate 10 mg tablet 10 mg PO Q6 PRN (Reason: Nausea) RF: 0 multivitamin Tablet 1 tab PO DAILY RF: 0 Discontinued warfarin 2.5 mg tablet 2.5 mg PO DAILY RF: 0 Stand-Alone Forms: [facility] Discharge Orders: Discharge Order (Routine); Ordered 06/06/19 Ordered By: Freddie Elizabeth Admission Data Admit Date/Time: 06/01/19 10:37 Attending Provider: Freddie Elizabeth Admit Provider: Baljit Johnson Primary Care Provider: Jes Soler Other Providers: Baljit Johnson ; Robel Munoz ; Debbie Gomes ; Alejandro Montalvo Service: Telemetry Medical Other Interventions: Discharge Summary Assessment (RN) Last Done: 06/06/19 13:07 DC Date/Time DO NOT enter until pt leaves facility: 06/06/19 16:29
--- NOTE | 2019-06-11 13:08 | Hospitalist Progress Note ---
Date of Service June 11, 2019 Assessment & Plan (1) Diarrhea: (1) Diarrhea: Likely secondary to chemotherapy regimen, history pancreatic cancer C. difficile ruled out CT scan of the abdomen and pelvis revealed nonspecific colitis started on intravenous antibiotic-intravenous cefepime and Flagyl GI consulted Octreotide subcu twice daily has been added on top of Imodium as needed for control of diarrhea MRCP noted: Possible compression of pancreatic and CBD by necrotic head mass Per GI, patient needs outpatient follow-up for possible ERCP Diarrhea resolved Tolerating soft diet Discussed with patient's wire spinner Dr. Landon (2) Neutropenia: ANC improved, stable at around 1000 Had a discussion with oncologist Dr. Landon, does not recommend Neupogen at this time Continue to monitor trend repeat CBC on ff up with PCP (3) UTI (urinary tract infection): Cultures: Positive for Klebsiella In light of recent chemotherapy, patient is immune compromised Received ceftriaxone IV while admitted Cefdinir x 7 days ordered (4) Pancreatic cancer: Has been getting chemotherapy with Gemzar, paclitaxel and Aloxi Received about 1 to 2 weeks ago Discussed with patient's oncologist (5) Acute electrocardiogram changes: Has history of atrial fibrillation on Coumadin EKG on admission did show significant widespread inversion without any increase in troponin and no chest pain EKG changes were thought to be secondary to chemotherapeutic he has not likely secondary to use of paclitaxel Echocardiogram: There is mild concentric LV hypertrophy, EF is 55 to 60%, RV systolic function is normal, left atrium and right atrium are mildly dilated and mild to moderate tricuspid regurgitation. No cardiac symptoms Atrial fibrillation INR 3.3 Advised to hold Coumadin Coumadin clinic to follow patient Hypertension Stable, continue amlodipine and losartan Diabetes type 2 Pharmacist consulted for glycemic control Patient takes metformin and Levemir right at home Disposition Discharge to home, follow-up with PCP as outlined in discharge instructions Follow-up with oncologist as scheduled Subjective Delayed entry date of service June 06, 2019 Seen resting in bed, comfortable, in good spirits States she feels much better overall Denies diarrhea, no abdominal pain, tolerating diet well No nausea, no urinary symptoms no fevers or chills Denies other symptoms States she is ready would like to be discharged Review of Systems Review of Systems: All systems reviewed & are unremarkable except as noted in HPI & below Physical Exam Physical Exam: General- oriented x 3, not in distress, speaks in sentences with no effort or accessory muscle use Eyes- anicteric Neck- no JVD Lungs- clear breath sounds bilaterally, no wheezing, crackles bilaterally Heart- normal rate, regular rhythm; no murmurs Abdomen- normal bowel sounds, nondistended, soft, nontender Extremities- no pretibial edema, no calf tenderness Neuro- alert, oriented x 3; no gross focal neurologic deficits EXTREMITIES : No LE swelling/tenderness, no other conspicuous deformities noted NEUROLOGIC : Coherent, no facial asymmetry, no other gross focality Results & Data Laboratory Results All noted and reviewed
== END 2019-06-06 16:29 | disposition home health service (06) | DRG 394 ==
LOC: 2W 21:51 → ED 21:51 → 2W 05-31 02:58 → SUATTDRO 06-01 10:37